=== PATIENT | female | born 1960 | race Caucasian/White ===

== ENCOUNTER 2021-05-04 11:33 | Emergency (ER) | payer MEDICARE, OTHER, SELFPAY ==
[2021-05-04 11:47] VITALS: BP 110/72; BP 141/80; PULSE 83; PULSE 90; RESP 18; TEMP 36.7; O2SAT 96; O2SAT 98; BMI 31.4
--- NOTE | 2021-05-04 11:51 | ED_ITS ---
HPI - Chest Pain General Chief Complaint: Arrhythmia/Palpitations Stated Complaint: chest pain Time Seen by Provider: 05/04/21 11:51 Source: patient Mode of arrival: ambulatory Limitations: no limitations History of Present Illness HPI narrative: Patient with no known coronary artery disease had a stress test, angiogram years ago for atypical chest pain negative negative workup in the past been having uneasiness not feeling good for last 1 month been followed by psychiatrist for chronic pain in the left hip after rib surgery on Cymbalta now. Today just prior to arrival patient noticed palpitation checked her pulse felt like AFib as patient is in medical field called EMS: EKG showed AFib with heart rate more than 150 patient received 20 mg of IV Cardizem by EMS when she arrived her heart rate was less than 100 still AFib. Patient not sure whether she checked her pulse is in last 1 month. Patient just does not feel good unable to explain feeling in the chest no shortness breath no passing-out felt dizzy earlier Related Data Previous Rx's Medication Instructions Recorded diltiazem HCl 120 mg 120 mg PO QAM #30 cap 05/04/21 capsule,extended release 24 hr (Cardizem CD) rivaroxaban 20 mg tablet (Xarelto) 20 mg PO QPM #30 tab 05/04/21 Allergies Allergy/AdvReac Type Severity Reaction Status Date / Time amoxicillin [Amoxicillin] Allergy Mild RASH Verified 05/04/21 11:46 cefaclor [From Ceclor] Allergy Mild RASH Verified 05/04/21 11:46 Sulfa (Sulfonamide Allergy Mild RASH Verified 05/04/21 11:46 Antibiotics) HIVES, rash [Sulfa (Sulfonamides)] doxycycline [DOXYCYCLINE] Allergy Unknown ULCER Verified 05/04/21 11:46 Review of Systems Review of Systems: Yes all other systems are reviewed and are negative [facility] Social History Social History Alcohol intake: never Patient Tobacco Use Status: Never used Tobacco Use of substances other than those prescribed or required for medical reasons: Yes Substance Use Type: Marijuana Substance Use Frequency: Occasionally Advance Directives: Yes Advance Directives Information Provided: Yes Advance Directives on File: No Patient : No Physical Exam Vital Signs: Vital Signs: Last Vital Signs Temp 97.4 F 05/04/21 12:37 Pulse 84 05/04/21 14:26 Resp 18 08/20/21 13:16 BP 112/81 05/04/21 14:26 Pulse Ox 96 05/04/21 13:16 Body Mass Index 31.4 Appearance: Alert. Oriented X3. No acute distress. Eyes: PERRLA, No Nystagmus ENT: Pharynx normal. Oral Mucosa moist Neck: Normal inspection. Neck supple. CVS: IRRegular irregular heart rate, no murmur/gallop, Pulses normal. Respiratory: No respiratory distress. Equal air entry bilateral, no wheezing/rales/rhonchi Abdomen: Soft and nontender. Bowel sounds are present, no mass palpable, no CVA tenderness Skin: Skin warm and dry. Normal skin color. Normal skin turgor. Extremities: No lower extremity edema. No calf tenderness Neuro: Oriented X 3. No motor deficit. No sensory deficit.No cerebellar signs , cranial nerves II-XII intact MDM - Chest Pain MDM Narrative Medical decision making narrative: Patient with new onset atrial fibrillation duration not very clear heart rate controlled after 20 mg of IV Cardizem given by EMS. Patient had used beta-ayana in the past but heart rate dropped to 40s case discussed with Dr. Ndiaye key punch operator advised to give Cardizem CD 120 mg daily and Xarelto 20 mg daily which was given to the patient. Patient advised to follow-up with key punch operator next week for possible cardioversion and further evaluation during he is staying in the ER patient's heart rate stayed less than 100 with transient increased to 110 when ambulated Lab Data Attestation: I reviewed the patient's lab results. Result diagrams: 05/04/21 12:16 05/04/21 12:16 Labs: Lab Results 05/04/21 05/04/21 05/04/21 Range/Units 12:16 12:16 12:16 WBC 5.6 (4.8-10.8) X10*3/uL RBC 4.95 (4.20-5.50) X10*6/uL Hgb 14.6 (12.0-16.0) g/dl Hct 43.6 (37-47) % MCV 88.1 (80-98) fL MCH 29.5 (27.0-33.0) pg MCHC 33.5 (31.0-35.0) g/dl RDW 12.3 (11.0-16.0) % Plt Count 276 (160-400) X10*3/uL MPV 9.9 (9.4-12.3) fL Immature Gran % (Auto) 0.2 (0.0-0.4) % Neut % (Auto) 67.5 (45-73) % Lymph % (Auto) 23.2 (20-40) % [place] % (Auto) 6.1 (2-11) % Eos % (Auto) 2.5 (0-4) % Baso % (Auto) 0.5 (0-2) % Lymph # (Auto) 1.3 (1.2-4.9) X10*3/uL [place] # (Auto) 0.3 (0.1-1.2) X10*3/uL Eos # (Auto) 0.1 (0.0-0.4) X10*3/uL Baso # (Auto) 0.0 (0.0-0.2) X10*3/uL Abs Immat Gran (auto) 0.01 (0.00-0.03) X10*3/uL Absolute Neuts (auto) 3.8 (2.0-8.3) X10*3/uL Absolute Nucleated RBC 0.000 (0.0-0.012) X10*3/uL Nucleated RBC % (auto) 0.0 (0.0-0.2) /100WBC PT 11.3 (9.9-13.0) SEC INR 1.0 (0.9-1.1) APTT 35.3 (24.1-38.0) SEC Sodium 141 (135-145) mmol/L Potassium 4.5 (3.3-5.1) mmol/L Chloride 112 H (96-108) mmol/L Carbon Dioxide 23 (22-29) mmol/L Anion Gap 11 L (12-20) BUN 21 H (9-16) mg/dL Creatinine 0.91 (0.5-1.4) mg/dL Estim Creat Clear Calc 71.9 Estimated GFR > 60 Random Glucose 95 (60-115) mg/dL Calcium 9.1 (8.4-10.2) mg/dL Magnesium 2.1 (1.6-2.6) mg/dL Total Bilirubin (0.0-1.0) mg/dL Direct Bilirubin (0.0-0.5) mg/dL AST (5-31) U/L ALT (0-31) U/L Alkaline Phosphatase (39-117) U/L Troponin I High Sens (<3.5-17.0) ng/L Total Protein (6.5-8.0) g/dL Albumin (3.5-5.0) g/dL COVID-19 (GALDINO) (Negative) COVID-19 Clin Com 05/04/21 05/04/21 05/04/21 Range/Units 12:16 12:16 12:16 WBC (4.8-10.8) X10*3/uL RBC (4.20-5.50) X10*6/uL Hgb (12.0-16.0) g/dl Hct (37-47) % MCV (80-98) fL MCH (27.0-33.0) pg MCHC (31.0-35.0) g/dl RDW (11.0-16.0) % Plt Count (160-400) X10*3/uL MPV (9.4-12.3) fL Immature Gran % (Auto) (0.0-0.4) % Neut % (Auto) (45-73) % Lymph % (Auto) (20-40) % [place] % (Auto) (2-11) % Eos % (Auto) (0-4) % Baso % (Auto) (0-2) % Lymph # (Auto) (1.2-4.9) X10*3/uL [place] # (Auto) (0.1-1.2) X10*3/uL Eos # (Auto) (0.0-0.4) X10*3/uL Baso # (Auto) (0.0-0.2) X10*3/uL Abs Immat Gran (auto) (0.00-0.03) X10*3/uL Absolute Neuts (auto) (2.0-8.3) X10*3/uL Absolute Nucleated RBC (0.0-0.012) X10*3/uL Nucleated RBC % (auto) (0.0-0.2) /100WBC PT (9.9-13.0) SEC INR (0.9-1.1) APTT (24.1-38.0) SEC Sodium (135-145) mmol/L Potassium (3.3-5.1) mmol/L Chloride (96-108) mmol/L Carbon Dioxide (22-29) mmol/L Anion Gap (12-20) BUN (9-16) mg/dL Creatinine (0.5-1.4) mg/dL Estim Creat Clear Calc Estimated GFR Random Glucose (60-115) mg/dL Calcium (8.4-10.2) mg/dL Magnesium (1.6-2.6) mg/dL Total Bilirubin 0.5 (0.0-1.0) mg/dL Direct Bilirubin 0.2 (0.0-0.5) mg/dL AST 15 (5-31) U/L ALT 15 (0-31) U/L Alkaline Phosphatase 67 (39-117) U/L Troponin I High Sens < 3.5 (<3.5-17.0) ng/L Total Protein 6.4 L (6.5-8.0) g/dL Albumin 4.1 (3.5-5.0) g/dL COVID-19 (GALDINO) Negative (Negative) COVID-19 Clin Com See Note Discharge Plan Discharge Clinical Impression: Atrial fibrillation Qualifiers: Atrial fibrillation type: paroxysmal Qualified Code(s): I48.0 - Paroxysmal atrial fibrillation Patient Disposition: Home, Self-Care Instructions: A-fib (Atrial Fibrillation) (ED) Additional Instructions: Stop amlodipine Start taking Cardizem 120 mg daily Xarelto 20 mg daily Avoid caffeine/any exertion See key punch operator next week Report to the ER if persistent palpitation/passing out /chest pain Prescriptions: New diltiazem HCl [Cardizem CD] 120 mg capsule,extended release 24hr 120 mg PO QAM Qty: 30 RF: 0 Xarelto 20 mg tablet 20 mg PO QPM Qty: 30 RF: 0 Referrals: Reid Ndiaye MD [Physician] - 3 days
--- NOTE | 2021-05-04 12:01 | ECG_ITS ---
Test Reason : WEAKNESS Blood Pressure : / mmHG Vent. Rate : 078 BPM Atrial Rate : 220 BPM P-R Int : 000 ms QRS Dur : 078 ms QT Int : 386 ms P-R-T Axes : 000 -09 040 degrees QTc Int : 440 ms Atrial fibrillation Abnormal ECG When compared with ECG of 04-FEB-2016 13:09, Atrial fibrillation has replaced Sinus rhythm Referred By: Joe Huitron Electronically Signed By:EMILY HODGE
[2021-05-04 12:23] LABS: MANUAL DIFF FLAG NO
[2021-05-04 12:27] LABS: Basophils Percent Auto 0.5 % (0-2); Eosinophils Absolute Auto 0.1 X10*3/uL (0.0-0.4); Eosinophils Percent Auto 2.5 % (0-4); Hematocrit 43.6 % (37-47); Hemoglobin 14.6 g/dl (12.0-16.0); Imm Gran Abs Auto 0.01 X10*3/uL (0.00-0.03); Imm Gran Pct Auto 0.2 % (0.0-0.4); Lymphocytes Absolute Auto 1.3 X10*3/uL (1.2-4.9); Lymphocytes Percent Auto 23.2 % (20-40); Mean Corpuscular HGB Conc 33.5 g/dl (31.0-35.0); Mean Corpuscular Hemoglobin 29.5 pg (27.0-33.0); Mean Corpuscular Volume 88.1 fL (80-98); Mean Platelet Volume 9.9 fL (9.4-12.3); Monocytes Absolute Auto 0.3 X10*3/uL (0.1-1.2); Monocytes Percent Auto 6.1 % (2-11); Neutrophils Absolute Auto 3.8 X10*3/uL (2.0-8.3); Neutrophils Percent Auto 67.5 % (45-73); Platelet Count 276 X10*3/uL (160-400); Red Blood Count 4.95 X10*6/uL (4.20-5.50); Red Cell Distribution Width 12.3 % (11.0-16.0); White Blood Count 5.6 X10*3/uL (4.8-10.8)
[2021-05-04 12:33] LABS: Prothrombin Time 11.3 SEC (9.9-13.0)
[2021-05-04 12:36] LABS: Partial Thromboplastin Time 35.3 SEC (24.1-38.0)
[2021-05-04 12:37] VITALS: BP 122/76; PULSE 84; RESP 15; TEMP 36.3; O2SAT 97
[2021-05-04 12:38] LABS: COVID-19 Test Negative (Negative)
[2021-05-04 12:55] LABS: Anion Gap 11 (12-20); Blood Urea Nitrogen 21 mg/dL (9-16); Calcium 9.1 mg/dL (8.4-10.2); Carbon Dioxide 23 mmol/L (22-29); Chloride 112 mmol/L (96-108); Creatinine Clr Calc Pharmacy 71.9; Estimated Glomerular Filt Rate > 60; Glucose Random 95 mg/dL (60-115); Magnesium 2.1 mg/dL (1.6-2.6); Potassium 4.5 mmol/L (3.3-5.1); Sodium 141 mmol/L (135-145)
[2021-05-04 12:57] LABS: Alanine Aminotransferase 15 U/L (0-31); Albumin Level 4.1 g/dL (3.5-5.0); Alkaline Phosphatase 67 U/L (39-117); Aspartate Amino Transferase 15 U/L (5-31); Bilirubin Direct 0.2 mg/dL (0.0-0.5); Bilirubin Total 0.5 mg/dL (0.0-1.0); Total Protein 6.4 g/dL (6.5-8.0)
[2021-05-04 12:59] LABS: Troponin-I High Sensitivity < 3.5 ng/L (<3.5-17.0)
[2021-05-04 13:16] VITALS: BP 132/64; PULSE 97; RESP 18; O2SAT 96
[2021-05-04 13:17] VITALS: PULSE 90
[2021-05-04 14:26] VITALS: BP 112/81; PULSE 84
[2021-05-04] MEDS: dilTIAZem HCL CD 120 MG CAP.ER.DEG PO (14:26)
[2021-05-04] MEDS: Aspirin 81 MG TAB.CHEW PO (14:28)
--- NOTE | 2021-05-04 14:30 | PC.NURSE ---
Pt had gotten up to commode with HR incrasing into 150s. MD ordered po medications. Meds just given but HR back down on its own with rest. BP remains stable. Pt in NAD but states that she still feels off and uncomfortbale .
[2021-05-04] MEDS: Rivaroxaban 20 MG TABLET PO (14:45)
== END 2021-05-04 15:55 | disposition home or self-care (01) ==
PROVIDERS: Emergency Provider Internal Medicine
DX: I48.0 Paroxysmal atrial fibrillation (principal); R07.9 Chest pain, unspecified; Z20.822 Contact with and (suspected) exposure to COVID-19; I10 Essential (primary) hypertension; E78.5 Hyperlipidemia, unspecified; Z85.51 Personal history of malignant neoplasm of bladder
CPT/HCPCS: 36415; 80048; 80076; 83735; 84484; 85025; 85610; 85730; 87635; 93005; 99284; 99285

== ENCOUNTER → 2021-05-09 08:24 | Outpatient (BNVA) | payer MEDICARE, SELFPAY | PROVIDERS: PCP Internal Medicine Medical Oncology; Referring Provider Internal Medicine Medical Oncology; Visit Provider Internal Medicine Cardiovascular Disease | DX: R07.89 Other chest pain (principal); I48.0 Paroxysmal atrial fibrillation | CPT/HCPCS: 93005; 99202 ==

== ENCOUNTER → 2021-05-23 10:43 | Outpatient (REF) | payer MEDICARE, SELFPAY ==
--- NOTE | 2021-05-23 10:58 | HM_ITS ---
Patient underwent Holter monitor for total of 6 days and 23 hours. Baseline rhythm was normal sinus rhythm with average heart rate of 62 beats per minute No significant pauses noted No episodes of sustained or prolonged atrial fibrillation noted Total burden of PACs at 207 beats, consistent with very rare PACs with 0.03%. One short 6 beat run of SVEs which is irregular. Patient reported 1 episode of feeling faint and correlated with sinus bradycardia at 48 beats per minute. Other patient reported events correlated with sinus rhythm. MTDD
--- NOTE | 2021-05-23 11:19 | CA_ITS ---
Acquisition Time: 2021-05-23 11:20:57 Total Exercise Time: 00:06:11 Test Indications: cp, sob Medications: see chart Protocol: STU Max HR: 148 BPM 91% of Pred: 161 BPM Max BP: 196/070 mmHG Max Work Load: 7.2 METS Exercise stress test with exercise 6 min 11 sec of Stu protocol, with moderate to severe shortness of breath, no chest discomfort, without arrythmia, with BP 160/88 and rise to 196/70 with exercise, with artifact at peak exercise, without EKG changes meeting criteria for ischemia at 36 sec of recovery and remainder of recovery. In recovery BP lowered to 130/78 and sob gradually resolved. Echo images obtained by tech at rest and immediately post peak exercise. Definity contrast used. Test reviewed with Dr Ndiaye. Referred By: Reid Ndiaye Overread By: AARON DOMINGO
[2021-05-23 12:16] LABS: Cholesterol 292 mg/dL; HDL Cholesterol 53 mg/dL; LDL Cholesterol Calculated 204 mg/dl; Triglycerides 178 mg/dL
== END ==
LOC: HO.CARD 10:43
PROVIDERS: Visit Provider Internal Medicine Cardiovascular Disease
DX: R07.89 Other chest pain (principal); I48.0 Paroxysmal atrial fibrillation; I25.10 Atherosclerotic heart disease of native coronary artery without angina pectoris; E78.5 Hyperlipidemia, unspecified
CPT/HCPCS: 36415; 80061; 86141; 93242; 93350; Q9957

== ENCOUNTER 2021-05-30 10:24 | Outpatient (REF) | payer MEDICARE, SELFPAY ==
[2021-05-30 14:07] LABS: Hematocrit 38.6 % (37-47); Hemoglobin 12.8 g/dl (12.0-16.0); Mean Corpuscular HGB Conc 33.2 g/dl (31.0-35.0); Mean Corpuscular Hemoglobin 29.5 pg (27.0-33.0); Mean Corpuscular Volume 88.9 fL (80-98); Mean Platelet Volume 10.8 fL (9.4-12.3); Platelet Count 249 X10*3/uL (160-400); Red Blood Count 4.34 X10*6/uL (4.20-5.50); Red Cell Distribution Width 12.7 % (11.0-16.0); White Blood Count 5.1 X10*3/uL (4.8-10.8)
[2021-05-30 14:09] LABS: INTERNATIONAL NORM RATIO 1.1 (0.9-1.1); Prothrombin Time 12.2 SEC (9.9-13.0)
[2021-05-30 14:30] LABS: Anion Gap 12 (12-20); Blood Urea Nitrogen 14 mg/dL (9-16); Calcium 9.7 mg/dL (8.4-10.2); Carbon Dioxide 26 mmol/L (22-29); Chloride 110 mmol/L (96-108); Estimated Glomerular Filt Rate > 60; Glucose Random 88 mg/dL (60-115); Potassium 4.6 mmol/L (3.3-5.1); Sodium 143 mmol/L (135-145)
== END 2021-05-30 10:25 | disposition home or self-care (01) ==
LOC: HO.LAB 10:24
PROVIDERS: PCP Internal Medicine Medical Oncology; Referring Provider Internal Medicine Medical Oncology; Visit Provider Internal Medicine Cardiovascular Disease
DX: R06.02 Shortness of breath (principal); I10 Essential (primary) hypertension; I48.0 Paroxysmal atrial fibrillation; Z79.01 Long term (current) use of anticoagulants
CPT/HCPCS: 36415; 80048; 85027; 85610; 99212

== ENCOUNTER → 2021-06-06 13:28 | Outpatient (BNVA) | payer MEDICARE, SELFPAY | PROVIDERS: PCP Internal Medicine Medical Oncology; Visit Provider Nurse Practitioner Family | DX: Z51.89 Encounter for other specified aftercare (principal); R06.02 Shortness of breath; Z98.890 Other specified postprocedural states | CPT/HCPCS: 99212 ==

== ENCOUNTER → 2021-06-14 12:58 | Outpatient (BNVA) | payer MEDICARE, SELFPAY | PROVIDERS: PCP Internal Medicine Medical Oncology; Visit Provider Internal Medicine Cardiovascular Disease | DX: Z01.810 Encounter for preprocedural cardiovascular examination (principal); I25.10 Atherosclerotic heart disease of native coronary artery without angina pectoris; I48.0 Paroxysmal atrial fibrillation | CPT/HCPCS: 99212 ==

== ENCOUNTER → 2022-09-20 11:53 | Outpatient (BNVA) | payer MEDICARE, SELFPAY | PROVIDERS: PCP Internal Medicine Medical Oncology; Visit Provider Psychiatry & Neurology Psychiatry | DX: C67.9 Malignant neoplasm of bladder, unspecified (principal); F33.9 Major depressive disorder, recurrent, unspecified; F41.1 Generalized anxiety disorder; I25.10 Atherosclerotic heart disease of native coronary artery without angina pectoris; I10 Essential (primary) hypertension; I48.0 Paroxysmal atrial fibrillation; Z98.890 Other specified postprocedural states | CPT/HCPCS: 90833; 99212 ==

== ENCOUNTER → 2022-11-01 14:09 | Outpatient (BNVA) | payer MEDICARE, SELFPAY | PROVIDERS: PCP Internal Medicine Medical Oncology; Visit Provider Psychiatry & Neurology Psychiatry | DX: Z13.89 Encounter for screening for other disorder (principal) ==

== ENCOUNTER → 2022-12-25 12:27 | Outpatient (BNVA) | payer MEDICARE, SELFPAY | PROVIDERS: PCP Internal Medicine Medical Oncology; Visit Provider Psychiatry & Neurology Psychiatry | DX: F41.1 Generalized anxiety disorder (principal); F33.9 Major depressive disorder, recurrent, unspecified | CPT/HCPCS: 90833; 99212 ==

== ENCOUNTER 2023-01-16 09:46 | Outpatient (REF) | payer MEDICARE, SELFPAY ==
--- NOTE | ~2023-01-16 | XR_ITS ---
EXAMINATION: XR CHEST CLINICAL INFORMATION: Pneumonia COMPARISON: Previous chest x-ray most recent from 2016 TECHNIQUE: 2 views of the chest were obtained. FINDINGS: The cardiac and mediastinal contours are stable. The lungs are clear. No pleural effusion or pneumothorax. Mild thoracic scoliosis and degenerative changes. Postsurgical changes to the lower cervical spine. XR/XR chest 2V IMPRESSION: No evidence of pneumonia.
== END 2023-01-16 09:47 | disposition home or self-care (01) ==
LOC: HO.XRAY 09:46
PROVIDERS: PCP Internal Medicine Medical Oncology; Visit Provider Internal Medicine Medical Oncology
DX: J18.9 Pneumonia, unspecified organism (principal)
CPT/HCPCS: 71046

== ENCOUNTER → 2023-02-25 12:08 | Outpatient (BNVA) | payer MEDICARE, SELFPAY | PROVIDERS: PCP Internal Medicine Medical Oncology; Visit Provider Psychiatry & Neurology Psychiatry | DX: F41.1 Generalized anxiety disorder (principal); F33.9 Major depressive disorder, recurrent, unspecified; I25.10 Atherosclerotic heart disease of native coronary artery without angina pectoris | CPT/HCPCS: 90833; 99212 ==

== ENCOUNTER 2023-03-25 15:56 | Outpatient (REF) | payer MEDICARE, SELFPAY ==
[2023-03-25 16:11] LABS: MANUAL DIFF FLAG NO
[2023-03-25 17:41] LABS: Basophils Percent Auto 0.4 % (0-2); Eosinophils Absolute Auto 0.1 X10*3/uL (0.0-0.4); Hemoglobin 13.7 g/dl (12.0-16.0); Imm Gran Abs Auto 0.01 X10*3/uL (0.00-0.03); Imm Gran Pct Auto 0.1 % (0.0-0.4); Lymphocytes Absolute Auto 1.3 X10*3/uL (1.2-4.9); Lymphocytes Percent Auto 18.8 % (20-40); Mean Corpuscular HGB Conc 32.6 g/dl (31.0-35.0); Mean Corpuscular Hemoglobin 29.6 pg (27.0-33.0); Mean Corpuscular Volume 90.7 fL (80.0-98.0); Mean Platelet Volume 10.9 fL (9.4-12.3); Monocytes Absolute Auto 0.5 X10*3/uL (0.1-1.2); Monocytes Percent Auto 6.6 % (2-11); Neutrophils Absolute Auto 5.1 x10*3/uL (2.0-8.3); Neutrophils Percent Auto 72.1 % (45-73); Platelet Count 250 X10*3/uL (160-400); Red Blood Count 4.63 X10*6/uL (4.20-5.50); Red Cell Distribution Width 12.9 % (11.0-16.0); White Blood Count 7.1 X10*3/uL (4.8-10.8)
[2023-03-25 18:20] LABS: Alanine Aminotransferase 34 U/L (0-31); Albumin Level 4.3 g/dL (3.5-5.0); Alkaline Phosphatase 60 U/L (39-117); Anion Gap 13 (12-20); Aspartate Amino Transferase 23 U/L (5-31); Bilirubin Total 1.4 mg/dL (0.0-1.0); Blood Urea Nitrogen 15 mg/dL (9-16); Calcium 9.6 mg/dL (8.4-10.2); Carbon Dioxide 24 mmol/L (22-29); Chloride 109 mmol/L (96-108); Estimated Glomerular Filt Rate > 60; Glucose Random 96 mg/dL (60-115); Lipase 24 U/L (8-78); Potassium 3.6 mmol/L (3.3-5.1); Sodium 142 mmol/L (135-145); Total Protein 6.8 g/dL (6.5-8.0)
[2023-03-25 18:38] LABS: Amylase 76 U/L (28-100)
== END 2023-03-25 15:57 | disposition home or self-care (01) ==
LOC: HO.LAB 15:56
PROVIDERS: PCP Internal Medicine Medical Oncology; Visit Provider Internal Medicine Medical Oncology
DX: R10.10 Upper abdominal pain, unspecified (principal); K30 Functional dyspepsia; K29.70 Gastritis, unspecified, without bleeding
CPT/HCPCS: 36415; 80053; 82150; 83690; 85025

== ENCOUNTER 2023-04-09 08:13 | Emergency (ER) | payer MEDICARE, MEDICAID, SELFPAY ==
--- NOTE | ~2023-04-09 | XR_ITS ---
EXAMINATION: XR ABDOMEN KUB CLINICAL INDICATION: Severe abdominal pain barium swallow 6 days ago. COMPARISON: None available. TECHNIQUE: AP view of the abdomen. FINDINGS: There is a nonobstructive bowel gas pattern. Residual contrast is seen within the colon distally to the rectum without associated abnormality. No abnormal calcifications. The osseous structures show mild right hip degenerative joint changes. Left hip hardware is intact. Surgical clips overlie the right upper quadrant. XR/XR abdomen 1V IMPRESSION: 1. Nonobstructive bowel gas pattern. 2. Residual contrast in the colon distally to the rectum without associated abnormality.
[2023-04-09 08:18] VITALS: BP 181/96; PULSE 64; RESP 20; TEMP 36.9; O2SAT 98; BMI 30.6
--- NOTE | 2023-04-09 08:21 | ED_ITS ---
HPI - General Adult General Chief complaint: Abdominal Pain Stated complaint: abd pain Time Seen by Provider: 04/09/23 08:17 Source: patient, family (), RN notes reviewed and old records reviewed Mode of arrival: ambulatory Limitations: no limitations History of Present Illness HPI narrative: Patient is a 62-year-old female with history of CAD, bladder cancer in remission, choecystectomy, HTN, HLD, proximal atrial fibrillation, anxiety/depression presenting to the emergency department with 2 weeks of epi gasric/supraumbilical abdominal pain. Has seen Dr. Melissa several times for same. Had upper GI/barium swallow , saw Dr. Melissa Friday and he recommended she go to the ED due to abdominal tenderness. Patient went to [facility] ED on Friday where they attempted to perform an abdominal CT however were unable to as patient still had significant amount of barium in her system. They prescribed morphine and nausea medications for patient to return home with. Patient reports she has had constipation. She saw Dr. Melissa again on Friday, drank half a bottle of MiraLax as well as Dulcolax and drink coffee which typically causes her to have a bowel movement and only had 2 small, hard bowel movements that day. Denies blood in stool or dark, tarry stool. Saw Dr. Melissa again yesterday who scheduled an outpatient ultrasound add [facility] for tomorrow as well as a CT which has not yet been scheduled. Reports last night she developed a began vomiting bright red blood, still complaining of nausea. Did have 1 small, hard bowel movement again yesterday, none today. Reports decreased appetite a, has lost 2 lb since Friday. MD complaint: Abdominal pain Onset (ago): week(s) Location: abdomen Radiation: non-radiation Severity: severe Quality: aching Pain Consistency: constant Relieving factors: none Exacerbating factors: eating and other (palpation) Associated symptoms: nausea/vomiting Treatments prior to arrival: NSAID Related Data Home Medications Medication Instructions Recorded Confirmed meloxicam 15 mg tablet 15 mg PO DAILY 05/09/21 12/25/22 olmesartan 40 mg tablet 40 mg PO DAILY 05/09/21 12/25/22 Previous Rx's Medication Instructions Recorded amlodipine 2.5 mg tablet (Norvasc) 2.5 mg PO DAILY 90 days #90 tabs 11/19/21 rosuvastatin 20 mg tablet (Crestor) 20 mg PO DAILY 90 days #90 tabs 11/19/21 escitalopram oxalate 5 mg tablet 5 mg PO DAILY #90 tabs 12/25/22 (Lexapro) lamotrigine 150 mg tablet 150 mg PO Q12H #180 tabs 12/25/22 lorazepam 0.5 mg tablet 0.5 mg PO TID PRN anxiety #90 tabs 02/10/23 gabapentin 100 mg capsule 100 - 200 mg PO BEDTIME #60 caps 02/25/23 dicyclomine 10 mg capsule 10 mg PO TID #20 caps 04/09/23 magnesium citrate 150 ml PO BID PRN constipation 04/09/23 #296 mL metoclopramide HCl 5 mg tablet 5 mg PO TIDWMEAL #12 tabs 04/09/23 Allergies Allergy/AdvReac Type Severity Reaction Status Date / Time amoxicillin [Amoxicillin] Allergy Mild RASH Verified 06/06/21 13:38 cefaclor [From Ceclor] Allergy Mild RASH Verified 06/06/21 13:38 Sulfa (Sulfonamide Allergy Mild RASH Verified 06/06/21 13:38 Antibiotics) HIVES, rash [Sulfa (Sulfonamides)] doxycycline [DOXYCYCLINE] Allergy Unknown ULCER Verified 06/06/21 13:38 Review of Systems Review of Systems: As per HPI. Yes all other systems are reviewed and are negative Constitutional: Constitutional: Reports as per HPI Eyes: Eyes: Denies floaters PMFSH Past Medical History Medical History (Updated 04/09/23 @ 10:17 by Daly Jimenez NP) Bladder cancer CAD (coronary artery disease) Family history of premature coronary artery disease Generalized anxiety disorder HTN (hypertension) Hyperlipidemia Major depression, recurrent, chronic Paroxysmal atrial fibrillation Surgical History History of hip surgery S/P cardiac cath Family History Family History Father CAD (coronary artery disease) Mother HTN (hypertension) Cancer Brother HTN (hypertension) Sister HTN (hypertension) Paternal Grandmother Stroke Paternal Grandfather CAD (coronary artery disease) Paternal Uncle CAD (coronary artery disease) Social History Social History Alcohol intake: never Patient Tobacco Use Status: Never used Tobacco Substance Use Type: Marijuana Advance Directives: No Physical Exam ED Vital Signs: Vital Signs - 24 hr 04/09/23 08:18 Temperature 98.4 F Pulse Rate 64 Respiratory Rate 20 Blood Pressure 181/96 H Pulse Oximetry 98 Oxygen Delivery Method Room Air BMI result Body Mass Index 30.6 Vital signs have been reviewed and appear to be correct. Blood pressure elevated. Heart rate normal. Respiratory rate normal. Temperature normal. Oxygen saturation normal. Const General: cooperative, healthy appearing and no acute distress Orientation/consciousness: oriented to person, oriented to place, oriented to time and patient oriented x3 Limitations: no limitations HENMT Head: Yes normocephalic and Yes atraumatic Ears: external ears normal General nose exam: Normal external nose present Face and sinus: Yes face symmetric Mouth: oropharynx normal and moist mucous membranes Throat: Yes uvula midline Eyes Pupils: Equal, round and reactive pupils present Neck Neck: Yes normal visual inspection and Yes supple Resp Effort & Inspection: normal respiratory effort and able to speak in complete sentences Auscultation: clear to auscultation bilaterally Cardio Rate: regular rate Rhythm: regular rhythm Heart sounds: S1 normal heart sound present and S2 normal heart sound present GI Inspection: Yes normal to inspection and No distended Palpation (GI): Soft to palpation, Tenderness to palpation present (GI) in the epigastrum and periumbilically; with no rebound tenderness and no guarding Auscultation: normoactive bowel sounds General: Yes no CVA tenderness Back/Spine/Pelvis Back: no CVA tenderness Skin General skin exam: elasticity normal and turgor normal Neuro General: oriented to person, oriented to place, oriented to time, patient oriented x3, moves all extremities, no focal motor deficits and CN's II-XI intact bilaterally Cranial nerves: Yes Equal, round and reactive pupils present Cognition (Neuro): normal cognition Extrem General: Yes full ROM, Yes no pedal edema and Yes no calf tenderness Psych Mental Status: mental status grossly normal Affect: normal affect Thought process: Normal thought process present Medications Administered Discontinued Medications Generic Name Dose Route Start Last Admin Trade Name Freq PRN Reason Stop Dose Admin Morphine Sulfate 1 mg 04/09/23 08:37 04/09/23 08:47 Morphine Sulfate 2 Mg/Ml Cartridge IVPUSH 04/09/23 08:38 1 mg ONCE ONE Administration Protocol Ondansetron HCl 4 mg 04/09/23 08:37 07/26/23 08:47 Ondansetron Hcl 4 Mg/2 Ml Vial IVPUSH 04/09/23 08:38 4 mg ONCE ONE Administration Medical Decision Making Medical Decision Making [facility] Narrative: Patient is a 62-year-old female with history of CAD, bladder cancer in remission, choecystectomy, HTN, HLD, proximal atrial fibrillation, anxiety/depression presenting to the emergency department with 2 weeks of epigasric/periumbilical abdominal pain. On exam patient is awake, A+Ox3, tearful, BP elevated likely secondary to pain and patient states she did not take her BP medication this morning due to nausea, VS WNL, afebrile, normal neurological exam without focal deficits, abdomen soft, tender to palpation epigastric/periumbilical, no guarding or rebound tenderness, no CVA tenderness. Given reported symptoms and physical exam findings, initial differential includes bowel obstruction, new malignancy/mass, constipation. Less likely ACS, UTI/pyelo, renal calculi. Unlikely AAA rupture, aortic dissection. Labs notable for no leukocytosis, normal H&H, elevation of LFTs from 03/25 labs, negative troponin. EKG sinus bradycardia, no evidence of ischemia. X-ray abdomen notable for nonobstructive bowel gas pattern with residual contrast. Per radiologist, CT imaging would be impaired and provide limited diagnostic information based on residual contrast. My interpretation is in agreement with the radiologist's interpretation. Discussed case with Dr. Sepulveda who agrees patient is stable for discharge home with outpatient follow up. Will prescribe metoclopramide and dicyclomine for pain control. Instructed patient to follow up with Dr. Melissa today to discuss U/S scheduled for tomorrow, will likely need to be rescheduled due to contrast. Discussed with patient that she should also have repeat labs within a week to ensure H&H is stable and to assess for further elevation of LFTs. All results discussed and all questions answered. Return precautions discussed at bedside. Patient and verbalized understanding of and agreement with plan. Differential Diagnosis Differential Diagnoses: The differential diagnosis associated with the presentation includes As per [facility]. Admission/Observation Consideration of admission/observation: Escalation of care including admission/observation considered Considered on arrival given abdominal tenderness and concern for possible bowel obstruction Consult Healthcare Provider Dr. Sepulveda Lab Data [facility] Lab Attestation statement: I reviewed the patient's lab results. As per [facility]. 04/09/23 08:42 04/09/23 08:42 Labs: Lab Results 04/09/23 04/09/23 04/09/23 Range/Units 08:42 08:42 08:42 WBC 5.6 (4.8-10.8) X10*3/uL RBC 4.77 (4.20-5.50) X10*6/uL Hgb 14.0 (12.0-16.0) g/dl Hct 42.2 (37.0-47.0) % MCV 88.5 (80.0-98.0) fL MCH 29.4 (27.0-33.0) pg MCHC 33.2 (31.0-35.0) g/dl RDW 12.5 (11.0-16.0) % Plt Count 180 D (160-400) X10*3/uL MPV 9.9 (9.4-12.3) fL Immature Gran % (Auto) 0.0 (0.0-0.4) % Neut % (Auto) 65.8 (45-73) % Lymph % (Auto) 23.0 (20-40) % Clare % (Auto) 7.8 (2-11) % Eos % (Auto) 3.0 (0-4) % Baso % (Auto) 0.4 (0-2) % Lymph # (Auto) 1.3 (1.2-4.9) X10*3/uL Clare # (Auto) 0.4 (0.1-1.2) X10*3/uL Eos # (Auto) 0.2 (0.0-0.4) X10*3/uL Baso # (Auto) 0.0 (0.0-0.2) X10*3/uL Abs Immat Gran (auto) 0.00 (0.00-0.03) X10*3/uL Absolute Neuts (auto) 3.7 (2.0-8.3) x10*3/uL Absolute Nucleated RBC 0.000 (0.0-0.012) X10*3/uL Nucleated RBC % (auto) 0.0 (0.0-0.2) /100WBC PT 11.3 (11.1-13.3) SEC INR 0.9 (0.9-1.1) Sodium 141 (135-145) mmol/L Potassium 4.8 D (3.3-5.1) mmol/L Chloride 108 (96-108) mmol/L Carbon Dioxide 27 (22-29) mmol/L Anion Gap 11 L (12-20) BUN 13 (9-16) mg/dL Creatinine 0.99 (0.5-1.4) mg/dL Estim Creat Clear Calc 61.3 Estimated GFR 57 Random Glucose 99 (60-115) mg/dL Calcium 9.9 (8.4-10.2) mg/dL Total Bilirubin 1.4 H (0.0-1.0) mg/dL AST 38 H (5-31) U/L ALT 50 H (0-31) U/L Alkaline Phosphatase 64 (39-117) U/L Troponin I High Sens (<3.5-17.0) ng/L Total Protein 7.2 (6.5-8.0) g/dL Albumin 4.4 (3.5-5.0) g/dL Lipase 23 (8-78) U/L Urine Color Urine Appearance Urine pH (5.0-9.0) Ur Specific Bassett (1.005-1.025) Urine Protein (Neg-Trace) mg/dL Urine Glucose (UA) (Negative) mg/dL Urine Ketones (Negative) mg/dL Urine Blood (Negative) Urine Nitrite (Negative) Ur Leukocyte Esterase (Negative) 04/09/23 04/09/23 Range/Units 08:42 09:41 WBC (4.8-10.8) X10*3/uL RBC (4.20-5.50) X10*6/uL Hgb (12.0-16.0) g/dl Hct (37.0-47.0) % MCV (80.0-98.0) fL MCH (27.0-33.0) pg MCHC (31.0-35.0) g/dl RDW (11.0-16.0) % Plt Count (160-400) X10*3/uL MPV (9.4-12.3) fL Immature Gran % (Auto) (0.0-0.4) % Neut % (Auto) (45-73) % Lymph % (Auto) (20-40) % Clare % (Auto) (2-11) % Eos % (Auto) (0-4) % Baso % (Auto) (0-2) % Lymph # (Auto) (1.2-4.9) X10*3/uL Clare # (Auto) (0.1-1.2) X10*3/uL Eos # (Auto) (0.0-0.4) X10*3/uL Baso # (Auto) (0.0-0.2) X10*3/uL Abs Immat Gran (auto) (0.00-0.03) X10*3/uL Absolute Neuts (auto) (2.0-8.3) x10*3/uL Absolute Nucleated RBC (0.0-0.012) X10*3/uL Nucleated RBC % (auto) (0.0-0.2) /100WBC PT (11.1-13.3) SEC INR (0.9-1.1) Sodium (135-145) mmol/L Potassium (3.3-5.1) mmol/L Chloride (96-108) mmol/L Carbon Dioxide (22-29) mmol/L Anion Gap (12-20) BUN (9-16) mg/dL Creatinine (0.5-1.4) mg/dL Estim Creat Clear Calc Estimated GFR Random Glucose (60-115) mg/dL Calcium (8.4-10.2) mg/dL Total Bilirubin (0.0-1.0) mg/dL AST (5-31) U/L ALT (0-31) U/L Alkaline Phosphatase (39-117) U/L Troponin I High Sens < 2.7 (<3.5-17.0) ng/L Total Protein (6.5-8.0) g/dL Albumin (3.5-5.0) g/dL Lipase (8-78) U/L Urine Color Yellow Urine Appearance Clear Urine pH 6.5 (5.0-9.0) Ur Specific Bassett 1.010 (1.005-1.025) Urine Protein Negative (Neg-Trace) mg/dL Urine Glucose (UA) Negative (Negative) mg/dL Urine Ketones Negative (Negative) mg/dL Urine Blood Negative (Negative) Urine Nitrite Negative (Negative) Ur Leukocyte Esterase Negative (Negative) Independent Interpretation I performed an independent interpretation of an: EKG and Plain X-Ray Interpretation: EKG: sinus bradycardia, rate 57bpm, normal LA interval, no evidence of STEMI Abdominal x-ray: Nonobstrutive gas pattern, residual contrast Radiology Impression Discussion of test interpretation with radiology: I have reviewed the radiologist's reading. Radiologist Impression: FINDINGS: There is a nonobstructive bowel gas pattern. Residual contrast is seen within the colon distally to the rectum without associated abnormality. No abnormal calcifications. The osseous structures show mild right hip degenerative joint changes. Left hip hardware is intact. Surgical clips overlie the right upper quadrant. XR/XR abdomen 1V IMPRESSION: 1.? Nonobstructive bowel gas pattern. 2.? Residual contrast in the colon distally to the rectum without associated abnormality. ? Independent Historian Clinical information obtained from an independent historian. History obtained from or confirmed by: Spouse External Record Review External record reviewed: Inpatient record, Office record and Outpatient record Attempted to obtain ED records from [facility], not able to obtain prior to discharge Tests considered The following testing was considered but not selected: Considered abdominal CT but unable to obtain due to residual contrast Prescription Management I considered prescription management with: Pain Medication and Other Discharge Plan Discharge Clinical Impression: Abdominal pain Patient Disposition: Home, Self-Care Instructions: Acute Abdominal Pain (DC) Additional Instructions: You have been evaluated in the emergency department today for abdominal pain. Your evaluation did not show evidence of medical conditions requiring emergent intervention at this time. Please call your primary care physician CAROLINE to discuss today's visit and schedule follow up including repeat CBC, LFTs. Return to the emergency department if you experience worsening or uncontrolled pain, fevers 100.4? F or greater, recurrent vomiting, inability to tolerate food or fluids by mouth, bloody stools or vomit, black or tarry stools, or any other concerning symptoms. You are being prescribed Bentyl (dicyclomine) for abdominal cramping as well as Reglan (metoclopramide) to take before meals to aid in gastric motility. You can also try magnesium for your constipation. Prescriptions: New dicyclomine 10 mg capsule 10 mg PO TID Qty: 20 0RF metoclopramide HCl 5 mg tablet 5 mg PO TIDWMEAL Qty: 12 0RF magnesium citrate Solution 150 ml PO BID PRN (Reason: constipation) Qty: 296 0RF No Action amlodipine [Norvasc] 2.5 mg tablet 2.5 mg PO DAILY 90 Days Qty: 90 0RF Rx Instructions: Please call and schedule follow-up and do lab work rosuvastatin [Crestor] 20 mg tablet 20 mg PO DAILY 90 Days Qty: 90 0RF Rx Instructions: Please call and schedule follow-up and do lab work lorazepam 0.5 mg tablet 0.5 mg PO TID PRN (Reason: anxiety) Qty: 90 2RF olmesartan 40 mg tablet 40 mg PO DAILY meloxicam 15 mg tablet 15 mg PO DAILY lamotrigine 150 mg tablet 150 mg PO Q12H Qty: 180 1RF escitalopram oxalate [Lexapro] 5 mg tablet 5 mg PO DAILY Qty: 90 1RF gabapentin 100 mg capsule 100 - 200 mg PO BEDTIME Qty: 60 2RF
--- NOTE | 2023-04-09 08:22 | ECG_ITS ---
Test Reason : CHEST PRESSURE Blood Pressure : / mmHG Vent. Rate : 057 BPM Atrial Rate : 057 BPM P-R Int : 176 ms QRS Dur : 084 ms QT Int : 430 ms P-R-T Axes : 076 -03 032 degrees QTc Int : 418 ms Sinus bradycardia Otherwise normal ECG When compared with ECG of 04-MAY-2021 12:04, Sinus rhythm has replaced Atrial fibrillation Referred By: Daly Jimenez Electronically Signed By:DEEP BARTHOLOMEW MD
[2023-04-09 08:46] LABS: MANUAL DIFF FLAG NO
[2023-04-09] MEDS: ondansetron HCL 4 MG/2 ML VIAL IVPUSH (08:47)
[2023-04-09] MEDS: Morphine Sulfate 2 MG/ML CARTRIDGE 1 MG IVPUSH (08:47)
[2023-04-09 08:49] LABS: Basophils Percent Auto 0.4 % (0-2); Eosinophils Absolute Auto 0.2 X10*3/uL (0.0-0.4); Hematocrit 42.2 % (37.0-47.0); Lymphocytes Absolute Auto 1.3 X10*3/uL (1.2-4.9); Mean Corpuscular HGB Conc 33.2 g/dl (31.0-35.0); Mean Corpuscular Hemoglobin 29.4 pg (27.0-33.0); Mean Corpuscular Volume 88.5 fL (80.0-98.0); Mean Platelet Volume 9.9 fL (9.4-12.3); Monocytes Absolute Auto 0.4 X10*3/uL (0.1-1.2); Monocytes Percent Auto 7.8 % (2-11); Neutrophils Absolute Auto 3.7 x10*3/uL (2.0-8.3); Neutrophils Percent Auto 65.8 % (45-73); Platelet Count 180 X10*3/uL (160-400); Red Blood Count 4.77 X10*6/uL (4.20-5.50); Red Cell Distribution Width 12.5 % (11.0-16.0); White Blood Count 5.6 X10*3/uL (4.8-10.8)
--- NOTE | 2023-04-09 08:52 | PC.NURSE ---
IV, MEDICATED ORDERED, SKIN WPD, NAUSEA AND DRY HEAVES, ABD PAIN X 2 WEEKS
[2023-04-09 08:54] LABS: INTERNATIONAL NORM RATIO 0.9 (0.9-1.1); Prothrombin Time 11.3 SEC (11.1-13.3)
[2023-04-09 09:05] LABS: Alanine Aminotransferase 50 U/L (0-31); Albumin Level 4.4 g/dL (3.5-5.0); Alkaline Phosphatase 64 U/L (39-117); Anion Gap 11 (12-20); Aspartate Amino Transferase 38 U/L (5-31); Bilirubin Total 1.4 mg/dL (0.0-1.0); Blood Urea Nitrogen 13 mg/dL (9-16); Calcium 9.9 mg/dL (8.4-10.2); Carbon Dioxide 27 mmol/L (22-29); Chloride 108 mmol/L (96-108); Creatinine Clr Calc Pharmacy 61.3; Estimated Glomerular Filt Rate 57; Glucose Random 99 mg/dL (60-115); Lipase 23 U/L (8-78); Potassium 4.8 mmol/L (3.3-5.1); Sodium 141 mmol/L (135-145); Total Protein 7.2 g/dL (6.5-8.0)
[2023-04-09 09:13] LABS: Troponin-I High Sensitivity < 2.7 ng/L (<3.5-17.0)
[2023-04-09 09:47] LABS: Appearance Urine Clear; Color Urine Yellow; Glucose Urine UA Negative (Negative); Leukocyte Esterase Urine Negative (Negative); Nitrite Urine Negative (Negative); PH 6.5 (5.0-9.0); Urine Blood Negative (Negative); Urine Ketones Negative (Negative); Urine Protein Negative (Neg-Trace)
[2023-04-09] MEDS: Metoclopramide HCl 10 MG/2 ML VIAL IVPUSH (10:10)
[2023-04-09] MEDS: Dicyclomine HCl 10 MG CAPSULE PO (10:12)
== END 2023-04-09 10:45 | disposition home or self-care (01) ==
PROVIDERS: Registered Nurse Emergency; Emergency Provider Emergency Medicine; PCP Internal Medicine Medical Oncology
DX: R10.9 Unspecified abdominal pain (principal); I10 Essential (primary) hypertension; E78.5 Hyperlipidemia, unspecified; I48.0 Paroxysmal atrial fibrillation; Z79.899 Other long term (current) drug therapy
CPT/HCPCS: 36415; 74018; 80053; 81003; 83690; 84484; 85025; 85610; 93005; 96374; 96375; 99283; 99284; J2270; J2405; J2765

== ENCOUNTER → 2023-04-09 08:22 | Outpatient (BNV) | payer MEDICARE, SELFPAY | PROVIDERS: Emergency Provider Emergency Medicine; PCP Internal Medicine Medical Oncology; Visit Provider Internal Medicine Cardiovascular Disease | DX: R07.9 Chest pain, unspecified (principal) | CPT/HCPCS: 93010 ==

== ENCOUNTER 2023-04-10 10:01 | Outpatient (REF) | payer MEDICARE, SELFPAY ==
--- NOTE | ~2023-04-10 | US_ITS ---
EXAMINATION: US ABDOMEN COMPLETE CLINICAL INFORMATION: Epigastric pain. COMPARISON: X-ray abdomen 04/09/2023. CT abdomen and pelvis 11/21/2016. Ultrasound abdomen 12/17/2013. TECHNIQUE: Real-time imaging of the abdominal viscera. Limited visualization due to bowel gas and body habitus. FINDINGS: PANCREAS: Limited visualization of pancreatic tail and head. Imaged portion of pancreatic body is unremarkable. ABDOMINAL AORTA: Nonaneurysmal. INFERIOR VENA CAVA: Visualized portions are normal. LIVER: Diffuse increase in echogenicity of the liver is characteristic of primary hepatocellular disease, possibly due to hepatic steatosis and further limits visualization. GALLBLADDER: Surgically absent. COMMON BILE DUCT: Normal in caliber measuring 0.9 cm in diameter. RIGHT KIDNEY: No hydronephrosis. No renal calculi. Limited visualization. The kidney measures 10.7 cm in maximum dimension. LEFT KIDNEY: No hydronephrosis. No renal calculi. Limited visualization. The kidney measures 10.0 cm in maximum dimension. SPLEEN: Normal. The spleen measures 10.0 cm in maximum dimension. FREE FLUID: None. US/US abdomen complete IMPRESSION: Gallbladder is surgically absent. Diffuse increase in echogenicity of the liver is characteristic of primary hepatocellular disease, possibly due to hepatic steatosis and further limits visualization.
== END 2023-04-10 10:02 | disposition home or self-care (01) ==
LOC: HO.US 10:01
PROVIDERS: PCP Internal Medicine Medical Oncology; Visit Provider Internal Medicine Medical Oncology
DX: R10.13 Epigastric pain (principal)
CPT/HCPCS: 76700

== ENCOUNTER 2023-04-30 09:19 | Day surgery (SDC) | payer MEDICARE, SELFPAY ==
--- NOTE | 2023-04-29 10:16 | P.CONAN_ITS ---
Documented by User: Onelia Jose NP 04/29/23 10:31 HPI - Anesthesia Eval Consult details Narrative: 62yo F for Upper Endoscopy Hx PAF, no longer on OAC CAD s/p MALU 05/2021 Follows [facility]. Last seen 05/2022. Pt denies CP/SOB on T/C 04/29/23 PMFSH Active Problems Active Problems: All Active Problems (Updated 04/10/23 @ 00:00 by Background Daemon) Generalized anxiety disorder (Acute) Major depression, recurrent, chronic (Acute) CAD (coronary artery disease) (Acute) Visit for wound check (Acute) SOB (shortness of breath) on exertion (Acute) Hyperlipidemia (Acute) HTN (hypertension) (Acute) Paroxysmal atrial fibrillation (Acute) Chest pressure (Acute) Past Medical History Medical History (Updated 04/10/23 @ 00:00 by Background Daemon) Bladder cancer CAD (coronary artery disease) Family history of premature coronary artery disease Generalized anxiety disorder HTN (hypertension) Hyperlipidemia Major depression, recurrent, chronic Paroxysmal atrial fibrillation Family History Family History Father CAD (coronary artery disease) Mother HTN (hypertension) Cancer Brother HTN (hypertension) Sister HTN (hypertension) Paternal Grandmother Stroke Paternal Grandfather CAD (coronary artery disease) Paternal Uncle CAD (coronary artery disease) Surgical History Surgical History History of hip surgery S/P cardiac cath Social History Social History Alcohol intake: never Patient Tobacco Use Status: Never used Tobacco Use of substances other than those prescribed or required for medical reasons: Yes Substance Use Type: Marijuana Substance Use Frequency: Occasionally Are you DNR?: No Advance Directives: No Advance Directives Information Provided: Yes Patient : No (hysterectomy) Meds Allergies Allergy/AdvReac Type Severity Reaction Status Date / Time amoxicillin [Amoxicillin] Allergy Mild RASH Verified 06/06/21 13:38 cefaclor [From Ceclor] Allergy Mild RASH Verified 06/06/21 13:38 Sulfa (Sulfonamide Allergy Mild RASH Verified 06/06/21 13:38 Antibiotics) HIVES, rash [Sulfa (Sulfonamides)] doxycycline [DOXYCYCLINE] Allergy Unknown ULCER Verified 06/06/21 13:38 Home Medications Medication Instructions Recorded Confirmed Last Taken Type meloxicam 15 mg tablet 15 mg PO DAILY 05/09/21 12/25/22 Unknown History olmesartan 40 mg tablet 40 mg PO DAILY 05/09/21 12/25/22 Unknown History Exam Exam Date and Time: April 29, 2023 1016 Pertinent Lab Results Pertinent Lab Results: Laboratory Tests 04/09/23 04/09/23 08:42 08:42 WBC 5.6 Hgb 14.0 Hct 42.2 Plt Count 180 D Sodium 141 Potassium 4.8 D Chloride 108 Carbon Dioxide 27 BUN 13 Creatinine 0.99 Narrative Narrative: EKG 03/2023 Vent. Rate : 057 BPM ? ? Atrial Rate : 057 BPM ?? P-R Int : 176 ms? QRS Dur : 084 ms ? ? QT Int : 430 ms ? ? ? P-R-T Axes : 076 -03 032 degrees ?? QTc Int : 418 ms ? Sinus bradycardia Otherwise normal ECG When compared with ECG of 04-MAY-2021 12:04, Sinus rhythm has replaced Atrial fibrillation Assessment and Plan Assessment Anesthesia Assessment: Chart Reviewed Documented by User: Renato Menjivar MD 04/30/23 11:12 [facility] Past Medical History Medical History (Updated 04/10/23 @ 00:00 by Analy Callaway) Bladder cancer CAD (coronary artery disease) Family history of premature coronary artery disease Generalized anxiety disorder HTN (hypertension) Hyperlipidemia Major depression, recurrent, chronic Paroxysmal atrial fibrillation Family History Family History Father CAD (coronary artery disease) Mother HTN (hypertension) Cancer Brother HTN (hypertension) Sister HTN (hypertension) Paternal Grandmother Stroke Paternal Grandfather CAD (coronary artery disease) Paternal Uncle CAD (coronary artery disease) Family history of problems with anesthesia: No Surgical History Surgical History History of hip surgery S/P cardiac cath History of Problems with Anesthesia: Yes (PONV) Social History Social History Alcohol intake: never Patient Tobacco Use Status: Never used Tobacco Use of substances other than those prescribed or required for medical reasons: Yes Substance Use Type: Marijuana Substance Use Frequency: Occasionally Are you DNR?: No Advance Directives: No Advance Directives Information Provided: Yes Patient : No (hysterectomy) Meds Allergies Allergy/AdvReac Type Severity Reaction Status Date / Time amoxicillin [Amoxicillin] Allergy Mild RASH Verified 06/06/21 13:38 cefaclor [From Ceclor] Allergy Mild RASH Verified 06/06/21 13:38 Sulfa (Sulfonamide Allergy Mild RASH Verified 06/06/21 13:38 Antibiotics) HIVES, rash [Sulfa (Sulfonamides)] doxycycline [DOXYCYCLINE] Allergy Unknown ULCER Verified 06/06/21 13:38 Home Medications Medication Instructions Recorded Confirmed Last Taken Type meloxicam 15 mg tablet 15 mg PO DAILY 05/09/21 12/25/22 Unknown History olmesartan 40 mg tablet 40 mg PO DAILY 05/09/21 12/25/22 Unknown History Exam Airway Mallampati Class: II TM Dist: <=3cm Neck ROM: Full (Full extension can cause bilat shoulder soreness, but no 'acute' radicular sx from her description.) Loose/Missing/Broken Teeth: No Heart: ok Lungs: ok Assessment and Plan Assessment Anesthesia Assessment: Anesthesia Plan Discussed Final Anesthetic Review Family History of Problems with Anesthesia: No History of Problems with Anesthesia: Yes (PONV) NPO: Yes ASA Class: III Final Preanesthetic Review: No Changes in Pt Med Stat, Meds/Allgs Chart Reviewed, Consent Obtained/Reviewed and Anes Risks/Benef Reviewed Patient Risk: Intermediate Procedure Risk: Intermediate Anesthetic Plan Anesthetic Plan: MAC: and Other Disposition: Standard PACU
[2023-04-30 10:12] VITALS: BP 140/74; PULSE 56; RESP 16; TEMP 36.7; O2SAT 97; BMI 29.1
[2023-04-30] MEDS: Lactated Ringers 1,000 ML 100 ML IVCONT (10:20)
--- NOTE | 2023-04-30 12:25 | PC.NURSE ---
Last dose of ASA 81 mg was yesterday
[2023-04-30 12:55] VITALS: BP 133/69; PULSE 50; RESP 18; TEMP 36.3; O2SAT 96
--- NOTE | 2023-04-30 12:57 | P.BOP_ITS ---
Brief Operative Note Date of Service: 04/30/23 Pre-op diagnosis: Abd pain Post-op diagnosis: other (Small hiatal hernia, mild gastritis) Procedure: EGD with biopsies Surgeon: Zackery Mehta Anesthesia: MAC Was an Fisher Sponge Hooking used for this Procedure?: No Estimated blood loss (mL): 2.0 Pathology: other (A. Descending duodenum B. Gastric antrum C. EG Junction at 36cm) Condition: stable Disposition: PACU
[2023-04-30 13:10] VITALS: BP 146/79; PULSE 46; RESP 18; O2SAT 96
--- NOTE | 2023-04-30 13:16 | OP_ITS ---
DATE OF SERVICE: 04/30/2023 SURGEON: Zackery Mehta MD INDICATIONS: The patient presents for evaluation of abdominal pain. Full consent has been obtained from her for this, including risks of bleeding and perforation. PREOPERATIVE DIAGNOSIS: Abdominal pain. POSTOPERATIVE DIAGNOSIS: PROCEDURE PERFORMED: Esophagogastroduodenoscopy with biopsies. ESTIMATED BLOOD LOSS: COMPLICATIONS: ANESTHESIA: Monitored anesthesia care. ASSISTANTS: SPECIMENS: POSTOPERATIVE DIAGNOSES: Abdominal pain, mild gastritis, small hiatal hernia, minimal changes of gastroesophageal reflux. DESCRIPTION OF PROCEDURE: The patient was placed in the left lateral decubitus position. The Olympus video gastroscope was passed in the posterior oropharynx and upper esophagus under direct vision. The scope was passed slowly to the distal esophagus. The gastroesophageal junction appeared at 36 cm. There was some slight irregularity consistent with reflux but no esophagitis nor Gomez's mucosa. There was a relatively minimal hiatal hernia. The scope was advanced to the pylorus, and the duodenum was cannulated to the descending portion. The duodenum including the bulb appeared normal without mass or ulceration. Biopsies were obtained from the 2nd and 3rd portions of the duodenum. The scope was withdrawn back to the stomach. The gastric antrum had some changes of erythema, but no erosions or ulceration. There was good peristalsis. Biopsies were obtained from the antrum. The scope was retroflexed visualizing the proximal stomach carefully, which appeared normal, without any sign of mass or ulceration. The scope was straightened and withdrawn back into the esophagus. Biopsies were obtained at the EG junction at 36 cm. Proximal to this the esophageal mucosa appeared normal. The scope was withdrawn from the patient. She tolerated the procedure well and was returned to the recovery area in stable condition. IMPRESSION: 1. Minimal hiatal hernia and gastroesophageal reflux. 2. Mild changes of gastritis. 3. Rule out celiac disease. PLAN: The results of the biopsies will be checked. She has been using Dexilant for some time now without much improvement. Imaging studies with ultrasound and upper GI series have been nonrevealing as well. She is already status post a cholecystectomy. She has a prescription for hyoscyamine and has tried that once, but without any improvement. I shall have her increase the Dexilant to twice a day for a couple of weeks to see if that makes a difference for her. I shall also give her a trial of Carafate and Zofran. I did advise her to continue the hyoscyamine as well. I will plan to see her in followup. She may need further imaging with a CT scan if the abdominal pain persists. She has had previous colonoscopies so I do not think a colonoscopy would be helpful, but we may need to consider that as well. She was advised to resume her aspirin tomorrow and to avoid all NSAIDs long-term if possible. This has been discussed with her . MD ASPEN Zendejas/HOLDEN / [id number] MTDD
[2023-04-30 13:22] VITALS: BP 131/77; PULSE 48; RESP 16; TEMP 36.1; O2SAT 98
== END 2023-04-30 13:53 | disposition home or self-care (01) ==
PROVIDERS: PCP Internal Medicine Medical Oncology; Visit Provider Internal Medicine
PROC: 0DJ08ZZ Inspection of Upper Intestinal Tract, Via Natural or Artificial Opening Endoscopic (ICD-10-PCS; CPT 43235; principal; 2023-04-30 10:30)
DX: K29.50 Unspecified chronic gastritis without bleeding (principal); K44.9 Diaphragmatic hernia without obstruction or gangrene; K21.9 Gastro-esophageal reflux disease without esophagitis; K58.8 Other irritable bowel syndrome; I10 Essential (primary) hypertension; I48.91 Unspecified atrial fibrillation; I25.10 Atherosclerotic heart disease of native coronary artery without angina pectoris; Z95.5 Presence of coronary angioplasty implant and graft; Z85.51 Personal history of malignant neoplasm of bladder; Z79.899 Other long term (current) drug therapy; Z79.82 Long term (current) use of aspirin; Z90.49 Acquired absence of other specified parts of digestive tract
CPT/HCPCS: 43239; 88305; 88342; J3010

== ENCOUNTER 2023-05-13 11:49 | Outpatient (REF) | payer MEDICARE, SELFPAY ==
--- NOTE | ~2023-05-13 | CT_ITS ---
EXAMINATION: CT ABDOMEN AND PELVIS WITH CONTRAST CLINICAL INFORMATION: Epigastric pain COMPARISON: None available. TECHNIQUE: Multidetector volumetric images were obtained from the superior aspect of the liver through the pubic symphysis following administration 85 mL of Omnipaque 350 intravenous contrast. Sagittal and coronal reformatted images were obtained on the technologist's workstation. Oral contrast: No This CT examination was performed using dose optimization techniques as appropriate, variously including the following: *Automated exposure control *Adjustment of mA and/or kV according to patient size (this includes techniques or standardized protocols for targeted exams where dose is matched to indication/reason for exam; i.e. 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 Moderately severe fecal retention. Left total hip replacement Mild lingular atelectasis. LUNG BASES: Nonenlarged heart. No pericardial effusion. LIVER, GALLBLADDER, AND BILIARY TREE: Liver is normal in size, shape and attenuation. There is mild to moderate intrahepatic biliary ductal dilatation. Common bile duct measures 9 mm with abrupt termination distally, coronal 7: 35. PANCREAS: Pancreatic duct is visualized measuring 3 mm. SPLEEN: Unremarkable. ADRENAL GLANDS: Unremarkable. KIDNEYS AND URETERS: The kidneys are normal in size, shape, and attenuation. No hydronephrosis, hydroureter, or calculi seen. No perinephric stranding. BLADDER: Partially obscured by left hip artifact. GASTROINTESTINAL TRACT: Stomach is decompressed. Bowel pattern is nonobstructive. Unremarkable terminal ileum and appendix. Moderately severe fecal retention. ABDOMINAL WALL: No significant hernia is appreciated. LYMPH NODES: Normal. VASCULAR: Unremarkable. PELVIC VISCERA: Imaging of the pelvis degraded by left total hip replacement. Left hemipelvic phlebolith. OSSEOUS STRUCTURES: No suspicious osseous lesions. CT/CT abdomen pelvis w IV con IMPRESSION: Intra, extrahepatic biliary ductal and pancreatic dilatation with suspicion of distal common bile partially obstructing process/mass. MRCP/ERCP recommended. Moderately severe fecal retention. Fleischner guidelines were followed.
[2023-05-13] MEDS: Barium Sulfate Oral (Vanilla) 450 ML ORAL.SUSP 900 ML PO (14:40)
[2023-05-13] MEDS: iohexoL 350 MG/ML 100 ML INFUS..BTL IV (14:41)
[2023-05-14 08:26] LABS: Creatinine POC 0.7 mg/dL (0.5-1.4); GFR POC 60
== END 2023-05-13 11:50 | disposition home or self-care (01) ==
LOC: HO.CT 11:49
PROVIDERS: PCP Internal Medicine Medical Oncology; Visit Provider Internal Medicine Medical Oncology
DX: R10.13 Epigastric pain (principal)
CPT/HCPCS: 74177; 82565; Q9967

== ENCOUNTER 2023-05-14 15:54 | Outpatient (REF) | payer MEDICARE, SELFPAY ==
[2023-05-14 16:14] LABS: MANUAL DIFF FLAG NO
[2023-05-14 16:31] LABS: Basophils Percent Auto 0.3 % (0-2); Eosinophils Absolute Auto 0.1 X10*3/uL (0.0-0.4); Eosinophils Percent Auto 1.3 % (0-4); Hematocrit 42.4 % (37.0-47.0); Imm Gran Abs Auto 0.01 X10*3/uL (0.00-0.03); Imm Gran Pct Auto 0.2 % (0.0-0.4); Lymphocytes Absolute Auto 1.2 X10*3/uL (1.2-4.9); Lymphocytes Percent Auto 19.6 % (20-40); Mean Corpuscular Hemoglobin 29.5 pg (27.0-33.0); Mean Corpuscular Volume 89.3 fL (80.0-98.0); Mean Platelet Volume 10.1 fL (9.4-12.3); Monocytes Absolute Auto 0.4 X10*3/uL (0.1-1.2); Monocytes Percent Auto 6.2 % (2-11); Neutrophils Absolute Auto 4.3 x10*3/uL (2.0-8.3); Neutrophils Percent Auto 72.4 % (45-73); Platelet Count 209 X10*3/uL (160-400); Red Blood Count 4.75 X10*6/uL (4.20-5.50); Red Cell Distribution Width 12.9 % (11.0-16.0)
[2023-05-14 17:17] LABS: Alanine Aminotransferase 79 U/L (0-31); Albumin Level 4.7 g/dL (3.5-5.0); Alkaline Phosphatase 62 U/L (39-117); Amylase 75 U/L (28-100); Aspartate Amino Transferase 50 U/L (5-31); Bilirubin Direct 0.5 mg/dL (0.0-0.5); Bilirubin Total 1.6 mg/dL (0.0-1.0); Blood Urea Nitrogen 12 mg/dL (9-16); Estimated Glomerular Filt Rate 60; Lipase 23 U/L (8-78); Total Protein 7.4 g/dL (6.5-8.0)
[2023-05-16 08:59] LABS: Carbohydrate Antigen 19-9 19 U/mL (<34)
== END 2023-05-14 15:55 | disposition home or self-care (01) ==
LOC: HO.LAB 15:54
PROVIDERS: PCP Internal Medicine Medical Oncology; Visit Provider Internal Medicine
DX: R10.84 Generalized abdominal pain (principal); R93.2 Abnormal findings on diagnostic imaging of liver and biliary tract
CPT/HCPCS: 36415; 80076; 82150; 82565; 83690; 84520; 85025; 86301

== ENCOUNTER → 2023-05-22 12:11 | Day surgery (SDC) | payer MEDICARE, SELFPAY ==
[2023-05-22] VITALS (17 sets, daily range): BP systolic 118–159; BP diastolic 61–100; PULSE 45–81; RESP 12–18; TEMP 36.2; O2SAT 95–100; BMI 28.6
--- NOTE | ~2023-05-22 | FL_ITS ---
EXAMINATION: XR FLUOROSCOPY WITH IMAGES CLINICAL INFORMATION: ERCP COMPARISON: None available. TECHNIQUE: Fluoroscopy Supervised By: Dr. Zackery Mehta. Fluoroscopy Time: 325.1 seconds. Cumulative Dose: 85.87 mGy. Images: 48. FINDINGS: Enteric tube noted. Wire cannulation of the common bile duct with contrast injection. Dilated common duct and intrahepatic ducts centrally. There are initially some filling defects seen which are not seen on final images.. FL/FL guidance in OR IMPRESSION: Fluoroscopic guidance for ERCP. Please refer to procedural report for further information..
[2023-05-22 13:08] LABS: INTERNATIONAL NORM RATIO 0.9 (0.9-1.1); Prothrombin Time 11.4 SEC (11.1-13.3)
--- NOTE | 2023-05-22 13:18 | HO.ANESPROP2 ---
HPI - Anesthesia Eval Consult details Narrative: for ERCP PMFSH Active Problems Active Problems: All Active Problems (Updated 04/10/23 @ 00:00 by Background Daemon) Generalized anxiety disorder (Acute) Major depression, recurrent, chronic (Acute) CAD (coronary artery disease) (Acute) Visit for wound check (Acute) SOB (shortness of breath) on exertion (Acute) Hyperlipidemia (Acute) HTN (hypertension) (Acute) Paroxysmal atrial fibrillation (Acute) Chest pressure (Acute) Past Medical History Medical History (Updated 04/10/23 @ 00:00 by Background Daemon) Generalized anxiety disorder Major depression, recurrent, chronic CAD (coronary artery disease) Hyperlipidemia Bladder cancer Family history of premature coronary artery disease HTN (hypertension) Paroxysmal atrial fibrillation Family History Family History Father CAD (coronary artery disease) Mother HTN (hypertension) Cancer Brother HTN (hypertension) Sister HTN (hypertension) Paternal Grandmother Stroke Paternal Grandfather CAD (coronary artery disease) Paternal Uncle CAD (coronary artery disease) Family history of problems with anesthesia: No Surgical History Surgical History S/P cardiac cath History of hip surgery History of Problems with Anesthesia: Yes (PONV) Social History Social History Alcohol intake: never Patient Tobacco Use Status: Never used Tobacco Use of substances other than those prescribed or required for medical reasons: Yes Substance Use Type: Marijuana Advance Directives: No Advance Directives Information Provided: Yes Meds Allergies Allergy/AdvReac Type Severity Reaction Status Date / Time amoxicillin [Amoxicillin] Allergy Mild RASH Verified 06/06/21 13:38 cefaclor [From Ceclor] Allergy Mild RASH Verified 06/06/21 13:38 Sulfa (Sulfonamide Allergy Mild RASH Verified 06/06/21 13:38 Antibiotics) HIVES, rash [Sulfa (Sulfonamides)] doxycycline [DOXYCYCLINE] Allergy Unknown ULCER Verified 06/06/21 13:38 Active Medications: Current Medications Levofloxacin (Levaquin) 500 mg in 100 mls @ 100 mls/hr IV PREOP ONE Stop: 05/22/23 13:17 Home Medications Medication Instructions Recorded Confirmed Last Taken Type meloxicam 15 mg tablet 15 mg PO DAILY 05/09/21 12/25/22 Unknown History olmesartan 40 mg tablet 40 mg PO DAILY 05/09/21 05/22/23 05/22/23 10:00 History Exam Exam Date and Time: May 22, 2023 1318 Height,Weight and Vital Signs: Height 5 ft 5 in Weight 78.018 kg Pertinent Lab Results Pertinent Lab Results: Laboratory Tests 05/22/23 12:50 PT 11.4 INR 0.9 Airway Mallampati Class: II TM Dist: <=3cm Neck ROM: Full Loose/Missing/Broken Teeth: No Heart: ok Lungs: ok Assessment and Plan Assessment Anesthesia Assessment: Anesthesia Plan Discussed and Chart Reviewed Final Anesthetic Review Family History of Problems with Anesthesia: No History of Problems with Anesthesia: Yes (PONV) NPO: Yes ASA Class: II Final Preanesthetic Review: No Changes in Pt Med Stat, Meds/Allgs Chart Reviewed, Consent Obtained/Reviewed and Anes Risks/Benef Reviewed Patient Risk: Low Procedure Risk: Intermediate Anesthetic Plan Anesthetic Plan: GA and Agree w/ Assess. and Plan Disposition: Standard PACU
[2023-05-22 13:21] LABS: Alanine Aminotransferase 31 U/L (0-31); Albumin Level 4.2 g/dL (3.5-5.0); Alkaline Phosphatase 63 U/L (39-117); Aspartate Amino Transferase 26 U/L (5-31); Bilirubin Direct 0.4 mg/dL (0.0-0.5); Bilirubin Total 1.1 mg/dL (0.0-1.0); Total Protein 6.8 g/dL (6.5-8.0)
--- NOTE | 2023-05-22 15:33 | PM.OP ---
Brief Operative Note Date of Service: 05/22/23 Pre-op diagnosis: RUQ abdominal pain, abnormal xrays of biliary tract Post-op diagnosis: other (Normal ERCP except for a diffusely dilated intrahepatic and extrahepatic biliary tract) Procedure: ERCP with sphincterotomy and Spyglass evaluation of bile duct Surgeon: Zackery Mehta Anesthesia: GETA Was an Floor Specialist used for this Procedure?: No Estimated blood loss (mL): 1.0 Pathology: none sent Disposition: PACU
[2023-05-22] MEDS: ondansetron HCL 4 MG/2 ML VIAL IVPUSH (15:35)
[2023-05-22] MEDS: fentaNYL citrate/PF 100 MCG/2 ML VIAL 25 MCG IVPUSH ×2 (15:47→15:55)
[2023-05-22] MEDS: droPERidol 5 MG/2 ML VIAL 0.625 MG IVPUSH (18:29)
--- NOTE | 2023-05-22 19:04 | PC.NURSE ---
rn to rn report given to ED rnraimundo. per rn request to hold patient for 30 min.
--- NOTE | 2023-05-22 22:09 | OP_ITS ---
DATE OF SERVICE: 05/22/2023 SURGEON: Zackery Mehta MD INDICATIONS: The patient presents for evaluation of right upper quadrant pain and abnormal imaging of the biliary tract. Full consent has been obtained from her for this, including risks of bleeding, perforation, cholangitis, and pancreatitis. PREOPERATIVE DIAGNOSIS: Right upper quadrant abdominal pain and abnormal imaging of biliary tract. POSTOPERATIVE DIAGNOSIS: Right upper quadrant abdominal pain and abnormal imaging of biliary tract. Normal cholangiograms other than a diffusely dilated intrahepatic and extrahepatic bile duct, without any sign of stones, tumor, nor stricture. PROCEDURE PERFORMED: Endoscopic retrograde cholangiopancreatography with sphincterotomy and evaluation of biliary tract with the SpyGlass. ESTIMATED BLOOD LOSS: COMPLICATIONS: ANESTHESIA: General anesthesia and glucagon 0.5 mg IV x 1 dose. ASSISTANTS: SPECIMENS: DESCRIPTION OF PROCEDURE: The patient was placed in the semiprone position. The [employer] video duodenoscope was passed in the posterior oropharynx and upper esophagus. The scope entered the stomach and was advanced to the pylorus. The duodenum was cannulated to the descending portion. The region of the major papilla was visualized. The major papilla appeared normal with good flow of bile noted coming from it. Using a [employer] triple lumen sphincterotome, a selective cannulation of the biliary tree was obtained over the straight guidewire on the 1st attempt. At that point, cholangiograms were obtained with good filling of both the intrahepatic and extrahepatic bile ducts. The entire biliary tract was diffusely dilated. Once enough dye was injected to obtain good visualization of entire biliary tract, including the very distal part, there did not appear to be any definitive filling defects nor any sign of stricture. At times, there did appear to be some irregularity of the distal bile duct. However, once there was adequate opacification of the biliary tree with contrast the distal bile duct appeared to have a smooth tapering anatomy. However, given her ongoing issues with abdominal pain, minimally elevated LFTs, and the previous abnormal imaging of the biliary tract, I did perform an approximately 8-10 mm sphincterotomy over the guidewire without any immediate complication. There was excellent flow of bile and dye noted at that point. At that point, I used a 12 mm and 15 mm balloon catheter to obtain further occlusion cholangiograms. Again, there did not appear to be any definitive filling defects. The duct was swept numerous times with both balloons and no stones, gravel, nor sludge were seen coming from the bile duct, although the balloons themselves pulled easily into the duodenum. On each occasion, there was excellent drainage of bile and dye noted into the duodenum along with a normal smooth tapering appearance to the very distal common bile duct. I then used a 2.5 cm 4-wire basket to sweep the duct as well and obtain further cholangiograms. Again, there was no evidence of any filling defects nor stones. There were no stones nor sludge pulled into the duodenum. Final cholangiograms did not reveal any sign of a distal bile duct abnormality. There was a smooth tapering of the bile duct and excellent drainage of bile and dye noted. Given her abnormal imaging of the bile duct on her CT and MRCP, I did use a SpyGlass to evaluate the bile duct up to the common hepatic duct and bifurcation of the left and right hepatic ducts. The orifices of the left and right hepatic ducts were clearly patent and without any sign of stone or mass. I felt that I had obtained good visualization of the remainder of the bile duct and I did not visualize any sign of stones nor tumor. The SpyGlass was removed from the patient. Again, there was excellent drainage of all dye from the extrahepatic bile duct with air cholangiograms noted. At that point, the procedure was terminated. Of note, the pancreas was not injected nor cannulated. The scope was withdrawn from the patient. She tolerated the procedure well and was returned to the recovery area in stable condition. IMPRESSION: Basically normal endoscopic retrograde cholangiopancreatography other than diffuse dilatation of the intrahepatic and extrahepatic bile ducts. No sign of any stones nor tumor judging fluoroscopically nor endoscopically with SpyGlass. PLAN: The patient will be observed in recovery for at least 4 hours. If stable, she could go home tonight. She was instructed to resume her 81 mg aspirin in 72 hours due to underlying coronary artery disease. She was advised to stay off all NSAIDs, including her meloxicam, for at least 2 weeks. She was advised to continue her Dexilant. She was advised to call me next week to let me know how she is doing, but to obviously call sooner as needed. At this point, given today's basically negative exam, one possibility is that perhaps she had sphincter of Oddi spasm causing her pain. Hopefully, the sphincterotomy will help that, if indeed that was the case. If she continues to have problems, then depending upon the clinical situation, we may want to have her undergo further evaluation with an endoscopic ultrasound of the distal bile duct and/or pancreas, given the original concerns on her CT scan and MRI. This has all been discussed with her and daughter. MD ASPEN Zendejas/HOLDEN / [id number] MTDD
== END | disposition home or self-care (01) ==
PROVIDERS: PCP Internal Medicine Medical Oncology; Visit Provider Internal Medicine
PROC: (CPT 43260; principal; 2023-05-22 13:30)
DX: K83.8 Other specified diseases of biliary tract (principal); R93.2 Abnormal findings on diagnostic imaging of liver and biliary tract; R10.11 Right upper quadrant pain; I10 Essential (primary) hypertension; E78.5 Hyperlipidemia, unspecified; I48.0 Paroxysmal atrial fibrillation; Z79.899 Other long term (current) drug therapy
CPT/HCPCS: 43262; 43273; 36415; 80076; 85610; C1887; J1610; J1790; J1956; J2250; J2405; J2550; J3010; Q9967

== ENCOUNTER 2023-05-22 19:31 | Observation (INO) | payer MEDICARE, SELFPAY ==
--- NOTE | ~2023-05-22 | MR_ITS ---
EXAMINATION: MR ABDOMEN WITHOUT CONTRAST CLINICAL INFORMATION: Right upper quadrant pain, status post ERCP. COMPARISON: Abdomen CT from 11/21/2016, 05/13/2023 and 05/23/2023. TECHNIQUE: MR imaging of the abdomen is performed using standard sequences on a high-field magnet without intravenous contrast. The examination includes thick slab T2-weighted MRCP sequences. FINDINGS: LUNG BASES: Normal. No pulmonary consolidation or pleural effusion. LIVER: Liver has normal size, contour and parenchymal signal. No hepatic mass or abscess. No cirrhotic morphology or steatosis. Again noted is pneumobilia in the left lobe. No perihepatic fluid collection. GALLBLADDER AND BILIARY TREE: Prior cholecystectomy. Common bile duct is chronically mildly dilated. It measures up to 0.8 cm transverse diameter, unchanged compared to 11/21/2016. There is chronic mild dilatation of central intrahepatic ducts. The common hepatic duct is not optimally evaluated due to susceptibility artifact created by the cholecystectomy clips. The visualized common duct has normal smooth contour. No MR imaging evidence of choledocholithiasis. PANCREAS: No edema, pancreatic ductal dilatation or mass. SPLEEN: Normal. ADRENAL GLANDS: Normal. KIDNEYS: Kidneys are normal in size. No suspicious renal lesion. No hydronephrosis or perinephric edema. BOWEL AND PERITONEUM: Stomach is unremarkable. No dilated loops of bowel. No bowel wall thickening or mesenteric fat stranding. No abdominal free fluid. VASCULATURE: Atherosclerotic abdominal aorta is normal in caliber. Inferior vena cava is unremarkable. LYMPH NODES: No pathologic sized lymph nodes in the abdomen. SKELETAL: Unremarkable. MR/MR MRCP IMPRESSION: No acute imaging abnormalities in the abdomen. Again noted is pneumobilia, status post recent ERCP. There is no perihepatic fluid collection. Common bile duct is chronically, mildly dilated and has normal smooth contour. There is no MR imaging evidence of choledocholithiasis.
--- NOTE | ~2023-05-22 | CT_ITS ---
EXAMINATION: CT ABDOMEN AND PELVIS WITH CONTRAST CLINICAL INFORMATION: Pain status post ERCP. COMPARISON: 05/13/2023 TECHNIQUE: Multidetector volumetric images were obtained from the superior aspect of the liver through the pubic symphysis following administration 85 mL of Omnipaque 350 intravenous contrast. Sagittal and coronal reformatted images were obtained on the technologist's workstation. Oral contrast: No This CT examination was performed using dose optimization techniques as appropriate, variously including the following: *Automated exposure control *Adjustment of mA and/or kV according to patient size (this includes techniques or standardized protocols for targeted exams where dose is matched to indication/reason for exam; i.e. extremities or head) *Use of iterative reconstruction technique DLP: 69 mGy-cm FINDINGS: LUNG BASES: Minimal dependent atelectasis. Heart is normal in size. LIVER, GALLBLADDER, AND BILIARY TREE: The liver is normal in size, shape, and attenuation. No focal hepatic lesion or biliary ductal dilatation is present. Gallbladder is surgically absent. Pneumobilia is consistent with ERCP with sphincterotomy. Mild prominence of the common bile duct (8 mm in diameter) is related to prior cholecystectomy. PANCREAS: Pancreas appears normal without ductal dilatation or calcifications. No appreciable pancreatic edema or surrounding stranding. No focal lesions. SPLEEN: Unremarkable. ADRENAL GLANDS: Unremarkable. KIDNEYS AND URETERS: The kidneys are normal in size, shape, and attenuation. No hydronephrosis, hydroureter, or calculi seen. No perinephric stranding. BLADDER: Unremarkable. GASTROINTESTINAL TRACT: The small and large bowel are unremarkable. The appendix is unremarkable. No intraperitoneal free fluid or free air. ABDOMINAL WALL: No significant hernia is appreciated. LYMPH NODES: Normal. VASCULAR: Calcific atherosclerosis is present in the abdominal aorta and iliac arteries. No aneurysmal dilatation. PELVIC VISCERA: Uterus is now well-seen, likely surgically absent. No appreciable adnexal lesions. OSSEOUS STRUCTURES: Bones are osteopenic. No acute fracture or malalignment. Status post left total hip arthroplasty without surrounding findings of a complication. Mild osteoarthritis in the right hip. CT/CT abdomen pelvis w IV con IMPRESSION: 1. No acute abnormalities are identified in the abdomen and pelvis. 2. Pneumobilia, consistent with prior ERCP with sphincterotomy. 3. Normal appearance of the pancreas. Fleischner guidelines were followed.
[2023-05-22 19:49] VITALS: BP 143/71; PULSE 60; RESP 18; TEMP 36.8; O2SAT 96; BMI 28.6
--- NOTE | 2023-05-22 20:17 | ED.NAVMDI ---
HPI - Nausea/Vomiting/Diarrhea General Chief complaint: Nausea/Vomiting/Diarrhea Stated complaint: n/v Time Seen by Provider: 05/22/23 19:57 Source: RN notes reviewed Mode of arrival: ambulatory Limitations: no limitations History of Present Illness HPI Narrative: This is a 62-year-old female, with a past medical history of CAD, bladder cancer in remission, choecystectomy, HTN, HLD, proximal atrial fibrillation, anxiety/depression, presenting to the emergency department from PACU with complaints of intractable nausea and vomiting status post ERCP which was performed by Dr. Mehta this afternoon. Patient reports that upon awakening from the surgery she had worsening nausea and vomiting. Patient denies any chest pain or shortness of breath. No abdominal pain. No other complaints or concerns at this time. MD elicited complaint: nausea and vomiting Onset (ago): hour(s) Associated nausea: Yes Associated abdominal pain: No Location of pain: none Radiation: diffuse Exacerbating factors: eating Relieving factors: none Associated symptoms: denies other symptoms Related Data Home Medications Medication Instructions Recorded Confirmed meloxicam 15 mg tablet 15 mg PO DAILY 05/09/21 12/25/22 olmesartan 40 mg tablet 40 mg PO DAILY 05/09/21 05/22/23 Previous Rx's Medication Instructions Recorded amlodipine 2.5 mg tablet (Norvasc) 2.5 mg PO DAILY 90 days #90 tabs 11/19/21 rosuvastatin 20 mg tablet (Crestor) 20 mg PO DAILY 90 days #90 tabs 11/19/21 escitalopram oxalate 5 mg tablet 5 mg PO DAILY #90 tabs 12/25/22 (Lexapro) lamotrigine 150 mg tablet 150 mg PO Q12H #180 tabs 12/25/22 lorazepam 0.5 mg tablet 0.5 mg PO TID PRN anxiety #90 tabs 02/10/23 gabapentin 100 mg capsule 100 - 200 mg (1 - 2 x 100 mg) PO 02/25/23 BEDTIME #60 caps dicyclomine 10 mg capsule 10 mg PO TID #20 caps 04/09/23 magnesium citrate 150 ml PO BID PRN constipation 04/09/23 #296 mL metoclopramide HCl 5 mg tablet 5 mg PO TIDWMEAL #12 tabs 04/09/23 Allergies Allergy/AdvReac Type Severity Reaction Status Date / Time amoxicillin [Amoxicillin] Allergy Mild RASH Verified 05/22/23 19:59 cefaclor [From Ceclor] Allergy Mild RASH Verified 05/22/23 19:59 Sulfa (Sulfonamide Allergy Mild RASH Verified 05/22/23 19:59 Antibiotics) HIVES, rash [Sulfa (Sulfonamides)] doxycycline [DOXYCYCLINE] Allergy Unknown ULCER Verified 05/22/23 19:59 Review of Systems Review of Systems: Yes all other systems are reviewed and are negative Constitutional: Constitutional: Reports as per HPI Gastrointestinal: Gastrointestinal: Reports nausea PMFSH Past Medical History Attestation statement: The following information was validated with the patient. Medical History Generalized anxiety disorder Major depression, recurrent, chronic CAD (coronary artery disease) Hyperlipidemia Bladder cancer Family history of premature coronary artery disease HTN (hypertension) Paroxysmal atrial fibrillation Surgical History S/P cardiac cath History of hip surgery Family History Family History Father CAD (coronary artery disease) Mother HTN (hypertension) Cancer Brother HTN (hypertension) Sister HTN (hypertension) Paternal Grandmother Stroke Paternal Grandfather CAD (coronary artery disease) Paternal Uncle CAD (coronary artery disease) Social History Social History Alcohol intake: former Patient Tobacco Use Status: Never used Tobacco Smoked in Last 30 Days: No Use of substances other than those prescribed or required for medical reasons: No Substance Use Type: Marijuana Advance Directives: No Advance Directives Information Provided: No Patient : No Physical Exam Vital Signs: Vital Signs: Last Vital Signs Temp 98.4 F 05/23/23 00:34 Pulse 54 05/23/23 00:34 Resp 14 05/23/23 00:34 BP 160/73 H 05/23/23 00:34 Pulse Ox 97 05/23/23 00:34 O2 Del Method Room Air 05/23/23 00:34 BMI result Body Mass Index 28.6 Const: General: cooperative, comfortable and no acute distress Limitations: no limitations HEENT: Head: Yes normal to inspection, Yes normocephalic and Yes atraumatic Ears: hearing grossly normal bilaterally General nose exam: Normal external nose present Face and sinus: Yes normal facial exam Mouth: Normal oral and palatal mucosa present, oropharynx normal and moist mucous membranes Throat: Yes posterior oropharynx normal Eyes: General: appearance normal, both eyes and all related structures Eyelids: Yes eyelids normal Conjunctivae: conjunctivae normal Sclerae: sclerae normal Pupils: Equal, round and reactive pupils present EOM: EOMs intact bilaterally Neck: Neck: Yes normal visual inspection, Yes full ROM and Yes no lymphadenopathy Lymphatic: no lymphadenopathy noted Chest: Chest palpation & inspection: normal inspection of the chest Resp: Effort & Inspection: normal respiratory effort and able to speak in complete sentences Auscultation: clear to auscultation bilaterally, no crackles, no rales, no rhonchi and no wheezes Cardio: Rate: regular rate Rhythm: regular rhythm Heart sounds: S1 normal heart sound present and S2 normal heart sound present GI: Other: Abdomen is soft, with tenderness palpation the right upper quadrant. Inspection: Yes normal to inspection Skin: General skin exam: no rashes or lesions noted Trauma: no lacerations or abrasions Wounds: no wounds Neuro: General: moves all extremities Cranial nerves: Yes Equal, round and reactive pupils present Extrem: General: Yes normal to inspection Right upper extremity: normal to inspection Left upper extremity: normal to inspection Right lower extremity: normal to inspection Left lower extremity: normal to inspection Course Reevaluation(s) Reevaluation #1: Patient re-evaluated, feeling better after receiving Compazine and Benadryl. I will p.o. trial patient. Time: 21:29 Reevaluation #2: P.o. trial was performed, nausea has resolved however patient is reporting worsening right upper quadrant pain. Abdomen is soft, with right upper quadrant pain. Given worsening pain, I discussed this with GI surgeon, Dr. Mehta, who recommends getting CBC, chemistry, lipase. Given intractable pain I discussed possible admission. Dr. Mehta agrees to this pending labs. Time: 22:00 Reevaluation #3: Labs were obtained, no leukocytosis, stable H&H, AST ALT mildly elevated at 70 and 67 respectively. Lipase 16. Given intractable pain, will admit to the medical services for admission. Dr. Osuna recommends abdominal CT with IV contrast, order placed and is pending at this time. Admission orders also placed. Time: 23:44 Additional Reevaluation(s): CT abdomen showing pneumobilia, consistent with prior ERCP with sphincterotomy, normal appearance of the pancreas. No other acute abnormalities in the abdomen or pelvis. Patient admitted to hospital service. Medications Administered Discontinued Medications Generic Name Dose Route Start Last Admin Trade Name Debi PRN Reason Stop Dose Admin Diphenhydramine HCl 25 mg 05/22/23 20:14 05/22/23 20:22 Diphenhydramine Hcl 50 Mg/Ml Vial IVPUSH 05/22/23 20:15 25 mg ONCE ONE Administration Iohexol 85 ml 05/23/23 00:43 05/23/23 00:44 Iohexol 350 Mg/Ml 100 Ml Infus..Btl IV 05/23/23 00:44 85 ml ONCE ONE Administration Prochlorperazine Edisylate 10 mg 05/22/23 20:11 05/22/23 20:22 Prochlorperazine Edisylate 10 Mg/2 Ml Vial IVPUSH 05/22/23 20:12 10 mg ONCE ONE Administration Medical Decision Making Medical Decision Making [facility] Narrative: 62-year-old female presenting to the emergency department from PACU due to intractable nausea vomiting status post ERCP which was performed by Dr. Mehta. Patient had received Zofran 4 mg IV postop. She has been unable to tolerate p.o.. On arrival, patient mildly hypertensive at 143/71, all other vital signs within normal limits. Plan: IV fluids, Compazine, Benadryl, will re-evaluate Differential Diagnosis Differential Diagnoses: The differential diagnosis associated with the presentation includes Postoperative nausea and vomiting, intractable nausea, medication side effect Admission/Observation Consideration of admission/observation: Escalation of care including admission/observation considered Patient will be admitted for intractable abdominal pain Consult Healthcare Provider Management of the patient was discussed with: [employer] Dr. Mehta Lab Data [facility] Lab Attestation statement: I reviewed the patient's lab results. See course 05/22/23 22:20 05/22/23 22:20 Labs: Lab Results 05/22/23 Range/Units 22:20 WBC 6.6 (4.8-10.8) X10*3/uL RBC 3.86 L (4.20-5.50) X10*6/uL Hgb 11.7 L (12.0-16.0) g/dl Hct 34.8 L (37.0-47.0) % MCV 90.2 (80.0-98.0) fL MCH 30.3 (27.0-33.0) pg MCHC 33.6 (31.0-35.0) g/dl RDW 12.8 (11.0-16.0) % Plt Count 156 L D (160-400) X10*3/uL MPV 10.4 (9.4-12.3) fL Immature Gran % (Auto) 0.2 (0.0-0.4) % Neut % (Auto) 84.5 H (45-73) % Lymph % (Auto) 9.1 L (20-40) % Perkins % (Auto) 5.6 (2-11) % Eos % (Auto) 0.3 (0-4) % Baso % (Auto) 0.3 (0-2) % Lymph # (Auto) 0.6 L (1.2-4.9) X10*3/uL Perkins # (Auto) 0.4 (0.1-1.2) X10*3/uL Eos # (Auto) 0.0 (0.0-0.4) X10*3/uL Baso # (Auto) 0.0 (0.0-0.2) X10*3/uL Abs Immat Gran (auto) 0.01 (0.00-0.03) X10*3/uL Absolute Neuts (auto) 5.5 (2.0-8.3) x10*3/uL Absolute Nucleated RBC 0.000 (0.0-0.012) X10*3/uL Nucleated RBC % (auto) 0.0 (0.0-0.2) /100WBC Sodium 141 (135-145) mmol/L Potassium 4.0 (3.3-5.1) mmol/L Chloride 110 H (96-108) mmol/L Carbon Dioxide 24 (22-29) mmol/L Anion Gap 11 L (12-20) BUN 11 (9-16) mg/dL Creatinine 0.84 (0.5-1.4) mg/dL Estim Creat Clear Calc 72.6 Estimated GFR > 60 Random Glucose 121 H (60-115) mg/dL Calcium 8.8 D (8.4-10.2) mg/dL Total Bilirubin 1.0 (0.0-1.0) mg/dL Direct Bilirubin 0.4 (0.0-0.5) mg/dL AST 79 H (5-31) U/L ALT 67 H (0-31) U/L Alkaline Phosphatase 59 (39-117) U/L Total Protein 5.7 L (6.5-8.0) g/dL Albumin 3.5 (3.5-5.0) g/dL Lipase 16 (8-78) U/L Radiology Impression Discussion of test interpretation with radiology: I have reviewed the radiologist's reading. Radiologist Impression: EXAMINATION: CT ABDOMEN AND PELVIS WITH CONTRAST CLINICAL INFORMATION: Pain status post ERCP. COMPARISON: 05/13/2023 TECHNIQUE: Multidetector volumetric images were obtained from the superior aspect of the liver through the pubic symphysis following administration 85 mL of Omnipaque 350 intravenous contrast. Sagittal and coronal reformatted images were obtained on the technologist's workstation. Oral contrast: No This CT examination was performed using dose optimization techniques as appropriate, variously including the following: *Automated exposure control *Adjustment of mA and/or kV according to patient size (this includes techniques or standardized protocols for targeted exams where dose is matched to indication/reason for exam; i.e. extremities or head) *Use of iterative reconstruction technique DLP: 69 mGy-cm FINDINGS: LUNG BASES: Minimal dependent atelectasis. Heart is normal in size. LIVER, GALLBLADDER, AND BILIARY TREE: The liver is normal in size, shape, and attenuation. No focal hepatic lesion or biliary ductal dilatation is present. Gallbladder is surgically absent. Pneumobilia is consistent with ERCP with sphincterotomy. Mild prominence of the common bile duct (8 mm in diameter) is related to prior cholecystectomy. PANCREAS: Pancreas appears normal without ductal dilatation or calcifications. No appreciable pancreatic edema or surrounding stranding. No focal lesions. SPLEEN: Unremarkable. ADRENAL GLANDS: Unremarkable. KIDNEYS AND URETERS: The kidneys are normal in size, shape, and attenuation. No hydronephrosis, hydroureter, or calculi seen. No perinephric stranding. BLADDER: Unremarkable. GASTROINTESTINAL TRACT: The small and large bowel are unremarkable. The appendix is unremarkable. No intraperitoneal free fluid or free air. ABDOMINAL WALL: No significant hernia is appreciated. LYMPH NODES: Normal. VASCULAR: Calcific atherosclerosis is present in the abdominal aorta and iliac arteries. No aneurysmal dilatation. PELVIC VISCERA: Uterus is now well-seen, likely surgically absent. No appreciable adnexal lesions. OSSEOUS STRUCTURES: Bones are osteopenic. No acute fracture or malalignment. Status post left total hip arthroplasty without surrounding findings of a complication. Mild osteoarthritis in the right hip. CT/CT abdomen pelvis w IV con IMPRESSION: 1. No acute abnormalities are identified in the abdomen and pelvis. 2. Pneumobilia, consistent with prior ERCP with sphincterotomy. 3. Normal appearance of the pancreas. Fleischner guidelines were followed. External Record Review External record reviewed: Inpatient record, Office record, Outpatient record, Prior outpatient labs, Prior outpatient radiology, Primary care record and Outside ED record Discharge Plan Discharge Clinical Impression: Intractable abdominal pain, Postoperative abdominal pain Patient Disposition: Admitted As Inpatient
[2023-05-22] MEDS: diphenhydrAMINE HCL 50 MG/ML VIAL 25 MG IVPUSH (20:22)
[2023-05-22] MEDS: Prochlorperazine Edisylate 10 MG/2 ML VIAL IVPUSH (20:22)
[2023-05-22 22:01] VITALS: BP 152/70; PULSE 53; RESP 12; TEMP 36.6; O2SAT 95
[2023-05-22 22:25] LABS: MANUAL DIFF FLAG NO
[2023-05-22 22:27] LABS: Basophils Percent Auto 0.3 % (0-2); Eosinophils Percent Auto 0.3 % (0-4); Hematocrit 34.8 % (37.0-47.0); Hemoglobin 11.7 g/dl (12.0-16.0); Imm Gran Abs Auto 0.01 X10*3/uL (0.00-0.03); Imm Gran Pct Auto 0.2 % (0.0-0.4); Lymphocytes Absolute Auto 0.6 X10*3/uL (1.2-4.9); Lymphocytes Percent Auto 9.1 % (20-40); Mean Corpuscular HGB Conc 33.6 g/dl (31.0-35.0); Mean Corpuscular Hemoglobin 30.3 pg (27.0-33.0); Mean Corpuscular Volume 90.2 fL (80.0-98.0); Mean Platelet Volume 10.4 fL (9.4-12.3); Monocytes Absolute Auto 0.4 X10*3/uL (0.1-1.2); Monocytes Percent Auto 5.6 % (2-11); Neutrophils Absolute Auto 5.5 x10*3/uL (2.0-8.3); Neutrophils Percent Auto 84.5 % (45-73); Platelet Count 156 X10*3/uL (160-400); Red Blood Count 3.86 X10*6/uL (4.20-5.50); Red Cell Distribution Width 12.8 % (11.0-16.0); White Blood Count 6.6 X10*3/uL (4.8-10.8)
[2023-05-22 22:57] LABS: Alanine Aminotransferase 67 U/L (0-31); Albumin Level 3.5 g/dL (3.5-5.0); Alkaline Phosphatase 59 U/L (39-117); Anion Gap 11 (12-20); Aspartate Amino Transferase 79 U/L (5-31); Bilirubin Direct 0.4 mg/dL (0.0-0.5); Blood Urea Nitrogen 11 mg/dL (9-16); Calcium 8.8 mg/dL (8.4-10.2); Carbon Dioxide 24 mmol/L (22-29); Chloride 110 mmol/L (96-108); Creatinine Clr Calc Pharmacy 72.6; Estimated Glomerular Filt Rate > 60; Glucose Random 121 mg/dL (60-115); Lipase 16 U/L (8-78); Sodium 141 mmol/L (135-145); Total Protein 5.7 g/dL (6.5-8.0)
--- NOTE | 2023-05-22 22:58 | PC.NURSE ---
Pt brought down from PACU for ERCP, pt AOx4, speaking full sentences, pt reporting 8/10 constant RUQ abdominal pain that radiates to the back. Pt was able to tolerate some gingerale and crackers,but with some stomach irritation. Active bowel sounds heard in all 4 quadrants, pt reports tenderness to RUQ on palpation. Pt states she cannot lie on her back and is more comfortable on her side. Meds given per NOV.
[2023-05-23 00:34] VITALS: BP 160/73; PULSE 54; RESP 14; TEMP 36.9; O2SAT 97
[2023-05-23] MEDS: iohexoL 350 MG/ML 100 ML INFUS..BTL 85 ML IV (00:44)
--- NOTE | 2023-05-23 02:21 | PM.IMHP ---
History of Present Illness Date of Service: 05/23/23 Chief Complaint: abd pain This is a 62-year-old female with past medical history of CAD, HTN, HC LD, paroxysmal AFib not on anticoagulation comes into the hospital complaints of abdominal pain. Patient was seen by GI for ERCP as outpatient appointment due to right upper quadrant abdominal pain, abnormal x-ray of biliary tract concerning for possible stone. Patient underwent ERCP outpatient on 05/22, but could not go home if she developed worsening abdominal pain postprocedure as well as nausea and vomiting. She was then sent to the ED from postop for further evaluation. Patient reports that her abdominal pain is right upper quadrant, radiating to the back. Has nausea vomiting, no urinary symptoms and no lower extremity edema. No diarrhea or constipation. On arrival to the ED patient hemodynamically stable Labs are significant for WBC count of 6.6, hemoglobin of 11.7, hematocrit 34.8, labs otherwise unremarkable, lipase negative her LFTs show an AST of 79, ALT of [address] w contrast showed no acute abnormalities in the abdomen or pelvis, pneumobilia consistent with prior ERCP with sphincterotomy . Normal pancreas This was discussed with GI, plan for MRCP in the morning and possible repeat ERCP. Patient will be admitted for further management Review of Systems Review of Systems: Yes all other systems are reviewed and are negative [facility] Medical History Generalized anxiety disorder Major depression, recurrent, chronic CAD (coronary artery disease) Hyperlipidemia Bladder cancer Family history of premature coronary artery disease HTN (hypertension) Paroxysmal atrial fibrillation Family History Father CAD (coronary artery disease) Mother HTN (hypertension) Cancer Brother HTN (hypertension) Sister HTN (hypertension) Paternal Grandmother Stroke Paternal Grandfather CAD (coronary artery disease) Paternal Uncle CAD (coronary artery disease) Surgical History S/P cardiac cath History of hip surgery Social History Alcohol intake: former Patient Tobacco Use Status: Never used Tobacco Smoked in Last 30 Days: No Use of substances other than those prescribed or required for medical reasons: No Substance Use Type: Marijuana Advance Directives: No Advance Directives Information Provided: No Nutrition Risks: No Nutritional Risk Patient : No Meds Allergies Allergy/AdvReac Type Severity Reaction Status Date / Time amoxicillin [Amoxicillin] Allergy Mild RASH Verified 05/22/23 19:59 cefaclor [From Ceclor] Allergy Mild RASH Verified 05/22/23 19:59 Sulfa (Sulfonamide Allergy Mild RASH Verified 05/22/23 19:59 Antibiotics) HIVES, rash [Sulfa (Sulfonamides)] doxycycline [DOXYCYCLINE] Allergy Unknown ULCER Verified 05/22/23 19:59 Home Medications Medication Instructions Recorded Confirmed Last Taken Type meloxicam 15 mg tablet 15 mg PO DAILY 05/09/21 12/25/22 Unknown History olmesartan 40 mg tablet 40 mg PO DAILY 05/09/21 05/22/23 05/22/23 10:00 History Physical Exam Vital Signs and Narrative: Vital Signs: Last Vital Signs Temp 98.4 F 05/23/23 00:34 Pulse 54 05/23/23 00:34 Resp 14 05/23/23 00:34 BP 160/73 H 05/23/23 00:34 Pulse Ox 97 05/23/23 00:34 O2 Del Method Room Air 05/23/23 00:34 BMI result Body Mass Index 28.6 Const: General: cooperative and no acute distress Orientation/consciousness: patient oriented x3 Eyes: General: appearance normal, both eyes and all related structures Pupils: Equal, round and reactive pupils present Resp: Effort & Inspection: normal respiratory effort Auscultation: clear to auscultation bilaterally Cardio: Rate: regular rate Rhythm: regular rhythm GI: Other: Slight abdominal tenderness in the right upper quadrant, no rebound or guarding Palpation (GI): Soft to palpation Auscultation: normal bowel sounds Skin: General skin exam: no rashes or lesions noted Neuro: General: patient oriented x3 Cranial nerves: Yes Equal, round and reactive pupils present Cognition (Neuro): normal cognition Extrem: General: Yes normal to inspection and Yes no pedal edema Results Labs 05/23/23 05:41 05/23/23 05:41 Labs: Laboratory Results - last 24 hr 05/22/23 22:20 MCV 90.2 MCH 30.3 MCHC 33.6 RDW 12.8 Plt Count 156 L D MPV 10.4 Immature Gran % (Auto) 0.2 Neut % (Auto) 84.5 H Lymph % (Auto) 9.1 L [place] % (Auto) 5.6 Eos % (Auto) 0.3 Baso % (Auto) 0.3 Lymph # (Auto) 0.6 L [place] # (Auto) 0.4 Eos # (Auto) 0.0 Baso # (Auto) 0.0 Abs Immat Gran (auto) 0.01 Absolute Neuts (auto) 5.5 Absolute Nucleated RBC 0.000 Nucleated RBC % (auto) 0.0 Anion Gap 11 L Estim Creat Clear Calc 72.6 Estimated GFR > 60 Random Glucose 121 H Calcium 8.8 D Total Bilirubin 1.0 Direct Bilirubin 0.4 AST 79 H ALT 67 H Alkaline Phosphatase 59 Total Protein 5.7 L Albumin 3.5 Lipase 16 Imaging Radiologist's Impressions: Impressions Abdomen/Pelvis CT 05/23/23 00:20 IMPRESSION: 1. No acute abnormalities are identified in the abdomen and pelvis. 2. Pneumobilia, consistent with prior ERCP with sphincterotomy. 3. Normal appearance of the pancreas. Fleischner guidelines were followed. Assessment and Plan (1) Postoperative abdominal pain: Status: Acute (2) Intractable abdominal pain: Status: Acute Plan 62-year-old with past medical history of CAD, HTN, HLD, paroxysmal AFib not on anticoagulation comes into the hospital with complaints of intractable abdominal pain # intractable abdominal pain - lipase normal, no evidence of pancreatic inflammation on CT scan - status post ERCP on 05/22 - GI plan for repeat MRCP and possible repeat ERCP - pain management - supportive measures - keep NPO # HTN - continue antihypertensives # CAD - denies chest pain - reports a stent placed in her, does not seem the patient is on beta-blockers - follow-up with cook vegetable palpation # anxiety - continue anti anxiolytics DVT prophylaxis: SCDs Time Spent With Patient Time: Total time managing care of this patient today ____ minutes. Quality Stroke Does the patient have a stroke diagnosis?: No VTE Prior VTE?: No VTE Risk Level:: Medical - low VTE Device Contraindication: Treatment Not Indicated VTE Drug Contraindication: Treatment Not Indicated
[2023-05-23 02:33] VITALS: BP 126/106; PULSE 59; RESP 16; TEMP 36.9; O2SAT 93
--- NOTE | 2023-05-23 03:20 | PC.NURSE ---
Pt sleeping sully, awaken with verbal command, pt reports decreased abd pain. Pt remains NPO. wctm
[2023-05-23 04:20] VITALS: BP 129/52; PULSE 46; RESP 14; O2SAT 96
--- NOTE | 2023-05-23 04:53 | PC.NURSE ---
PTs heart rate is noted to be in mid 40s while sleeping, pt states this is normal for her. That she will even go down to 30s. Dr. Osuna made aware.
[2023-05-23 06:05] LABS: MANUAL DIFF FLAG NO
[2023-05-23 06:18] LABS: Basophils Percent Auto 0.1 % (0-2); Eosinophils Absolute Auto 0.1 X10*3/uL (0.0-0.4); Eosinophils Percent Auto 1.1 % (0-4); Hematocrit 35.9 % (37.0-47.0); Hemoglobin 11.9 g/dl (12.0-16.0); Imm Gran Abs Auto 0.02 X10*3/uL (0.00-0.03); Imm Gran Pct Auto 0.3 % (0.0-0.4); Lymphocytes Absolute Auto 1.1 X10*3/uL (1.2-4.9); Lymphocytes Percent Auto 15.7 % (20-40); Mean Corpuscular HGB Conc 33.1 g/dl (31.0-35.0); Mean Corpuscular Hemoglobin 30.1 pg (27.0-33.0); Mean Corpuscular Volume 90.7 fL (80.0-98.0); Mean Platelet Volume 10.5 fL (9.4-12.3); Monocytes Absolute Auto 0.5 X10*3/uL (0.1-1.2); Monocytes Percent Auto 7.4 % (2-11); Neutrophils Absolute Auto 5.3 x10*3/uL (2.0-8.3); Neutrophils Percent Auto 75.4 % (45-73); Platelet Count 160 X10*3/uL (160-400); Red Blood Count 3.96 X10*6/uL (4.20-5.50); Red Cell Distribution Width 12.9 % (11.0-16.0)
[2023-05-23 06:24] LABS: Alanine Aminotransferase 58 U/L (0-31); Albumin Level 3.5 g/dL (3.5-5.0); Alkaline Phosphatase 58 U/L (39-117); Anion Gap 10 (12-20); Aspartate Amino Transferase 51 U/L (5-31); Bilirubin Direct 0.4 mg/dL (0.0-0.5); Blood Urea Nitrogen 7 mg/dL (9-16); Carbon Dioxide 25 mmol/L (22-29); Chloride 110 mmol/L (96-108); Creatinine Clr Calc Pharmacy 70.9; Estimated Glomerular Filt Rate > 60; Glucose Fasting 76 mg/dL (60-99); Glucose Random 77 mg/dL (60-115); Potassium 3.9 mmol/L (3.3-5.1); Sodium 141 mmol/L (135-145); Total Protein 5.5 g/dL (6.5-8.0)
--- NOTE | 2023-05-23 07:44 | PHA.MEDREC ---
Pharmacy Consult ? Medication Reconciliation Pharmacy has completed the medication reconciliation. Spoke to patient at bedside, she was able to list all medications, strengths, and timing. Noted that she hasn't taken anything since Friday except for her blood pressure medications yesterday morning.
[2023-05-23 07:48] VITALS: BP 133/48; PULSE 48; RESP 14; TEMP 36.7; O2SAT 98
[2023-05-23] MEDS: 0.9 % Sodium Chloride Flush 3 ML SYRINGE IVFLUSH (07:54)
--- NOTE | 2023-05-23 08:47 | PC.NURSE ---
HOSP AT BEDSIDE PT AWARE OF PLAN OF CARE. PT'S HR 47, PT IS ASYMPTOMATIC. PT TO HAVE MRI THIS AM.
[2023-05-23 09:17] LABS: Thyroid Stimulating Hormone 2.49 uIU/mL (0.32-4.0)
--- NOTE | 2023-05-23 11:18 | PC.NURSE ---
transport here to take pt to MRI, pt requested PRN for pain. pt reports not wanting to take the full dose of morphine that was ordered. pt stated she only wants 1mg morphine, not 4mg as ordered. states she does not react well to that much morphine.pt said she will wait to be medicated until after returning from MRI. pt refused PO tylenol. pt taken to MRI.
--- NOTE | 2023-05-23 11:19 | PC.NURSE ---
assumed care of pt at 1100, pt to MRI.
--- NOTE | 2023-05-23 11:24 | PC.NURSE ---
Attempted to call report to S3, nurse unable to take report will call back
[2023-05-23 12:27] VITALS: BP 125/62; PULSE 57; RESP 16; TEMP 36.2; O2SAT 95
--- NOTE | 2023-05-23 12:43 | PM.EVENT ---
Event Note Date of Service: 05/23/23 Event Note: Patient already seen and examined by hospitalist team this morning. Seen and examined again Patient's with nausea seems to be improved, abdominal pain is somewhat also improving physical exam: unchanged except ruq tenderness somewhat improvin Assessment plan coordinated in H&P note. MRCP , GI evaluation Time Spent With Patient Time: Total time managing care of this patient today ____ minutes.
--- NOTE | 2023-05-23 14:09 | PM.DS ---
DS: Providers Provider Date of Service: 05/23/23 Date of admission: 05/23/23 02:19 Date of discharge: 05/23/23 Primary care physician: Zackery Gallardo MD Consults: 05/23/23 08:40 Consult to Gastroenterology Routine Consulting Provider: Zackery Mehta Reason for consultation: Post ercp - intractable pain Attending physician on discharge: Mariana Aguilera Discharging clinician: Mariana Aguilera DS: Diagnosis Discharge Diagnosis (1) Postoperative abdominal pain: Status: Acute (2) Intractable abdominal pain: Status: Acute DS: Summary Hospital Course Hospital Course: 62-year-old female with past medical history of CAD, HTN, HC LD, paroxysmal AFib not on anticoagulation comes into the hospital complaints of abdominal pain. Patient was seen by GI for ERCP as outpatient appointment due to right upper quadrant abdominal pain, abnormal x-ray of biliary tract concerning for possible stone. Patient underwent ERCP outpatient on 05/22, but could not go home if she developed worsening abdominal pain postprocedure as well as nausea and vomiting. She was then sent to the ED from postop for further evaluation. Patient reports that her abdominal pain is right upper quadrant, radiating to the back. Has nausea vomiting, no urinary symptoms and no lower extremity edema. No diarrhea or constipation. On arrival to the ED patient hemodynamically stable Labs are significant for WBC count of 6.6, hemoglobin of 11.7, hematocrit 34.8, labs otherwise unremarkable, lipase negative her LFTs show an AST of 79, ALT of [address] w contrast showed no acute abnormalities in the abdomen or pelvis, pneumobilia consistent with prior ERCP with sphincterotomy . Normal pancreas This was discussed with GI, plan for MRCP in the morning and possible repeat ERCP. Patient will be admitted for further management. Hospital course: Patient was admitted because of intractable nausea, abdominal pain after ERCP: Subsequently MRCP was done, and seen by GI, also patient was started on PPIs, antiemetics: Patient symptoms seems to be improved significantly, MRCP- reviewed by gi -No acute imaging abnormalities in the abdomen. Started on po diet seems tolerating, patient will go home , follow up with Gi outpatient. mild elevated Lft's -improving -repeat Lft's (liver function test in 1 week) , avoid hepatotoxic medications. further management outpatient with PCP and GI. plan: moniter Lft's (liver function test in 1 week) , avoid hepatotoxic medications. further management outpatient with PCP and GI. Above management discussed with the patient detail and she understand and in agreement with the above plan, time spent 50 minutes. A Time Spent with Patient Time attestation: Total time managing care of this patient today ____ minutes. Discharge coordination time: Greater than 30 minutes Quality: Safe Use of Opioids Does Pt have an Active Cancer Diagnosis on the Problem List?: No Quality: Stroke Does the patient have a stroke diagnosis?: No Physical Exam Vital Signs: Vital Signs: Last Vital Signs Temp 97.1 F 05/23/23 12:27 Pulse 57 05/23/23 12:27 Resp 16 05/23/23 12:27 BP 125/62 05/23/23 12:27 Pulse Ox 95 05/23/23 12:27 O2 Del Method Room Air 05/23/23 12:27 BMI result Body Mass Index 28.6 Appearance: Alert.? Oriented X3.? cvs: rrr, [id number] , no murmur res: clear to auscultation ,no rhonchii or wheezing abd: no rebound or guarding ,nt, bs present. ext pulses present , no cyanosis . neuro: axo3 , nonfocal. DS: Data Data Completed and Pending Labs on day of discharge: Laboratory Results - last 24 hr 05/22/23 05/23/23 22:20 05:41 WBC 6.6 7.0 RBC 3.86 L 3.96 L Hgb 11.7 L 11.9 L Hct 34.8 L 35.9 L MCV 90.2 90.7 MCH 30.3 30.1 MCHC 33.6 33.1 RDW 12.8 12.9 Plt Count 156 L D 160 MPV 10.4 10.5 Immature Gran % (Auto) 0.2 0.3 Neut % (Auto) 84.5 H 75.4 H Lymph % (Auto) 9.1 L 15.7 L [place] % (Auto) 5.6 7.4 Eos % (Auto) 0.3 1.1 Baso % (Auto) 0.3 0.1 Lymph # (Auto) 0.6 L 1.1 L [place] # (Auto) 0.4 0.5 Eos # (Auto) 0.0 0.1 Baso # (Auto) 0.0 0.0 Abs Immat Gran (auto) 0.01 0.02 Absolute Neuts (auto) 5.5 5.3 Absolute Nucleated RBC 0.000 0.000 Nucleated RBC % (auto) 0.0 0.0 Sodium 141 141 Potassium 4.0 3.9 Chloride 110 H 110 H Carbon Dioxide 24 25 Anion Gap 11 L 10 L BUN 11 7 L Creatinine 0.84 0.86 Estim Creat Clear Calc 72.6 70.9 Estimated GFR > 60 > 60 Random Glucose 121 H 77 Fasting Glucose 76 Calcium 8.8 D 9.0 Total Bilirubin 1.0 1.0 Direct Bilirubin 0.4 0.4 AST 79 H 51 H ALT 67 H 58 H Alkaline Phosphatase 59 58 Total Protein 5.7 L 5.5 L Albumin 3.5 3.5 Lipase 16 TSH 2.49 Imaging Chest x-ray: Radiologist's impression: ITS Impressions Abdomen/Pelvis CT 05/23/23 00:20 IMPRESSION: 1. No acute abnormalities are identified in the abdomen and pelvis. 2. Pneumobilia, consistent with prior ERCP with sphincterotomy. 3. Normal appearance of the pancreas. Fleischner guidelines were followed. Cholangiopancreatography MRI 05/23/23 11:45 IMPRESSION: No acute imaging abnormalities in the abdomen. Again noted is pneumobilia, status post recent ERCP. There is no perihepatic fluid collection. Common bile duct is chronically, mildly dilated and has normal smooth contour. There is no MR imaging evidence of choledocholithiasis. Discharge Plan Discharge Anticipated Discharge Date/Time: 05/23/23 13:41 Patient Disposition: Home, Self-Care Discharge Diagnosis: post ERCP pain Referrals: Zackery Gallardo MD [Primary Care Provider] - 1 Week Zackery Mehta [Physician] - 1 Week (follow up outpatient) Discharge Medications: Continued amlodipine [Norvasc] 2.5 mg tablet 2.5 mg PO DAILY 90 Days Qty: 90 0RF Rx Instructions: Please call and schedule follow-up and do lab work lorazepam 0.5 mg tablet 0.5 mg PO TID PRN (Reason: anxiety) Qty: 90 2RF ondansetron HCl 4 mg tablet 4 mg PO Q6H PRN (Reason: nausea) rosuvastatin 40 mg tablet 40 mg PO BEDTIME aspirin 81 mg Tablet,Delayed Release (Dr/Ec) 81 mg PO BEDTIME lamotrigine 150 mg tablet 150 mg PO BID olmesartan 40 mg tablet 40 mg PO DAILY escitalopram oxalate [Lexapro] 5 mg tablet 5 mg PO DAILY Qty: 90 1RF Discharge Orders: Discharge Order (Routine); Ordered 05/23/23 Ordered By: Mariana Aguilera Diet: Advance to usual diet Activity on Discharge: As tolerated Stand Alone Forms: Patient Portal Discharge page Care Plan Goals: Patient was admitted because of intractable nausea, abdominal pain after ERCP: Subsequently MRCP was done, and seen by GI, also patient was started on PPIs, antiemetics: Patient symptoms seems to be improved significantly, MRCP- reviewed by gi -No acute imaging abnormalities in the abdomen. Started on po diet seems tolerating: patient will go home , follow up with Gi outpatient. mild elevated Lft's -improving -repeat Lft's (liver function test in 1 week) , avoid hepatotoxic medications. further management outpatient with PCP and GI. Health Concerns: As above. Plan of Treatment: As above. Assessment: As above. Patient Instructions: Abdominal Pain (ED)
--- NOTE | 2023-05-23 14:48 | MHC.CM.PN ---
DX AB pain S/P surgical procedure removal of sludge in CBD. She is independent. She lives with her family. DP home self care. Family will provide transportation.
== END 2023-05-23 15:26 | disposition home or self-care (01) ==
LOC: HO.ED 05-23 00:49 → HO.EDOVER 05-23 02:35 → HO.S3 05-23 11:20
PROVIDERS: Internal Medicine; Physician Assistant Medical; Admitting Provider Internal Medicine; Emergency Provider Student in an Organized Health Care Education/Training Program; PCP Internal Medicine Medical Oncology; Visit Provider Internal Medicine
DX: G89.18 Other acute postprocedural pain (principal); R10.9 Unspecified abdominal pain; R11.2 Nausea with vomiting, unspecified; I48.0 Paroxysmal atrial fibrillation; I25.10 Atherosclerotic heart disease of native coronary artery without angina pectoris; I10 Essential (primary) hypertension; E78.5 Hyperlipidemia, unspecified; C67.9 Malignant neoplasm of bladder, unspecified
CPT/HCPCS: 36415; 74177; 74181; 80048; 80076; 83690; 84443; 85025; 96374; 96375; 99221; 99285; J1200; Q9967

== ENCOUNTER → 2023-05-23 02:19 | Outpatient (BNV) | payer MEDICARE, SELFPAY | PROVIDERS: Admitting Provider Internal Medicine; Emergency Provider Student in an Organized Health Care Education/Training Program; PCP Internal Medicine Medical Oncology; Visit Provider Internal Medicine | DX: R10.9 Unspecified abdominal pain (principal); G89.18 Other acute postprocedural pain | CPT/HCPCS: 99236; 99499 ==

== ENCOUNTER 2023-05-29 10:58 | Outpatient (AMB) | payer MEDICARE, SELFPAY ==
--- NOTE | 2023-05-29 10:59 | MHC.OFFVIS ---
Intake Vital Signs 05/29/23 11:13 Height 5 ft 4 in Weight 174 lb 8 oz BMI 29.9 BP 116/71 Blood Pressure Location Lt brachial Position Sitting Pulse 70 Intake Visit Reasons: 2nd opinion, RUQ abd pain after GB removal Intake Note: Patient is seen in office for second opinion right upper quadrant pain post cholecystectomy. 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 Required: No Accompanied by: Self / Same As Patient Allergies amoxicillin [Amoxicillin] Allergy (Mild, Verified 05/29/23 11:07) RASH cefaclor [From Ceclor] Allergy (Mild, Verified 05/29/23 11:07) RASH Sulfa (Sulfonamide Antibiotics) [Sulfa (Sulfonamides)] Allergy (Mild, Verified 05/29/23 11:07) RASH HIVES, rash doxycycline [DOXYCYCLINE] Allergy (Unknown, Verified 05/29/23 11:07) ULCER Medication List - Last Reconciled 05/29/23 by Garrett Castañeda MD amlodipine (Norvasc) 2.5 mg PO DAILY 90 days aspirin 81 mg PO BEDTIME escitalopram oxalate (Lexapro) 5 mg PO DAILY lamotrigine 150 mg PO BID lorazepam 0.5 mg PO TID PRN olmesartan 40 mg PO DAILY ondansetron HCl 4 mg PO Q6H PRN rosuvastatin 40 mg PO BEDTIME HPI HPI Comments History of Present Illness Details 62-year-old female patient presenting with complaints of right upper quadrant abdominal pain. She reports a prior history of similar pain which which occurred intermittently over the many years but now has become more persistent for the past 9 weeks. Pain is associated with nausea and vomiting. She reports a prior laparoscopic cholecystectomy in 1984 at [facility] while she was in her 3rd trimester . Since the onset of the abdominal pain she underwent workup with CT abdomen and pelvis and ultrasound. This revealed a dilated common bile duct of approximately [address] seemed indicate an obstruction at the distal common bile duct. No pancreatic mass was identified. An upper endoscopy was suggestive of gastritis and subsequent ERCP revealed possible sludge but no definite stone. Following the ERCP she complained of approximately 4 days of increased severe epigastric and right upper quadrant abdominal pain which subsequently improved spontaneously. Subsequent MRCP and CT abdomen and pelvis revealed pneumobilia but no evidence of bile duct obstruction or pancreatitis. The pain seems to increase after eating fatty foods such as ice cream. As a result she has maintained a low-fat diet. She does report her bowels have been irregular but denies any bleeding or diarrhea. [facility] Medical History Generalized anxiety disorder Major depression, recurrent, chronic CAD (coronary artery disease) Hyperlipidemia Bladder cancer Family history of premature coronary artery disease HTN (hypertension) Paroxysmal atrial fibrillation Surgical History History of colonoscopy History of 2 sections History of partial hysterectomy History of right inguinal hernia repair (2003) History of cholecystectomy S/P cardiac cath History of hip surgery Family History Father CAD (coronary artery disease) Mother HTN (hypertension) Cancer Brother HTN (hypertension) Sister HTN (hypertension) Paternal Grandmother Stroke Paternal Grandfather CAD (coronary artery disease) Paternal Uncle CAD (coronary artery disease) Maternal Grandmother Colon cancer Maternal Aunt Colon cancer Social History Household Members: Spouse and Children Housing: Custodial Do you presently have visiting nurse or other home services: No Alcohol intake: former Patient Tobacco Use Status: Never used Tobacco Substance Use Type: Marijuana service: Yes Review of Systems Const All systems reviewed & are unremarkable except as noted in HPI and below Denies chills, Denies fever(s), Denies headache(s), Denies poor appetite and Denies weakness ENT Denies headache(s) Card Denies chest pain, Reports irregular heart rhythm, Denies palpitations and Denies dyspnea Resp Denies cough, Denies excessive phlegm production and Denies dyspnea GI Reports abdominal pain, Denies bloating, Denies change in bowel habits, Reports constipation, Denies heartburn, Denies diarrhea, Reports nausea and Denies vomiting Denies urinary frequency Musc Denies back pain, Denies muscle weakness and Denies numbness Skin/Breast Denies changing lesions and Denies unusual bruising Neuro Denies headache(s), Denies numbness, Denies paresthesias and Denies weakness Psych Reports anxiety and Denies depression Endo Denies palpitations Robin/Lymph Denies lymphadenopathy Physical Exam Const General: cooperative and no acute distress Nutritional Appearance: well nourished Orientation/consciousness: patient oriented x3 Limitations: no limitations HEENT Head: Yes normocephalic and Yes atraumatic Ears: hearing grossly normal bilaterally Resp Effort & Inspection: normal respiratory effort, no audible wheezes, no cough and no respiratory distress Cardio Jugular venous distension: no JVD GI Inspection: Yes normal to inspection, No distended and Yes incision (Right subcostal, s/p open cholecystectomy) Palpation (GI): Soft to palpation, Tenderness to palpation present (GI) (To deep palpation mainly in the right upper quadrant without rebound) in the RUQ; Roman's sign negative, no hernias, no masses and No Rebound tenderness present Percussion: Yes normal to percussion Rectal Exam - Female: deferred Skin Other: Warm, dry, no rash Neuro General: patient oriented x3 Extrem General: Yes no clubbing, cyanosis or edema Assessment & Plan Assessment & Plan (1) Intractable abdominal pain: Code(s): R10.9 - Unspecified abdominal pain Plan 62-year-old female patient presenting with complaints of right upper quadrant abdominal pain of 9 weeks duration with negative ERCP for gallstones. She underwent sphincterotomy and subsequently developed of 4 days of increased abdominal pain. This may have been a transient pancreatitis which decreased her pain following ERCP/sphincterotomy. Images reviewed in detail with the patient. The patient is area of tenderness does seem to correspond to her cecum which is high, within the right upper quadrant. Her symptoms may be related to colonic distension although there is no evidence of bowel obstruction. She does report constipation for which I recommended daily MiraLax and stool softener. I cannot find any other explanation for abdominal pain and would not recommend any additional testing at this time. She does report a new breast lump for which she will be undergoing a mammogram and ultrasound soon. She is welcome to return if any issues are identified on the studies. She expressed understanding and agrees with the plan. Coding Level of Care Code New Pt Level 4 (03299) Diagnoses Intractable abdominal pain R10.9
[2023-05-29 11:13] VITALS: BP 116/71; PULSE 70; BMI 29.9
== END 2023-05-29 12:24 | disposition home or self-care (01) ==
PROVIDERS: PCP Internal Medicine Medical Oncology; Referring Provider Internal Medicine Medical Oncology; Visit Provider Surgery
DX: R10.9 Unspecified abdominal pain (principal)
CPT/HCPCS: 99203

== ENCOUNTER 2023-05-29 12:05 | Outpatient (REF) | payer MEDICARE, MEDICAID, SELFPAY ==
--- NOTE | ~2023-05-29 | MM_ITS ---
EXAMINATION: MM DIAGNOSTIC DIGITAL BREAST TOMOSYNTHESIS, RIGHT AND RIGHT BREAST ULTRASOUND CLINICAL INFORMATION: The patient has an area of palpable concern in the 12:00 region of the right breast 8 cm from the nipple. COMPARISON: Mammography: This study is compared with prior exams dating back to 2019. TECHNIQUE: Digital breast tomosynthesis is performed in both the craniocaudal and mediolateral oblique views along with computer-aided detection (CAD). Synthesized 2D images are generated from the tomosynthesis. FINDINGS: The breasts are almost entirely fatty (ACR BI-RADS breast composition Category a). There are no significant masses, abnormal calcifications, or other abnormalities. ULTRASOUND: Sonography of the area of patient's palpable concern, 12:00 8 cm from nipple was performed. In this location, there is a subtle hypoechoic region within the skin measuring 3 mm in greatest dimension. This structure is not related to the breast parenchyma itself but rather represents a small skin findings such as a small area of inflammation or sebaceous cyst formation. Nonetheless, there are no suspicious features. MM/MM tomosynthesis diagnostic RT IMPRESSION: Patient's area of palpable concern in the 12:00 region of the right breast represents a finding entirely within the skin measuring 3 mm which is benign. Clinical follow-up is advised. No mammographic evidence of malignancy. ASSESSMENT: BI-RADS BI-RADS 2 - Benign Findings RECOMMENDATION: Clinical follow-up is advised. Routine annual screening mammography is advised. This is due in January 2024. 1 year F/U Results were provided to the patient at time of visit by the technologist. This patient's information was entered into a reminder system with a target due date for their next mammogram.
== END 2023-05-29 12:06 | disposition home or self-care (01) ==
LOC: HO.MAMMO 12:05
PROVIDERS: PCP Internal Medicine Medical Oncology; Visit Provider Internal Medicine Medical Oncology
DX: N63.15 Unspecified lump in the right breast, overlapping quadrants (principal)
CPT/HCPCS: 76642; 77061; 77065

== ENCOUNTER 2023-06-17 10:04 | Outpatient (REF) | payer MEDICARE, MEDICAID, SELFPAY ==
[2023-06-17 10:26] LABS: MANUAL DIFF FLAG NO
[2023-06-17 12:46] LABS: Basophils Percent Auto 0.7 % (0-2); Eosinophils Absolute Auto 0.1 X10*3/uL (0.0-0.4); Eosinophils Percent Auto 3.1 % (0-4); Hemoglobin 12.8 g/dl (12.0-16.0); Imm Gran Abs Auto 0.02 X10*3/uL (0.00-0.03); Imm Gran Pct Auto 0.4 % (0.0-0.4); Lymphocytes Percent Auto 22.4 % (20-40); Mean Corpuscular HGB Conc 32.8 g/dl (31.0-35.0); Mean Corpuscular Volume 91.5 fL (80.0-98.0); Mean Platelet Volume 10.6 fL (9.4-12.3); Monocytes Absolute Auto 0.3 X10*3/uL (0.1-1.2); Monocytes Percent Auto 7.2 % (2-11); Neutrophils Percent Auto 66.2 % (45-73); Platelet Count 207 X10*3/uL (160-400); Red Blood Count 4.26 X10*6/uL (4.20-5.50); Red Cell Distribution Width 13.3 % (11.0-16.0); White Blood Count 4.5 X10*3/uL (4.8-10.8)
[2023-06-17 13:25] LABS: Alanine Aminotransferase 53 U/L (0-31); Albumin Level 4.3 g/dL (3.5-5.0); Alkaline Phosphatase 59 U/L (39-117); Amylase 77 U/L (28-100); Anion Gap 12 (12-20); Aspartate Amino Transferase 37 U/L (5-31); Blood Urea Nitrogen 16 mg/dL (9-16); Calcium 9.7 mg/dL (8.4-10.2); Carbon Dioxide 26 mmol/L (22-29); Chloride 109 mmol/L (96-108); Cholesterol 176 mg/dL (<200); Estimated Glomerular Filt Rate > 60; Glucose Fasting 77 mg/dL (60-99); HDL Cholesterol 61 mg/dL (>40); LDL Cholesterol Calculated 98 mg/dL (<100); Lipase 21 U/L (8-78); Potassium 4.2 mmol/L (3.3-5.1); Sodium 143 mmol/L (135-145); Total Protein 6.8 g/dL (6.5-8.0); Triglycerides 89 mg/dL (<150)
[2023-06-17 13:40] LABS: Erythrocyte Sedimentation Rate 22 MM/HR (0-20)
== END 2023-06-17 10:05 | disposition home or self-care (01) ==
LOC: HO.LAB 10:04
PROVIDERS: PCP Internal Medicine Medical Oncology; Visit Provider Internal Medicine Medical Oncology
DX: I10 Essential (primary) hypertension (principal); E66.9 Obesity, unspecified; K29.70 Gastritis, unspecified, without bleeding; E78.2 Mixed hyperlipidemia
CPT/HCPCS: 36415; 80053; 80061; 82150; 83690; 85025; 85652

== ENCOUNTER 2023-09-03 14:03 | Outpatient (AMB) | payer MEDICARE, MEDICAID, SELFPAY ==
--- NOTE | 2023-09-03 14:26 | A.OFFPSYCH_ITS ---
Intake Intake Visit Reasons: DEPRESSION Allergies amoxicillin [Amoxicillin] Allergy (Mild, Verified 05/29/23 11:07) RASH cefaclor [From Ceclor] Allergy (Mild, Verified 05/29/23 11:07) RASH Sulfa (Sulfonamide Antibiotics) [Sulfa (Sulfonamides)] Allergy (Mild, Verified 05/29/23 11:07) RASH HIVES, rash doxycycline [DOXYCYCLINE] Allergy (Unknown, Verified 05/29/23 11:07) ULCER HPI- Psychiatric Chief Complaint: DEPRESSION HPI Narrative: Pt has bees beenn dealing with old trauma based on when she was in the and has brought up issues related her oldest daughter and there relationship and concerns regarding her ex who has moved in with her d and is her daughters biological father who has become a part of her daughter's life. This has become somewhat triggering to the patient who has been dealing with rel trauma in relation to her daughters father. She has been dealing with inc anxiety and interper issues with her daughyter . This trauma related issue may have set the pt up for later anxiety and depressive sx .Greyson 8 phq 9 6 Past Psychiatric History: hx recurrent agitated depression and anxiety occ panic /has had medication induced mixed state with cymbalta Mental Status Exam Mental Status Exam Patient Appearance: Well Grooomed Patient Orientation: Person, Place, Time and Situation Level of Consciousness: Awake Patient Behavior: Appropriate Mood Description: Calm, Appropriate, Constricted, Anxious, Nervous and Apprehensive Affect Description: Appropriate and Apprehensive Ability to Follow Directions: Good Speech Pattern: Clear Memory Description: Intact Hallucinations: None Delusions: Not Present Thought Process: Intact Thought Content: positive for Preoccupation, negative for Suicidal Ideation or negative for Homicidal Ideation Depressive Symptoms: Increased Anxiety Assessment and Plan Assessment & Plan (1) Generalized anxiety disorder: Status: Acute Code(s): F41.1 - Generalized anxiety disorder (2) Major depression, recurrent, chronic: Status: Acute Code(s): F33.9 - Major depressive disorder, recurrent, unspecified (3) Post traumatic stress disorder (PTSD): Status: Acute Code(s): F43.10 - Post-traumatic stress disorder, unspecified Plan bladder cancer heart disease seems to be stable cont lexapro lamictal see how things evolve in [place] higher doses of anti dep have been triggering occ low dose use of marijuana pt seems to be dealing with early adult trauma that has had impact on her life Counseling and coordination of Care Details: I spent [] minutes reviewing the record, seeing the patient and documenting in the medical record. Counseling provided to the patient/caregiver as outlined below. Addressed patient/caregiver concerns regarding current medication regime including effective adherence. Addressed patient/caregiver concerns regarding diagnosis and prognosis including accuracy of diagnosis, prognosis over time, impact of diagnosis. Addressed patient/caregiver concerns regarding impact of recent stressors. [facility] Medical History Generalized anxiety disorder Major depression, recurrent, chronic CAD (coronary artery disease) Hyperlipidemia Bladder cancer Family history of premature coronary artery disease HTN (hypertension) Paroxysmal atrial fibrillation Surgical History History of colonoscopy History of 2 sections History of partial hysterectomy History of right inguinal hernia repair (2003) History of cholecystectomy S/P cardiac cath History of hip surgery Family History Father CAD (coronary artery disease) Mother HTN (hypertension) Cancer Brother HTN (hypertension) Sister HTN (hypertension) Paternal Grandmother Stroke Paternal Grandfather CAD (coronary artery disease) Paternal Uncle CAD (coronary artery disease) Maternal Grandmother Colon cancer Maternal Aunt Colon cancer Social History Household Members: Spouse and Children Housing: Custodial Do you presently have visiting nurse or other home services: No Alcohol intake: former Patient Tobacco Use Status: Never used Tobacco Substance Use Type: Marijuana service: Yes Social History: pt on ssd has 4 daughters 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
== END 2023-09-03 14:30 | disposition home or self-care (01) ==
LOC: HO.HOP 14:03
PROVIDERS: PCP Internal Medicine Medical Oncology; Visit Provider Psychiatry & Neurology Psychiatry
DX: F41.1 Generalized anxiety disorder (principal); F33.9 Major depressive disorder, recurrent, unspecified; F43.10 Post-traumatic stress disorder, unspecified
CPT/HCPCS: 90833; 99213

== ENCOUNTER → 2023-09-03 14:03 | Outpatient (BNVA) | payer MEDICARE, MEDICAID, SELFPAY | PROVIDERS: PCP Internal Medicine Medical Oncology; Visit Provider Psychiatry & Neurology Psychiatry | DX: F33.9 Major depressive disorder, recurrent, unspecified (principal); F41.1 Generalized anxiety disorder; F43.10 Post-traumatic stress disorder, unspecified | CPT/HCPCS: 90833; 99212 ==

== ENCOUNTER 2023-12-01 12:09 | Outpatient (AMB) | payer MEDICARE, MEDICAID, SELFPAY ==
--- NOTE | 2023-12-01 12:23 | A.OFFPSYCH_ITS ---
Intake Intake Visit Reasons: depression Allergies amoxicillin [Amoxicillin] Allergy (Mild, Verified 05/29/23 11:07) RASH cefaclor [From Ceclor] Allergy (Mild, Verified 05/29/23 11:07) RASH Sulfa (Sulfonamide Antibiotics) [Sulfa (Sulfonamides)] Allergy (Mild, Verified 05/29/23 11:07) RASH HIVES, rash doxycycline [DOXYCYCLINE] Allergy (Unknown, Verified 05/29/23 11:07) ULCER HPI- Psychiatric Chief Complaint: depression HPI Narrative: Pt generally doing ok with some periods of severe abd pain now seeing gi DR rai padgett at [place] [facility] did endoscopy erosive gastritis now on dexilant 5 citalopram lucian about 1 mg daily occ use of edibles 5 mg lamictal 150 bid has massage 1 x month at [place] generally sees vijay greer [facility] [place] doing emdr Past Psychiatric History: hx recurrent agitated depression and anxiety occ panic /has had medication induced mixed state with cymbalta Mental Status Exam Mental Status Exam Patient Appearance: Well Grooomed Patient Orientation: Person, Place, Time and Situation Level of Consciousness: Awake Patient Behavior: Appropriate Mood Description: Calm, Appropriate, Constricted and Nervous Affect Description: Appropriate and Apprehensive Ability to Follow Directions: Good Speech Pattern: Clear Memory Description: Intact Hallucinations: None Delusions: Not Present Thought Process: Intact Thought Content: positive for Preoccupation, negative for Suicidal Ideation or negative for Homicidal Ideation Depressive Symptoms: Increased Anxiety Judgement: Good Judgement and Insight: dealing with flashbacks of early trauma issue Assessment and Plan Assessment & Plan (1) Post traumatic stress disorder (PTSD): Status: Acute Code(s): F43.10 - Post-traumatic stress disorder, unspecified Assessment and Plan: pt generally stable mentally processing some degree of ptsd from past very active in tx (2) Generalized anxiety disorder: Status: Acute Code(s): F41.1 - Generalized anxiety disorder Plan pt dealing with ptsd issues from past going to [place] therapist has intermittant abd pain ? etilogy doing better generally with h better Medications: Refilled lamotrigine 150 mg PO BID 180 tabs 0RF 90 days escitalopram oxalate (Lexapro) 5 mg PO DAILY 90 tabs 0RF Counseling and coordination of Care Pt. Self Management counseling: Breathing Details: I spent [] minutes reviewing the record, seeing the patient and documenting in the medical record. Counseling provided to the patient/caregiver as outlined below. Addressed patient/caregiver concerns regarding current medication regime including eff ective adherence. Addressed patient/caregiver concerns regarding diagnosis and prognosis including accuracy of diagnosis, prognosis over time, impact of diagnosis. Addressed patient/caregiver concerns regarding impact of recent stressors. [facility] Medical History Generalized anxiety disorder Major depression, recurrent, chronic CAD (coronary artery disease) Hyperlipidemia Bladder cancer Family history of premature coronary artery disease HTN (hypertension) Paroxysmal atrial fibrillation Surgical History History of colonoscopy History of 2 sections History of partial hysterectomy History of right inguinal hernia repair (2003) History of cholecystectomy S/P cardiac cath History of hip surgery Family History Father CAD (coronary artery disease) Mother HTN (hypertension) Cancer Brother HTN (hypertension) Sister HTN (hypertension) Paternal Grandmother Stroke Paternal Grandfather CAD (coronary artery disease) Paternal Uncle CAD (coronary artery disease) Maternal Grandmother Colon cancer Maternal Aunt Colon cancer Social History Household Members: Spouse and Children Housing: [facility] Do you presently have visiting nurse or other home services: No Alcohol intake: former Patient Tobacco Use Status: Never used Tobacco Substance Use Type: Marijuana service: Yes Social History: pt on ssd has 4 daughters 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
== END 2023-12-01 13:19 | disposition home or self-care (01) ==
LOC: HO.HOP 12:09
PROVIDERS: PCP Internal Medicine Medical Oncology; Visit Provider Psychiatry & Neurology Psychiatry
DX: F43.10 Post-traumatic stress disorder, unspecified (principal); F41.1 Generalized anxiety disorder
CPT/HCPCS: 90833; 99213

== ENCOUNTER → 2023-12-01 12:09 | Outpatient (BNVA) | payer MEDICARE, MEDICAID, SELFPAY | PROVIDERS: PCP Internal Medicine Medical Oncology; Visit Provider Psychiatry & Neurology Psychiatry | DX: F43.10 Post-traumatic stress disorder, unspecified (principal); F41.1 Generalized anxiety disorder | CPT/HCPCS: 99212 ==

== ENCOUNTER 2023-12-19 09:56 | Outpatient (REF) | payer MEDICARE, MEDICAID, SELFPAY ==
--- NOTE | ~2023-12-19 | FL_ITS ---
EXAMINATION: Modified Barium Swallow CLINICAL INFORMATION: Dysphagia COMPARISON: None TECHNIQUE: Modified barium swallow was performed under lateral fluoroscopy with patient in standing position. Barium mixed with solids and liquids of varying consistencies was administered by the speech pathologist. The exam was recorded in the fluoroscopy suite. FINDINGS: No evidence of laryngeal penetration or aspiration during this examination. Patient is status post ACDF of C4-C5. Bony fusion through the disc space with disc graft. No complication evident. There is a large anterior bridging osteophyte of C3-C4 that causes moderate extrinsic compression of the posterior wall the hypopharynx. This may be contributing to the patient's globus sensation. FLUOROSCOPY TIME: 1 minute 5 seconds Number of Spot Images: 1 DOSE AREA PRODUCT: 583.5 uGy-m2 (microgray-meter squared) FL/FL barium swallow modified IMPRESSION: 1. No evidence of laryngeal penetration or aspiration. 2. Status post ACDF of C4-C5. 3. Anterior bridging osteophytes of C3-C4 causing moderate extrinsic compression of the posterior wall of esophagus. This may be contributing to the patient's globus sensation. Refer to the speech therapy report for further clarification This procedure was performed by Danny Jauregui PA-C, and supervised by Dr. Ann
--- NOTE | 2024-01-02 11:45 | MHC.SL.IMP ---
Date of Plan of Treatment: 12/19/23 Onset of Symptoms/Illness: 12/19/23 Date Treatment Started: 12/19/23 Admitting Diagnosis: Dyphagia Primary Speech & Language Diagnosis: R13.10 Dysphagia Reason for Today's Visit: [id number] Modified Barium Swallow Study Pre-evaluation Dietary Consistencies: Regular Pre-evaluation Liquid Consistency: Thin Pre-evaluation Medication Administration: Whole with Liquid Medical History: Acid Reflux Other: See below Anxiety PTSD Bladder CA Cervical Fusion (C5-C6) Oral Motor Exam Facial Symmetry: Normal for Patient Symmetrical Mouth Occlusion: Normal Oral-Facial Teeth Characteristics: Intact/Normal Oral-Facial Teeth Miscellaneous Observation: Oral-Facial Lip Pucker Description: Normal Oral-Facial Smile (Lips) Description: Normal Oral-Facial Puff Cheeks Description: Normal Tongue Size: Normal Tongue Frenum Length: Normal Tongue Excursion Description: Oral Expression Ability: Intact Is patient able to manage secretions?: Yes Is patient able to produce volitional cough?: Yes Food and Liquid Trials: Oral Impairment: Lip Closure: 1=Interlabial escape; no progression to anterior tip Oral Impairment: Tongue Control During Bolus Hold: 0=Cohesive bolus between tongue to palatal seal Oral Impairment: Bolus Preparation/Mastication: 0=Timely and efficient chewing and mashing Oral Impairment: Bolus Transport/Lingual Motion: 0=Brisk tongue motion Oral Impairment: Oral Residue: 1=Trace residue lining oral structures Oral Impairment:Initiation of Pharyngeal Swallow: 1=Bolus head in valleculae Pharyngeal Impairment: Soft Palate Elevation: 0=No bolus between soft palate (SP)/pharyngeal wall (PW) Pharyngeal Impairment: Laryngeal Elevation: 0=Complete superior movement of thyroid cartilage (see description) Pharyngeal Impairment: Anterior Hyoid Excursion: 0=Complete anterior movement Pharyngeal Impairment: Epiglottic Movement: 0=Complete inversion Pharyngeal Impairment: Laryngeal Vestibular Closure:: 1=Incomplete: narrow column air/contrast in laryngeal vestibule Pharyngeal Impairment: Pharyngeal Stripping Wave: 0=Present: complete Pharyngeal Impairment: Pharyngeal Contraction: Did not test Pharyngeal Impairment: Pharyngoesophageal Segment Openin=Partial distention/partial duration: partial obstruction of flow Pharyngeal Impairment: Tongue Base (TB) Retraction: 1=Trace column of contrast/air between TB and posterior PW Pharyngeal Impairment: Pharyngeal Residue: 1=Trace residue within or on pharyngeal structures Pharyngeal Impairment: Esophageal Clearance Upright Position: Did not test Impressions and Recommendations Clinical Observations: MBSImP Results: Lip closure for intraoral bolus containment resulted in interlabial escape, without progression to the anterior lip. Tongue control during bolus hold maintained a cohesive bolus held between tongue to palate seal. Bolus preparation and mastication resulted in timely and efficient chewing and mashing. Bolus transport/lingual motion was with brisk tongue motion. Oral residue was a trace, lining oral structures. Initiation of the pharyngeal swallow occurred when the bolus head was in the valleculae. Soft palate elevation resulted in no bolus between the soft palate and the pharyngeal wall. Laryngeal elevation demonstrated complete superior movement of the thyroid cartilage with complete approximation of the arytenoids to the epiglottic petiole. Anterior hyoid excursion demonstrated complete anterior movement. Epiglottic movement resulted in complete inversion. Laryngeal vestibular closure was incomplete, with a narrow column of air/contrast noted within the laryngeal vestibule at the height of the swallow. Pharyngeal stripping wave was present and complete. Pharyngeal contraction could not be determined due to logistical reasons not related to physiologic impairment. Pharyngoesophageal segment opening demonstrated partial distension/partial duration, with partial obstruction of bolus flow. Tongue base retraction allowed a trace column of contrast or air between the retracted tongue base and the posterior pharyngeal wall. Pharyngeal residue was a trace within or on pharyngeal structures. Esophageal clearance in the upright position could not be assessed due to logistical reasons not related to physiologic impairment. Summary: No overt penetration or aspiration across consistencies. No significant pharyngeal residue that would validate her globus sensation. Incidental finding of anterior cervical hardware across C5-C6. There is also a rather large anterior cervical osteophyte encroaching to the posterior pharyngeal wall. This may be a possible source of her reported symptoms. Not to be dismissed however are past medical history of anxiety and GERD which can also contribute to globus pharyngus. Liquid Intake Recommendation: Thin Liquid Intake Strategies: Unrestricted Dietary Recommendations: Regular Medication Administration: Whole with Puree Please contact the pharmacy regarding appropriate crushable or liquid drug formulations that are available whenever modified delivery is recommended. Compensatory Strategies Recommended: Supervision during eating and or drinking: None Needed Recommended Treatments: Compens. Strategy Educat. Recommendation for Speech Therapy: NA:Typical Evaluation Text Comment: Follow-up with referring provider. Timeline to reassess: N/A Wax Engraver Clinician/Clinical Fellow: No Supervisory Statement: N/A Speech Language Pathologist: Roebrto Miles M.A., CCC-ENVELOPE MACHINE OPERATOR
== END 2023-12-19 09:57 | disposition home or self-care (01) ==
LOC: HO.XRAY 09:56
PROVIDERS: PCP Internal Medicine Medical Oncology; Visit Provider Internal Medicine Medical Oncology
DX: R13.10 Dysphagia, unspecified (principal)
CPT/HCPCS: 74230; 92611

== ENCOUNTER → 2023-12-19 09:59 | Outpatient (BNV) | payer MEDICARE, MEDICAID, SELFPAY | PROVIDERS: PCP Internal Medicine Medical Oncology; Visit Provider Physician Assistant Surgical | DX: R13.10 Dysphagia, unspecified (principal) | CPT/HCPCS: 74230 ==

== ENCOUNTER 2023-12-31 09:55 | Outpatient (REF) | payer MEDICARE, MEDICAID, SELFPAY ==
[2023-12-31 10:12] LABS: MANUAL DIFF FLAG NO
[2023-12-31 10:45] LABS: Basophils Percent Auto 0.9 % (0-2); Eosinophils Absolute Auto 0.1 X10*3/uL (0.0-0.4); Eosinophils Percent Auto 2.9 % (0-4); Hematocrit 41.7 % (37.0-47.0); Hemoglobin 13.6 g/dl (12.0-16.0); Imm Gran Abs Auto 0.01 X10*3/uL (0.00-0.03); Imm Gran Pct Auto 0.2 % (0.0-0.4); Lymphocytes Percent Auto 23.3 % (20-40); Mean Corpuscular HGB Conc 32.6 g/dl (31.0-35.0); Mean Corpuscular Hemoglobin 29.6 pg (27.0-33.0); Mean Corpuscular Volume 90.8 fL (80.0-98.0); Mean Platelet Volume 10.2 fL (9.4-12.3); Monocytes Absolute Auto 0.3 X10*3/uL (0.1-1.2); Monocytes Percent Auto 7.6 % (2-11); Neutrophils Absolute Auto 2.9 x10*3/uL (2.0-8.3); Neutrophils Percent Auto 65.1 % (45-73); Platelet Count 226 X10*3/uL (160-400); Red Blood Count 4.59 X10*6/uL (4.20-5.50); Red Cell Distribution Width 12.7 % (11.0-16.0); White Blood Count 4.5 X10*3/uL (4.8-10.8)
[2023-12-31 11:27] LABS: Alanine Aminotransferase 89 U/L (0-31); Albumin Level 4.4 g/dL (3.5-5.0); Alkaline Phosphatase 69 U/L (39-117); Anion Gap 10 (12-20); Aspartate Amino Transferase 62 U/L (5-31); Bilirubin Total 1.1 mg/dL (0.0-1.0); Blood Urea Nitrogen 16 mg/dL (9-16); Calcium 9.7 mg/dL (8.4-10.2); Carbon Dioxide 28 mmol/L (22-29); Chloride 107 mmol/L (96-108); Cholesterol 199 mg/dL (<200); Estimated Glomerular Filt Rate > 60; Glucose Fasting 92 mg/dL (60-99); HDL Cholesterol 71 mg/dL (>40); LDL Cholesterol Calculated 113 mg/dL (<100); Potassium 4.3 mmol/L (3.3-5.1); Sodium 141 mmol/L (135-145); Total Protein 7.3 g/dL (6.5-8.0); Triglycerides 77 mg/dL (<150)
== END 2023-12-31 09:56 | disposition home or self-care (01) ==
LOC: HO.LAB 09:55
PROVIDERS: PCP Internal Medicine Medical Oncology; Visit Provider Internal Medicine Medical Oncology
DX: I10 Essential (primary) hypertension (principal); E66.9 Obesity, unspecified; E78.2 Mixed hyperlipidemia
CPT/HCPCS: 36415; 80053; 80061; 85025

== ENCOUNTER 2024-03-01 12:08 | Outpatient (AMB) | payer MEDICARE, MEDICAID, SELFPAY ==
--- NOTE | 2024-03-01 12:12 | A.OFFPSYCH_ITS ---
Intake Intake Visit Reasons: depression Allergies amoxicillin [Amoxicillin] Allergy (Mild, Verified 05/29/23 11:07) RASH cefaclor [From Ceclor] Allergy (Mild, Verified 05/29/23 11:07) RASH Sulfa (Sulfonamide Antibiotics) [Sulfa (Sulfonamides)] Allergy (Mild, Verified 05/29/23 11:07) RASH HIVES, rash doxycycline [DOXYCYCLINE] Allergy (Unknown, Verified 05/29/23 11:07) ULCER Medication List - Last Reconciled 03/01/24 by Ward Davis MD amlodipine (Norvasc) 2.5 mg PO DAILY 90 days aspirin 81 mg PO BEDTIME dicyclomine 20 mg PO QID escitalopram oxalate 5 mg PO DAILY fluticasone propionate 50 mcg/actuation sprays intranasal lamotrigine 150 mg PO DAILY linaclotide (Linzess) 145 mcg PO DAILY lorazepam 0.5 mg PO TID PRN olmesartan 40 mg PO DAILY ondansetron HCl 4 mg PO Q6H PRN rosuvastatin 40 mg PO BEDTIME HPI- Psychiatric Chief Complaint: depression HPI Narrative: Pt saw dr foley had ercp with lesion in the common bile duct precancerous has spasm at sphincter of seem[facility] dr smith retimatthew may go to [facility] dr caro frequently consumed by multiple medical problems contributing to anxiety and dysphoria. Does feel more supported by her . Has been dealing with past [facility] regular structure relatively stable low-dose escitalopram Lamictal lorazepam. Has not tolerated multiple other treatments Past Psychiatric History: hx recurrent agitated depression and anxiety occ panic /has had medication induced mixed state with cymbalta Mental Status Exam Mental Status Exam Patient Appearance: Well Grooomed Patient Orientation: Person, Place, Time and Situation Level of Consciousness: Awake Patient Behavior: Appropriate Mood Description: Calm, Appropriate, Constricted and Nervous Affect Description: Appropriate and Apprehensive Ability to Follow Directions: Good Speech Pattern: Clear Memory Description: Intact Hallucinations: None Delusions: Not Present Thought Process: Intact Thought Content: positive for Preoccupation, negative for Suicidal Ideation or negative for Homicidal Ideation Depressive Symptoms: Increased Anxiety Judgement: Good Judgement and Insight: dealing with flashbacks of early trauma issue Assessment and Plan Assessment & Plan (1) Post traumatic stress disorder (PTSD): Status: Acute Code(s): F43.10 - Post-traumatic stress disorder, unspecified (2) Major depression in full remission: Status: Acute Code(s): F32.5 - Major depressive disorder, single episode, in full remission (3) Generalized anxiety disorder: Status: Acute Code(s): F41.1 - Generalized anxiety disorder Plan pt recently dx with common bile duct lesion precancerous lesion feels supported by her anxiety symptoms at times can be overwhelming history of bladder cancer can feel overwhelmed at times with medical difficulties cardiac, cancer and now significant abdominal discomfort associated with bile duct continue escitalopram higher doses were not effective has had adverse reactions from multiple medications in the past continue Lamictal no evidence of adverse effects from lorazepam no evidence of diversion or overuse Medications: New dicyclomine 20 mg PO QID linaclotide (Linzess) 145 mcg PO DAILY fluticasone propionate 50 mcg/actuation sprays intranasal Refilled escitalopram oxalate 5 mg PO DAILY 90 tabs 0RF Counseling and coordination of Care Details: I spent [] minutes reviewing the record, seeing the patient and documenting in the medical record. Counseling provided to the patient/caregiver as outlined below. Addressed patient/caregiver concerns regarding current medication regime including effective adherence. Addressed patient/caregiver concerns regarding diagnosis and prognosis including accuracy of diagnosis, prognosis over time, impact of diagnosis. Addressed patient/caregiver concerns regarding impact of recent stressors. [facility] Medical History Generalized anxiety disorder Major depression, recurrent, chronic CAD (coronary artery disease) Hyperlipidemia Bladder cancer Family history of premature coronary artery disease HTN (hypertension) Paroxysmal atrial fibrillation Surgical History History of colonoscopy History of 2 sections History of partial hysterectomy History of right inguinal hernia repair (2003) History of cholecystectomy S/P cardiac cath History of hip surgery Family History Father CAD (coronary artery disease) Mother HTN (hypertension) Cancer Brother HTN (hypertension) Sister HTN (hypertension) Paternal Grandmother Stroke Paternal Grandfather CAD (coronary artery disease) Paternal Uncle CAD (coronary artery disease) Maternal Grandmother Colon cancer Maternal Aunt Colon cancer Social History Household Members: Spouse and Children Housing: Residential Do you presently have visiting nurse or other home services: No Alcohol intake: former Patient Tobacco Use Status: Never used Tobacco Substance Use Type: Marijuana service: Yes Social History: pt on ssd has 4 daughters 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
== END 2024-03-01 13:23 | disposition home or self-care (01) ==
LOC: HO.HOP 12:08
PROVIDERS: PCP Internal Medicine Medical Oncology; Visit Provider Psychiatry & Neurology Psychiatry
DX: F43.10 Post-traumatic stress disorder, unspecified (principal); F32.5 Major depressive disorder, single episode, in full remission; F41.1 Generalized anxiety disorder
CPT/HCPCS: 99214

== ENCOUNTER → 2024-03-01 12:08 | Outpatient (BNVA) | payer MEDICARE, MEDICAID, SELFPAY | PROVIDERS: PCP Internal Medicine Medical Oncology; Visit Provider Psychiatry & Neurology Psychiatry | DX: F32.5 Major depressive disorder, single episode, in full remission (principal); F43.10 Post-traumatic stress disorder, unspecified; F41.1 Generalized anxiety disorder | CPT/HCPCS: 99212 ==

== ENCOUNTER 2024-03-31 13:38 | Outpatient (REF) | payer MEDICARE, MEDICAID, SELFPAY ==
[2024-03-31 14:22] LABS: Appearance Urine Clear; Color Urine Yellow; Glucose Urine UA Negative (Negative); Leukocyte Esterase Urine Trace (Negative); Nitrite Urine Negative (Negative); PH 6.5 (5.0-9.0); Specific Gravity - Urine <= 1.005 (1.005-1.025); UMIC TRIGGER UA YES; Urine Blood Negative (Negative); Urine Ketones Negative (Negative); Urine Protein Negative (Neg-Trace)
[2024-03-31 14:36] LABS: Bacteria Urine None Seen (None Seen); Hyaline Casts Urine 0-2 /LPF (0-2); RBC Urine 0-2 /HPF (0-2); Squamous Epithelial Cell Urine 0-2 /HPF (0-2); WBC Urine 0-5 /HPF (0-5)
== END 2024-03-31 13:39 | disposition home or self-care (01) ==
LOC: HO.LNP 13:38
PROVIDERS: Visit Provider Internal Medicine Medical Oncology
DX: R31.29 Other microscopic hematuria (principal)
CPT/HCPCS: 81001; 81003; 87086

== ENCOUNTER 2024-06-07 14:03 | Outpatient (AMB) | payer MEDICARE, MEDICAID, SELFPAY ==
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
== END 2024-06-07 14:45 | disposition home or self-care (01) ==
LOC: HO.HOP 14:03
PROVIDERS: PCP Internal Medicine Medical Oncology; Visit Provider Psychiatry & Neurology Psychiatry
DX: F33.9 Major depressive disorder, recurrent, unspecified (principal); F41.1 Generalized anxiety disorder; F43.10 Post-traumatic stress disorder, unspecified
CPT/HCPCS: 90833; 99213

== ENCOUNTER → 2024-06-07 14:03 | Outpatient (BNVA) | payer MEDICARE, MEDICAID, SELFPAY | PROVIDERS: PCP Internal Medicine Medical Oncology; Visit Provider Psychiatry & Neurology Psychiatry | DX: F33.9 Major depressive disorder, recurrent, unspecified (principal); F41.1 Generalized anxiety disorder; F43.10 Post-traumatic stress disorder, unspecified | CPT/HCPCS: 99212 ==

== ENCOUNTER 2024-06-17 12:50 | Outpatient (AMB) | payer MEDICARE, MEDICAID, SELFPAY ==
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
== END 2024-06-17 15:14 | disposition home or self-care (01) ==
LOC: HO.HOP 12:50
PROVIDERS: PCP Internal Medicine Medical Oncology; Visit Provider Psychiatry & Neurology Psychiatry
DX: F33.9 Major depressive disorder, recurrent, unspecified (principal); F41.1 Generalized anxiety disorder; F43.10 Post-traumatic stress disorder, unspecified
CPT/HCPCS: 99214

== ENCOUNTER → 2024-06-17 12:50 | Outpatient (BNVA) | payer MEDICARE, MEDICAID, SELFPAY ==
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
== END ==
PROVIDERS: PCP Internal Medicine Medical Oncology; Visit Provider Psychiatry & Neurology Psychiatry
DX: F32.A Depression, unspecified (principal); F41.9 Anxiety disorder, unspecified; Z71.89 Other specified counseling
CPT/HCPCS: 99212; 99499

== ENCOUNTER 2024-09-09 13:05 | Outpatient (REF) | payer MEDICARE, MEDICAID, SELFPAY ==
[2024-09-09 13:48] LABS: Appearance Urine Clear; Color Urine Orange; PH 5.5 (5.0-9.0); Specific Gravity - Urine >= 1.030 (1.005-1.025); UMIC TRIGGER UA YES
[2024-09-09 14:01] LABS: Bacteria Urine Trace (None Seen); Hyaline Casts Urine 0-2 /LPF (0-2); RBC Urine >20 /HPF (0-2); Squamous Epithelial Cell Urine 0-2 /HPF (0-2)
== END 2024-09-09 13:06 | disposition home or self-care (01) ==
LOC: HO.LAB 13:05
PROVIDERS: PCP Internal Medicine Medical Oncology; Visit Provider Internal Medicine Medical Oncology
DX: C67.9 Malignant neoplasm of bladder, unspecified (principal); N30.00 Acute cystitis without hematuria
CPT/HCPCS: 81001; 87086

== ENCOUNTER 2024-10-12 15:19 | Outpatient (AMB) | payer MEDICARE, MEDICAID, SELFPAY ==
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
--- OUTSIDE RECORDS SUMMARY | 2024-10-12 16:16 | XMS_ITS ---
Author Organization Zackery Gallardo III, MD Address [address] [place] [address] Care Team Providers Care Curriculum Writer Name Role Phone Zackery Gallardo Primary Care Provider REASON FOR VISIT Message Social History Sex Assigned At : Social History Observation Description Sex Assigned At Female Encounters Encounter Location Date Provider Diagnosis Zackery Gallardo III, MD [address] [place] [address] [place] [address] 10/08/2024 Zackery Gallardo Plan Of Treatment Next Appt Details Provider Name:Zackery Gallardo, 11/03/2024 03:00:00 PM, [address] [place], [address], Provider Name:Zackery Gallardo, 04/01/2025 10:00:00 AM, [address] [place], [address], Progress Notes * Anastasia EUGENE ADOB:[birth year] (64 yo F)Acc No.[id number]:10/08/2024 Patient:Anastasia CHUN :1960???Age:64 Y???Sex:Female Address:[address] [place] [address] [place] [address] * true * Date:? Generated for Umair bullock/Cade/eTransmitting on:?10/12/2024 04:16 PM EST
--- OUTSIDE RECORDS SUMMARY | 2024-10-12 16:16 | XMS_ITS | Patient Health Record ---
Author Organization [facility] Address [address] [facility] [address] [place] [address] Care Team Providers Care Rehab Care Assistant Name Role Phone Zackery Gallardo Primary Care Provider Unavailabl e Allergies Allergen (clinical drug ingredient) Drug/Non Drug Allergy documented on EMR Reaction Allergy Type Onset Date Status cefaclor Ceclor (uncoded) Unknown Allergy Act levy amoxicillin Amoxicillin Unknown Drug Allergy Act levy pregabalin Pregabalin Unknown Drug Allergy Activ e Sulfur Unknown Drug Allergy Active doxycycline Doxycycline Unknown Drug Allergy Act levy Reason For Referral No Information Medications Medication SIG (Take, Route, Frequency, Duration) Notes Start Date End Date Status QUEtiapine Fumarate 25 MG 1 tablet at be dtime Orally Once a day Active Keflex 500 MG 1 capsule Orally jaci ry 6 hrs Active Pravastatin Sodium 40 MG 1 tablet Orally Once a day Active Escitalopram Oxalate 10 MG 1 tablet Oral ly Once a day Active Acyclovir 400 MG 1 tablet Orally Twic e a day Active amLODIPine Besylate 5 MG 1 tablet Orally Once a day Active Olmesartan Medoxomil 40 MG 1 tablet Oral ly Once a day Active traMADol HCl 50 MG 1 tablet as needed O rally four times a day Active LaMICtal 150 MG 1 tablet Orally Once a day Active Ativan 0.5 MG 1 tablet at bedtime as needed Orally Once a day Active VESIcare 10 MG 1 tablet Orally as needed Active Plan Of Treatment Pending Test Test Name Order Date Nail avulsion partial/complete 1 Insurance Providers Payer Name Payer Address Payer Phone Subscriber Number Group Number Insured Name Patient Relationship to Insured Coverage Start Date Coverage End Date [employer] [address] [address] [place] [address] [id number] Anastasia Rizvi Self - patient is the insured [facility] [employer] plans [address] [place] [address] [id number] Anastasia Rizvi Self - patient is the insured Medical (General) History Medical History History ICD Code Bladder cancer in remission Depression Hyperlipidemia Hypertension Surgical History Surgery Date(Month/Year) Left total hip arthroplasty 07/24/2020 ANURAG/BSO multiple cystoscopies with bladder wall biopsies
--- OUTSIDE RECORDS SUMMARY | 2024-10-12 16:17 | XMS_ITS | Encounter Summary ---
Author Organization [facility] Address [address] [place] [address] Care Team Providers Care Insurance Territory Manager Name Role Phone Zackery Gallardo MD Primary Care Provider Prakash Menchaca MD Unavailable [phone] Barbara Mcgarry NP Unavailable [phone] Encounter Details Date Type Department Care Team Description 05/06/2021 [facility] Medical Records [address] [place] [address] Social History Tobacco Use Types Packs/Day Years Used Date Smoking Tobacco: Never Smokeless Tobacco: Never Alcohol Use Standard Drinks/Week Comments Yes 0 (1 standard drink = 0.6 oz pur e alcohol) occasional Sex Assigned at Date Recorded Not on file Job Start Date Occupation Industry Not on file Not on file Not on file documented as of this encounter Plan of Treatment Not on file documented as of this encounter Procedures Procedure Name Priority Date/Time Associated Diagnosis Comments OUTSIDE ECHO Routine 05/07/2021 OUTSIDE PLAIN FILM Routine 05/06/2021 documented in this encounter Results * OUTSIDE ECHO (05/07/2021) Provider Abstract CARDIOLOGY * OUTSIDE PLAIN FILM (05/06/2021) Provider Abstract RADIOLOGY documented in this encounter Visit Diagnoses Not on filedocumented in this encounter Care Teams Insurance Territory Manager Relationship Specialty Start Date End Date Zackery Gallardo MD PCP - General 04/28/09 Prakash Fuentes MD [address] [place] [address] [address] [place] [address] Dietitian Teaching Cardiovascular Disease 08/14/21 Barbara Mcgarry NP [address] [place] [address] [address] [place] [address] Nurse Practitioner Cardiology 04/19/24 documented as of this encounter
--- OUTSIDE RECORDS SUMMARY | 2024-10-12 16:17 | XMS_ITS | Encounter Summary ---
Author Organization [facility] Address [address] [place] [address] Care Team Providers Care Corporate Associate Attorney Name Role Phone Zackery Gallardo MD Primary Care Provider Prakash Menchaca MD Unavailable [phone] Barbara Mcgarry NP Unavailable [phone] Encounter Details Date Type Department Care Team Description 03/02/2024 Assistant Teaching Professor Report Medical Records [address] [place] [address] Abstract, Provider Social History Tobacco Use Types Packs/Day Years [...] on file documented as of this encounter Visit Diagnoses Not on filedocumented in this encounter Care Teams Corporate Associate Attorney Relationship Specialty Start Date End Date Zackery Gallardo MD PCP - General 04/28/09 Prakash Fuentes MD [address] [place] [address] [address] [place] [address] Substance Addiction Coordinator Cardiovascular Disease 08/14/21 Barbara Mcgarry NP [address] [place] [address] [address]IVE [address] [place] [address] Nurse Practitioner Cardiology 04/19/24 documented as of this encounter
--- OUTSIDE RECORDS SUMMARY | 2024-10-12 16:17 | XMS_ITS ---
Author Organization Zackery Gallardo III, MD Address [address] [address] Care Team Providers Care Metallurgical Specialist Name Role Phone Zackery Gallardo Primary Care Provider REASON FOR VISIT Needs call back from Social History Sex Assigned At : Social History Observation Description Sex Assigned At Female Encounters Encounter Location Date Provider Diagnosis Zackery Gallardo III, MD [address] [place] [address] [place] [address] 10/11/2024 Zackery Gallardo Plan Of Treatment Next Appt Details Provider Name:Zackery Gallardo, 11/03/2024 03:00:00 PM, [address] [place] [address] [place], [address], Provider Name:Zackery Gallardo, 04/01/2025 10:00:00 AM, [address] [place] [address] [place], [address], Progress Notes * Anastasia EUGENE ADOB:[birth year] (64 yo F)Acc No.[id number]:10/11/2024 Patient:?Anastasia EUGENE :1960???Age:64 Y???Sex:Female Address:[facility] [place] [address] * * Date:?
--- OUTSIDE RECORDS SUMMARY | 2024-10-12 16:17 | XMS_ITS | Encounter Summary ---
Author Organization [facility] Address [address] [place] [address] Care Team Providers Care Skating Carhop Name Role Phone Zackery Gallardo MD Primary Care Provider Prakash Menchaca MD Unavailable [phone] Barbara Mcgarry NP Unavailable [phone] Encounter Details Date Type Department Care Team Description 01/05/2024 Orders Only Cardio [facility] [address] [place] [address] Drive [address] [place] [id number] Default, Provider Social History Tobacco Use Types Packs/Day [...] Name Priority Date/Time Associated Diagnosis Comments OUTSIDE LAB Routine 04/05/2023 documented in this encounter Results * OUTSIDE LAB (04/05/2023) Provider Default LAB documented in this encounter Visit Diagnoses Not on filedocumented in this encounter Care Teams Skating Carhop Relationship Specialty Start Date End Date Zackery Gallardo MD PCP - General 04/28/09 Prakash Fuentes MD [address] [place] [address] [address] [place], [place] [phone] Lumber Driver Cardiovascular Disease 08/14/21 Barbara Mcgarry, EVAN [address] [place] [address] [address]IVE [address] [place] [address] Nurse Practitioner Cardiology 04/19/24 documented as of this encounter
--- OUTSIDE RECORDS SUMMARY | 2024-10-12 16:17 | XMS_ITS | Encounter Summary ---
Author Organization [facility] Address [address] [place] [address] Care Team Providers Care Lacer And Tier Name Role Phone Zackery Gallardo MD Primary Care Provider Prakash Menchaca MD Unavailable [phone] Barbara Mcgarry NP Unavailable [phone] Encounter Details Date Type Department Care Team Description 05/23/2021 [facility] Medical Records [address] [place] [address] Reid Ndiaye MD Social History Tobacco Use Types Packs/Day Years [...] Name Priority Date/Time Associated Diagnosis Comments OUTSIDE STRESS TEST Routine 05/23/2021 documented in this encounter Results * OUTSIDE STRESS TEST (05/23/2021) Provider Default CARDIOLOGY documented in this encounter Visit Diagnoses Not on filedocumented in this encounter Care Teams Lacer And Tier Relationship Specialty Start Date End Date Zackery Gallardo MD PCP - General 04/28/09 Prakash Fuentes MD [address] [place] [address] [address] [place] [address] Environmental Studies Faculty Member Cardiovascular Disease 08/14/21 Barbara Mcgarry, EVAN [address] [place] [address] [address] [place] [address] Nurse Practitioner Cardiology 04/19/24 documented as of this encounter
--- OUTSIDE RECORDS SUMMARY | 2024-10-12 16:17 | XMS_ITS | Encounter Summary ---
Author Organization [facility] Address [address] [place] [address] Care Team Providers Care General Passenger Agent Name Role Phone Zackery Gallardo MD Primary Care Provider Prakash Menchaca MD Unavailable [phone] Barbara Mcgarry NP Unavailable [phone] Reason for Visit * Reason Comments E-prescribe Rx Request Encounter Details Date Type Department Care Team Description 04/08/2020 Refill Physiatry - [place] [address] [place] [address] Daniel Figueroa DO E-prescribe Rx Request Social History Tobacco Use Types Packs/Day Years Used Date Smoking Tobacco: Never Smokeless Tobacco: Never Alcohol Use Standard Drinks/Week Comments Yes 0 (1 standard drink = 0.6 oz pur e alcohol) occasional Sex Assigned at Date Recorded Not on file Job Start Date Occupation Industry Not on file Not on file Not on file documented as of this encounter Miscellaneous Notes * Telephone Encounter - Laurel Crooks M.A. - 04/10/2020 9:11 AM EDT Last ov 11/09/19 Last refill 11/02/19 No future ov documented in this encounter Plan of Treatment Not on file documented as of this encounter Visit Diagnoses Diagnosis Left hip pain Pain in joint, pelvic region and thigh documented in this encounter Care Teams General Passenger Agent Relationship Specialty Start Date End Date Zackery Gallardo MD PCP - General 04/28/09 Prakash Fuentes MD [address] [place] [address] [address] [place] [address] Train Brake Operator Cardiovascular Disease 08/14/21 Barbara Mcgarry NP [address] [place] [address] [address] [place] [address] Nurse Practitioner Cardiology 04/19/24 documented as of this encounter
--- OUTSIDE RECORDS SUMMARY | 2024-10-12 16:17 | XMS_ITS | Encounter Summary ---
Author Organization [facility] Address [address] [place] [address] Care Team Providers Care Heater Room Helper Name Role Phone Zackery Gallardo MD Primary Care Provider Prakash Menchaca MD Unavailable [phone] Barbara Mcgarry NP Unavailable [phone] Reason for Visit * Reason Onset Date Comments Weight Gain 03/05/2024 Encounter Details Date Type Department Care Team Description 03/05/2024 Telephone Cardio P[facility] [address] [place] [address] Prakash Fuentes MD [address] [place] [address] Weight Gain Social History Tobacco Use Types Packs/Day Years [...] encounter Miscellaneous Notes * Telephone Encounter - Kika Bowers - 03/23/2024 11:27 AM EDT Patient added to cancellation list to try and move up her appointment. * Telephone Encounter - Rosi Pozo R.N. - 03/05/2024 4:26 PM EDT I spoke with pt, recommended seeing PCP for now as she does not have a history of heart failure. Michael work on arranging her a sooner apt than the one presently scheduled in April. She verbalized understanding and expressed gratitude. * Telephone Encounter - Prakash Fuentes MD - 03/05/2024 4:22 PM EDT Patient does not have a history of heart failure. Uncertain as to what is going on. She is in need to be seen. She has never been on diuretics she can either be seen in triage with us or go to her primary care * Telephone Encounter - Rosi Pozo R.N. - 03/05/2024 1:33 PM EDT I spoke with pt this afternoon. She reports on Friday 03/02 she underwent an ERCP procedure with Dr. Velasquez. She says since the procedure her weight has gone up 7 lbs and she is having swelling in her feet and ankles. She denies shortness of breath but has not been that active. She has not had much of an appetite, eating mainly chicken broth, zeyad birgit, fish, did try salad but that did not go well with her. She says she spoke with the GI and was told weight gain and swelling not from procedure and to contact surgical supervisor. Last visit here May 2022, presently scheduled to see Barbara 04/19. * Telephone Encounter - Lsia Herrera - 03/05/2024 11:46 AM EDT Patient calling, she had gotten a ERCP done on 03/02/24. After getting that done, she started retaining fluid in both her legs, feet, and a little bit in both her hands. She says she went from 173 before surgery to 179 today. She has not been eating a lot so she knows the weight gain isn't from eating. Please advise. documented in this encounter Plan of Treatment Not on file documented as of this encounter Visit Diagnoses Not on filedocumented in this encounter Care Teams Heater Room Helper Relationship Specialty Start Date End Date Zackery Gallardo MD PCP - General 04/28/09 Prakash Fuentes MD [address] [place] [address] [address] [place] [address] Asl Interpreter Cardiovascular Disease 08/14/21 Barbara Mcgarry NP [address] [place] [address] [address] [place], [place] [id number] Nurse Practitioner Cardiology 04/19/24 documented as of this encounter
--- OUTSIDE RECORDS SUMMARY | 2024-10-12 16:17 | XMS_ITS | Encounter Summary ---
Author Organization [facility] Address [address] [place] [address] Care Team Providers Care Rinkman Name Role Phone Zackery Gallardo MD Primary Care Provider Prakash Menchaca MD Unavailable [phone] Barbara Mcgarry NP Unavailable [phone] Encounter Details Date Type Department Care Team Description 02/29/2020 [facility] Medical Records [address] [place], [place] [id number] [place] [address] Social History Tobacco Use Types Packs/Day Years [...] Date/Time Associated Diagnosis Comments OUTSIDE ECHO Routine 02/29/2020 documented in this encounter Results * OUTSIDE ECHO (02/29/2020) Provider Abstract CARDIOLOGY documented in this encounter Visit Diagnoses Not on filedocumented in this encounter Care Teams Rinkman Relationship Specialty Start Date End Date Zackery Gallardo MD PCP - General 04/28/09 Prakash Fuentes MD [address] [place] [address] DRIVE [address] [place] [address] Pourer Metal Cardiovascular Disease 08/14/21 Barbara Mcgarry EVAN [address] [place] [address] DRIVE [address] [place] [address] Nurse Practitioner Cardiology 04/19/24 documented as of this encounter
--- OUTSIDE RECORDS SUMMARY | 2024-10-12 16:17 | XMS_ITS | Encounter Summary ---
Author Organization [facility] Address [address] [place] [address] Care Team Providers Care Certified Phlebotomy Technician Name Role Phone Zackery Gallardo MD Primary Care Provider Prakash Menchaca MD Unavailable [phone] Barbara Mcgarry NP Unavailable [phone] Encounter Details Date Type Department Care Team Description 05/04/2021 [facility] Medical Records [address] [place] [address] Abstract, Provider Social History Tobacco Use Types [...] Date/Time Associated Diagnosis Comments OUTSIDE LAB Routine 05/04/2021 documented in this encounter Results * OUTSIDE LAB (05/04/2021) Provider Default LAB documented in this encounter Visit Diagnoses Not on filedocumented in this encounter Care Teams Certified Phlebotomy Technician Relationship Specialty Start Date End Date Zackery Gallardo MD PCP - General 04/28/09 Prakash Fuentes MD [address] [place] [address] [address] [place] [address] House Decorator Cardiovascular Disease 08/14/21 Barbara Mcgarry, EVAN [address] [place] [address] DRIVE [address] [place] [address] Nurse Practitioner Cardiology 04/19/24 documented as of this encounter
--- OUTSIDE RECORDS SUMMARY | 2024-10-12 16:17 | XMS_ITS | Continuity of Care Document ---
Author Organization [place] - [facility] Address [address] [place] [address] Care Team Providers Care Electrical Design Engineer Name Role Phone EMILY RAMIRES Referring Provider Assessment Encounter Date Assessment Date Assessment LastModified by Organization Details LastModified Time 10/11/2024 10/11/2024 Assessment: Fair tolerance to all light stretching/stre ngthening performed today. TTP w/ localized px proximal/medial calf. + Homans sigh, tasked Totals triage for US appointment. Plan: Continue PT @ 2x/wk for 8 weeks to decrease pain, increase ROM, optimize mechanics for functional mobility with gait and stairs, and facilitate independence with functional ADL's. [email or web address] Not available 10/11/2024 12:54:43 Plan of Treatment Reminders Order Date Submit Date Provider Last Modified By Organization Details Last Modified Time Details Appointments POST OP 15 2024 03:00P M Andrew Agee PA-C Not available Not available Not available PT FOLLOW-U P 2024 11:00A M Jin Calvillo s, DPT Not available Not available Not available PT FOLLOW-U P 2024 11:00A M Abbi Pressley, NEW CAR [employer] READY MECHANIC Not available Not available Not available PT FOLLOW-U P 2024 11:00A M Abbi Lawsone, NEW CAR MAKE READY MECHANIC Not available Not available Not available PT FOLLOW-U P 2024 11:00A M Abbi Lawsone, NEW CAR MAKE READY MECHANIC Not available Not available Not available PT FOLLOW-U P 2024 11:00A M Abbi Lawsone, NEW CAR MAKE READY MECHANIC Not available Not available Not available POST OP 15 2024 01:30P M Shane Gu PA-C Not available Not available Not available PT FOLLOW-U P 2024 11:00A M Jin Calvillo s, DPT Not available Not available Not available PT FOLLOW-U P 2024 11:00A M Abbi Pressley, NEW CAR MAKE READY MECHANIC Not available Not available Not available PT FOLLOW-U P 2024 11:00A M Abbi Pressley, NEW CAR MAKE READY MECHANIC Not available Not available Not available PT FOLLOW-U P 2024 11:00A M Jin Calvillo s, DPT Not available Not available Not available PT FOLLOW-U P 2024 11:00A M Jin munroe, DPT Not available Not available Not available RECHECK 10 2024 02:20P M Tao Choe MD Not available Not available Not available Lab None recorded . Referral None recorded . Procedures None recorded . Surgeries None recorded . Imaging None recorded . Medication Orders None recorded . Patient TargetsNo targets recorded. Patient InstructionsNo instructions recorded. Reason for Referral None Reported. Results Created Date Observation Date Name Description Value Unit Range Abnormal Flag Note LastModifiedBy Organization Detail LastModifiedTime 10/11/19 25 10/11/2024 US, kristen x, shiraz s, [facility] No observ ation record ed. [facility] [address] [place], [address], 10/11/2024 17:40:27 10/12/19 25 10/12/2024 XR, knee, 3 view http:/ [email or web address] ?Encry pted=s hAaTro YD8dLq bEUv6g %2BXZw aYqtaq 0bqfl% 2Fg9IQ a4ajBk vP9nXo QUaueC m3YtLR FvZlgJ JJ8mAn HZtai3 6p6023 AC0Kqb H2NVqa lKiQtr MwF INTERFACE [facility] [address] [address], [place], [address], 10/12/2024 15:33:17 10/12/19 25 10/12/2024 XR, knee, 3 view http:/ [email or web address] ?Encry pted=s hAaTro YD8dLq bEUv6g %2BXZw aYqtaq 0bqfl% 2Fg9IQ a4ajBk vP9nXo QUaueC m3YtLR FvZlgJ JJ8mAn HZtai3 5u2680 AC0Kqb H2NVqa lKiQtr MwF INTERFACE [facility] [address], [place], [address], 10/12/2024 15:33:19 Result Notes None recorded. Problems Name Problem SNOMED Code Status Onset Date Resolution Date Notes Provider Name and Address Organization Details Recorded Time Pain of right knee joint 2351462158092 00 Active 2023 SEAN mccain [facility] 4 10:49:35 Osteoarthri tis of right knee joint 8324370021713 00 Active 2024 SEAN mccain [facility] 5 17:51:10 Osteoarthri tis of knee 103204924 Active 2023 ARAM mccain [facility] 4 11:53:49 Pain in right hip joint 0547396951954 02 Active 2023 ARAM DAVIS [facility] 4 09:56:49 Problem Notes None recorded. Procedures Surgical History Date Name Laterality Status Provider Name and Address Organization Details Recorded Time 10/11/19 38862 Therapeutic Exercise (1:1) completed Jin Patel DPT [address], [place], [address], [facility] 10/11/2024 12:50:48 10/11/19 40630: Manual therapy completed Jin Patel DPT [address], [place], [address], [facility] 10/11/2024 12:51:11 10/07/19 43068 Therapeutic Exercise (1:1) completed Jin Harmankishaneka, DPT [address], [place], [address], [facility] 10/11/2024 08:53:32 10/07/19 25 40145: Low complexity PT Eval completed Jin Patel, DPT [address], [place], [address], [facility] 10/11/2024 08:53:35 10/07/19 25 G8417 BMI Above Upper Parameters, F/U Documented completed Jin Patel, DPT [address], [place], [address], [facility] 10/11/2024 08:54:08 10/07/19 25 G8427 Current Medication Documented completed Jin Patel, DPT [address], [place], [address], [facility] 10/11/2024 08:54:11 08/24/20 24 84690 Therapeutic Exercise (1:1) completed Jesus Pyser, PT [address], [place], [address], [facility] 08/23/2024 21:18:27 08/24/20 24 22693: Low complexity PT Eval completed Jesus Pyser, PT [address], [place], [address], [facility] 08/23/2024 21:18:30 08/24/20 24 G8417 BMI Above Upper Parameters, F/U Documented completed Jesus Pyser, PT [address], [place], [address], [facility] 08/24/2024 12:03:11 08/24/20 24 G8427 Current Medication Documented completed Jesus Pyser, PT [address], [place], [address], [facility] 08/24/2024 12:03:16 02/11/20 24 JZKNEE INJ completed ARAM DAVIS [facility] 02/09/2024 11:53:49 04/22/20 21 Cardiovascular Surgery completed SEAN MIQUEL [facility] 05/27/2024 10:41:18 04/22/20 21 Stent completed SEAN MIQUEL [facility] 05/27/2024 10:41:18 07/17/20 20 Hip Surgery completed SEAN MIQUEL [facility] 05/27/2024 10:41:18 04/15/19 89 Knee Surgery completed SEAN RODRIGUEZE [facility] 05/27/2024 10:41:18 02/13/19 89 Head or Neck Surgery completed SEAN MIQUEL [facility] 05/27/2024 10:41:18 Imaging Results None recorded. Procedure Notes None recorded. Medical Equipment None Reported. Allergies Allergen ID Allergen Name Allergen Category Reaction Reaction Severity Criticality Documentation Date Start Date Code Code System Note Provider Name and Address Organization Details Recorded Time 43340 Ceclor medicatio n Not available Not available Not available 11/17/20232021 36763 5 RxNorm Not Available [facility] 4 13:27:29 91895 doxycycli ne hyclate medicatio n Not available Not available Not available 11/17/20232021 86184 RxNorm Not Available [facility] 4 13:27:29 82009 amoxicill in trihydrat e medicatio n Not available Not available Not available 11/17/20232021 91077 8 RxNorm Not Available [facility] 4 13:27:29 38367 Substance with sulfonami de structure and antibacte rial mechanism of action (substanc e) medicatio n Not available Not available Not available 11/17/20232021 81652 8003 SNOMED Not Available [facility] 4 13:27:29 Medications Name Sig Start Date Stop Date Status Note LastModified by Organization Details LastModified Time carisoprodo l 350 mg tablet TAKE 1 TABLET BY MOUTH THREE TIMES A DAY active Not Available Not Available No t Available cyclobenzap rine 10 mg tablet TAKE 1 TABLET BY MOUTH THREE TIMES A DAY FOR 30 DAYS active Not Available Not Available No t Available lamotrigine 150 mg tablet TAKE 1 TABLET EVERY DAY active Not Available Not Available No t Available prednisone 10 mg tablet PLEASE SEE ATTACHED FOR DETAILED DIRECTION S 05/21 completed Not Available Not Available Not Available cetirizine 10 mg tablet FILL 08/08/24* *TAKE 1 TABLET BY MOUTH EVERY DAY DIRECTED active Not Available Not Available No t Available azithromyci n 250 mg tablet TAKE 2 TABLETS BY MOUTH TODAY, THEN TAKE 1 TABLET DAILY FOR 4 DAYS DIRECTED 02/10 completed Not Available Not Available Not Available tizanidine 4 mg tablet 05/21 completed Not Available Not Available Not Available meloxicam 15 mg tablet TAKE 1 TABLET BY MOUTH EVERY DAY active Not Available Not Available No t Available sucralfate 1 gram tablet TAKE 1 TABLET BY MOUTH 4 TIMES A DAY FOR 14 DAYS. TAKE ON AN EMPTY STOMACH. 05/21 completed Not Available Not Available Not Available ondansetron HCl 4 mg tablet TAKE 1 TABLET ORALLY EVERY SIX HOURS NEEDED FOR NAUSEA FOR 7 DAYS active Not Available Not Available No t Available amlodipine 2.5 mg tablet TAKE 1 TABLET BY MOUTH EVERY DAY 05/21 completed Not Available Not Available Not Available amlodipine 5 mg tablet TAKE 1 TABLET BY MOUTH EVERY DAY active Not Available Not Available No t Available ciprofloxac in 500 mg tablet TAKE 1 TABLET BY MOUTH EVERY 12 HOURS FOR 10 DAYS 02/10 completed Not Available Not Available Not Available tramadol 50 mg tablet TAKE 1 TO 2 TABLETS BY MOUTH EVERY 6 HOURS NEEDED FOR MILD PAIN. DO NOT EXCEED 8 TABLETS (400MG) PER DAY. active Not Available Not Available No t Available lorazepam 0.5 mg tablet TAKE 1 TABLET BY MOUTH 3 TIMES A DAY NEEDED FOR ANXIETY active Not Available Not Available No t Available metoclopram cheyenne 5 mg tablet TAKE 1 TABLET ORALLY 3 TIMES PER DAY WITH MEALS 05/21 completed Not Available Not Available Not Available dicyclomine 20 mg tablet TAKE 1 TABLET BY MOUTH 4 TIMES A DAY,X30 DAYS 05/27 completed Not Available Not Available Not Available meclizine 25 mg tablet TAKE 1 TABLET BY MOUTH NEEDED 3 TIMES A DAY X 10 DAYS active Not Available Not Available No t Available cephalexin 500 mg capsule TAKE 1 CAPSULE BY MOUTH FOUR TIMES A DAY FOR 7 DAYS active Not Available Not Available No t Available pantoprazol e 40 mg tablet,cm yed release TAKE 1 TABLET BY MOUTH 30 MINUTES TO 1 HOUR BEFORE MORNING MEAL ONCE DAILY FOR 30 DAYS active Not Available Not Available No t Available magnesium citrate oral solution DRINK 150 ML ORALLY 2 TIMES A DAY NEEDED FOR CONSTIPAT ION 02/10 completed Not Available Not Available Not Available estradiol 0.01% (0.1 mg/gram) vaginal cream INSERT 1 GRAM VAGINALLY ONCE DAILY FOR 2 WEEKS THEN TWICE WEEKLY active Not Available Not Available No t Available fluticasone propionate 50 mcg/actuati on nasal spray,suspe nsion SPRAY 2 SPRAYS INTO EACH NOSTRIL EVERY DAY active Not Available Not Available No t Available dicyclomine 10 mg capsule TAKE 1 CAPSULE BY MOUTH 3 TIMES A DAY 2023 active Not Available Not Available Not Avai lable diazepam 5 mg tablet TAKE 1 TABLET BY MOUTH TWO HOURS BEFORE PROCEDURE , MAY REPEAT ONE HOUR BEFORE PROCEDURE active Not Available Not Available No t Available oxycodone 5 mg tablet TAKE 1 TO 2 TABLETS BY MOUTH EVERY 4 HOURS NEEDED FOR SEVERE PAIN active Not Available Not Available No t Available olmesartan 40 mg tablet TAKE 1 TABLET BY MOUTH EVERY DAY active Not Available Not Available No t Available rosuvastati n 40 mg tablet TAKE 1 TABLET BY MOUTH EVERY DAY FOR 30 DAYS active Not Available Not Available No t Available escitalopra m 5 mg tablet TAKE 1 TABLET BY MOUTH EVERY DAY active Not Available Not Available No t Available dexlansopra zole 60 mg capsule,bip hase delayed release TAKE 1 CAPSULE BY MOUTH EVERY DAY FOR 90 DAYS 05/21 completed Not Available Not Available Not Available Linzess 145 mcg capsule TAKE 1 CAPSULE BY MOUTH EVERY DAY active Not Available Not Available No t Available Linzess 290 mcg capsule TAKE 1 CAPSULE BY MOUTH EVERY DAY active Not Available Not Available No t Available Vitals None Recorded Social History Question Answer Notes LastModified by Organizat ion Details LastModified Time Tobacco Smoking Status Never Smoker SEAN mccain [place] - [facility] 05/27/2024 10:41:12 How Many Times Per Week Do You Consume Alcohol? 1-2 Times Per Week Information not available 05/27/2024 Do You Or Have You Ever Used E-cigarettes Or Vape? Never Used Electronic Cigarettes Information not available 05/27/2024 When Did You Quit Smoking? 16+yearssincel marion Information not available 05/27/2024 What Is Your Relationship Status? Information not available 05/27/2024 Do You Use Any Illicit Or Recreational Drugs? Yes Information not available 05/27/2024 How Many Years Have You Smoked Tobacco? 0 Information not available 05/27/2024 Do You Or Have You Ever Used Any Other Forms Of Tobacco Or Nicotine? No Information not available 05/27/2024 Sex: Unknown Functional Status None recorded. Mental Status None recorded. Family History Nothing Reported. Medical History Condition Response Allergies/Hayfever Y Coronary Artery Disease Y Anxiety/Depression Y Kidney/Bladder Problems Y Heart Disease Y Cancer Y Hypertension Y Gynecological HistoryNo gynecological history recorded. Obstetrics History GPAL:G 0 P 0 0 0 0 Past Encounters Encounter ID Performer Location Encounter Start Date Encounter Closed Date Diagnosis/Indication Diagnosis SNOMED-CT Code Diagnosis ICD10 Code Diagnosis Note [id number] JEANNE Hoffmann [address] [place] [address] 09/20/2024 09:55:09 10/06/2024 04:05:52 [id number] MD [facility] [address] [place] [address] 10/07/2024 13:26:30 10/07/2024 17:55:05 History of right total knee replacement [id number] 239158 Z96.651 Z47.1 [id number] SER[facility] [address] [place] [address] 10/11/2024 10:59:38 10/11/2024 12:12:14 History of right total knee replacement [id number] 293441 Z96.651 Z47.1 Health Concerns Section Related Observation LastModified by Organization Detai ls LastModified Time None Recorded Concern Status LastModified by Organization Details LastModified Time None Recorded Payers Encounter Date Sequence Insurance Name Policy Number Policy Stallings Covered Member ID Stallings Member ID Guarantor Name 10/11/2024 1 [place] [employer] Anastasia Rizvi [id number] Anastasia Rizvi 10/11/2024 2 [place] [id number] Anastasia Rizvi [id number] Anastasia Rizvi Notes Date Note Type Note Provider Name and Address Organization Details Recorded Time 10/11/2024 text/html Pt reports 03/24 px coming in today. Notes px along proximal aspect of calf near posterior joint line Jin Patel, DPT [address], [place], [address], [place] - [facility] 10/11/2024 12:54:54 OBGyn Episode No OBEpisode recorded.
--- OUTSIDE RECORDS SUMMARY | 2024-10-12 16:17 | XMS_ITS ---
Author Organization [facility] Address [address] [place] [address] Care Team Providers Care Concentrator Operator Name Role Phone Zackery Gallardo MD Primary Care Provider Unavailab Zackery Rowan Unavailable [phone] REASON FOR VISIT wants appt Encounters Encounter Location Date Provider Diagnosis [facility] [address] [place] [address] 05/27/2023 Zackery Mehta PLAN OF TREATMENT No Information
--- OUTSIDE RECORDS SUMMARY | 2024-10-12 16:17 | XMS_ITS ---
Author Organization Zackery Gallardo III, MD Address [address] [place] [address] Care Team Providers Care Roller Coaster Engineer Name Role Phone Zackery Gallardo Primary Care Provider Allergies Allergen (clinical drug ingredient) Drug/Non Drug Allergy documented on EMR Reaction Allergy Type Onset Date Status cefaclor Cefaclor Unknown Drug Allergy Active doxycycline Doxycycline Unknown Drug Allergy Act levy Sulfur Unknown Drug Allergy Active pregabalin Pregabalin Unknown Drug Allergy Activ e amoxicillin Amoxicillin Unknown Drug Allergy Act levy REASON FOR VISIT Right knee replacement October 01, 2024, Elevated blood pressure after surgery, Bilateral tinnitus,Hypertension, Coronary artery disease, Bladder cancer, Paroxysmal atrial fibrillation Medications Medication SIG (Take, Route, Frequency, Duration) Notes Start Date End Date Status Linzess 145 MCG 1 capsule at least 30 minutes before the first meal of the day on an empty stomach Orally Once a day Active Cetirizine HCl 10 MG 1 tablet Orally Onc e a day Active OxyCONTIN 15 MG 1 tablet Orally as needed for stomach pain Active Dexilant 30 MG 1 capsule Orally Once a day Active Gaviscon 95-358 MG/15ML 15 mL after meal s and at bedtime as needed Orally Four times a day Active Carafate 1 GM 1 tablet on an empty stomach Orally Twice a day Active Meclizine HCl 25 MG 1 tablet as needed Orally 3 times a day 03/06/2022 Active Ativan 0.5 MG 1 tablet at bedtime as needed Orally Once a day Active Acyclovir 400 MG 1 tablet Orally Twice a day 04/13/2019 Active Olmesartan Medoxomil 40 MG 1 tablet Orally Once a day Active VESIcare 10 MG 1 tablet Orally Once a day Active LaMICtal 150 MG 1 tablets Orally twice a day 03/06/2016 Active Escitalopram Oxalate 5 MG 1 tablet Orall y Once a day Active Pravastatin Sodium 20 MG 1 tablet Orally Once a day 01/06/2019 Active amLODIPine Besylate 5 MG 1 tablet Orally Once a day 11/13/2020 Active Rosuvastatin Calcium 40 MG TAKE 1 TABLET BY MOUTH EVERY DAY FOR 30 DAYS Active Ondansetron HCl 4 MG TAKE 1 TABLET ORALL Y EVERY SIX HOURS NEEDED FOR NAUSEA FOR 7 DAYS Active Pantoprazole Sodium 40 MG 1 tablet 1/2 t o 1 hour before morning meal Orally Once a day 09/24/2024 Active Dexlansoprazole 60 MG TAKE 1 CAPSULE BY MOUTH EVERY DAY FOR 90 DAYS Active oxyCODONE HCl 5 MG 1 capsule as needed Orally every 6 hrs 2.5 mg daily 09/02/2024 Active Social History Tobacco Use: Social History Observation Description Date Details (start date - stop date) Never Smoker NA - NA Sex Assigned At : Social History Observation Description Sex Assigned At Female Tobacco Use/Smoking Question Answer Notes Patient is a nonsmoker Additional Findings: Tobacco Non-User Aggressive non-smoker Problems Problem Type SNOMED Code ICD Code Onset Dates Problem Status W/U Status Risk Notes Problem Cervical radiculopathy (79609831) Radiculopathy, cervical region (M54.12) Active confirmed The pain in her neck with range of motion is present but mild at this time. It is now one of her major complaints. She will continue current therapy. Problem [id number] Anticoagulated (Z79.01) Active confirmed She has had no bleeding. She is currently in sinus rhythm. Encounters Encounter Location Date Provider Diagnosis Zackery Gallardo III, MD [address] [place] [address] [place] [address] 10/05/2024 Zackery Riosne Status post right kn ee replacement Z96.651 ; Essential (primary) hypertension I10 ; Bladder cancer C67.9 ; Radiculopathy, cervical region M54.12 ; Anticoagulated Z79.01 ; Mixed hyperlipidemia E78.2 ; Depressive disorder, not elsewhere classified F32.9 and Overweight E66.3 Assessments Encounter Date Diagnosis (ICD Code) Assessment Notes Treat ment Notes Treatment Clinical Notes 10/05/2024 Status post right knee replacement (ICD-10 - Z96.651) She is 4 days postoperative. She continues to have significant pain. She says she has an adequate amount of pain medication. There seems to be no infection in the incision. She has a follow-up appointment with orthopedics as well as physical therapy. 10/05/2024 Essential (primary) hypertension (ICD-10 - I10) Her blood pressure is stable. It will be checked again in the near future. No change in her meedications was made.She reports that her blood pressure was as high as 174 systolic in the orthopedic office. She will check her own blood pressure herself as well as with the physical therapist and report back to me. If necessary her medications will be adjusted. 10/05/2024 Bladder cancer (ICD-10 - C67.9) She is up-to-date with urology. Her urologist after the last cystoscopy toes are she was in remission. 10/05/2024 Radiculopathy, cervical region (ICD-10 - M54.12) The pain in her neck with range of motion is present but mild at this time. It is now one of her major complaints. She will continue current therapy. 10/05/2024 Anticoagulated (ICD-10 - Z79.01) She has had no bleeding. She is currently in sinus rhythm. 10/05/2024 Mixed hyperlipidemia (ICD-10 - E78.2) Her blood work reveals a fasting lipid profile has been ordered prior to her next visit. 10/05/2024 Depressive disorder, not elsewhere classified (ICD-10 - F32.9) She continues to struggle with anxiety and depression in addition to the epigastric discomfort with eating. She was given emotional support today.She has requested a report be sent to the [employer] concerning her mental illness. 10/05/2024 Overweight (ICD-10 - E66.3) She has gained 3 pounds in her body mass index is 29.9. We made a plan to lose weight at a rate of one half of a pound per week through a diet restricted in calories. Plan Of Treatment Medication Medication Name Sig Start Date Stop Date Notes Linzess 145 MCG 1 capsule at least 3 0 minutes before the first meal of the day on an empty stomach Orally Once a day Cetirizine HCl 10 MG 1 tablet Orally Onc e a day OxyCONTIN 15 MG 1 tablet Orally as needed for stomach pain Dexilant 30 MG 1 capsule Orally Onc e a day Gaviscon 95-358 MG/15ML 15 mL after meal s and at bedtime as needed Orally Four times a day Carafate 1 GM 1 tablet on an empty stomach Orally Twice a day Meclizine HCl 25 MG 1 tablet as needed Orally 3 times a day 03/06/2022 Ativan 0.5 MG 1 tablet at bedtime as needed Orally Once a day Acyclovir 400 MG 1 tablet Orally Twic e a day 04/13/2019 Olmesartan Medoxomil 40 MG 1 tablet Oral ly Once a day VESIcare 10 MG 1 tablet Orally Once a day LaMICtal 150 MG 1 tablets Orally twi ce a day 03/06/2016 Escitalopram Oxalate 5 MG 1 tablet Orall y Once a day Pravastatin Sodium 20 MG 1 tablet Orally Once a day 01/06/2019 amLODIPine Besylate 5 MG 1 tablet Orally Once a day 11/13/2020 Rosuvastatin Calcium 40 MG TAKE 1 TABLET BY MOUTH EVERY DAY FOR 30 DAYS Ondansetron HCl 4 MG TAKE 1 TABLET ORALL Y EVERY SIX HOURS NEEDED FOR NAUSEA FOR 7 DAYS Pantoprazole Sodium 40 MG 1 tablet 1/2 t o 1 hour before morning meal Orally Once a day 09/24/2024 Dexlansoprazole 60 MG TAKE 1 CAPSULE BY MOUTH EVERY DAY FOR 90 DAYS oxyCODONE HCl 5 MG 1 capsule as needed Orally every 6 hrs 09/02/2024 2.5 mg daily Next Appt Details Follow Up: As Scheduled, Godfrey chisholm, Reason: OV, To monitor blood pressure and adjust medication if necessary Provider Name:Zackery Gallardo, 11/03/2024 03:00:00 PM, [address] [place] [address] DR, [facility] [address], [place], [address], Provider Name:Zackery Gallardo, 04/01/2025 10:00:00 AM, [address] [place] [address] [address], [address], [place], [address], Progress Notes * Anastasia EUGENE ADOB:[birth year] (64 yo F)Acc No.[id number]:10/05/2024 Patient:?Anastasia EUGENE Provider:?Zackery Gallardo MD :1960???Age:64 Y???Sex:Female D ate:10/05/2024 Address:[address] [place], [place] [id number] Subjective: * Chief Complaints: * ???Right knee replacement [place] 2024Elevated blood pressure after surgeryBilateral tinnitusHypertensionCoronary artery diseaseBladder cancerParoxysmal atrial fibrillation * HPI: ???:?Telehealth?Location of provider rendering services:?{...} [address] [facility] [address] ?Location of patient:?address listed in demographics for today's visit ?Patient identification confirmed using:?Name, ?Telehealth method:?Telephone only. Patient not visible to care provider. ?Consent:?Patient verbally consented to treatment, Patient verbally consented to billing insurance company, Patient informed of any privacy concerns related to method of visit ?Total time spent with patient (mins)?15 ?The patient, a 64-year-old female, underwent a knee replacement surgery last Friday. She reported experiencing significant pain post-surgery, which she has been managing with prescribed pain medication. She also reported an increase in her blood pressure, which was measured at 170/84 by her physical therapist. Additionally, she mentioned experiencing tinnitus in her left ear. The patient is scheduled for another physical therapy session today. * ROS:?General/Constitutional:?Admits?pain,?Right knee incision.?Chills?denies.?Fatigue?admits.?Fever?denies.?ENT:?Decreased hearing?denies.?Respiratory:?Cough?denies.?Cardiovascular:?Chest pain with exertion?denies.?Dyspnea on exertion?denies.?Shortness of breath?denies.?Gastrointestinal:?Constipation?occasional.?Decreased appetite?denies.?Diarrhea?denies.?Heartburn?denies.?Nausea?denies.?Rectal bleeding?denies.?Vomiting?denies.?Hematology:?bruising?denies.?petechiae?denies.?Swollen glands?none have been noted.?Genitourinary:?Frequent urination?denies.?Musculoskeletal:?Muscle aches?denies.?Painful joints?denies.?Sciatica?denies.?Weakness?that is generalized.?Skin:?Itching?denies.?Rash?denies.?Skin lesion(s)?denies.?Neurologic:?Difficulty speaking?denies.?Dizziness?denies.?Headache?denies.?Low back pain?denies.?Psychiatric:?Depressed mood?which is moderate.? * Medical History:? * Surgical History:?ANURAG/BSO mu ltiple cystoscopies with bladder wall biopsies Left total Hip Arthroplasty 9325-01-24Wyaurpwxsw occipital scalp, serge 01/2023No history Right knee arthroplasty 10/01/2024 * Hospitalization/Major Diagno stic Procedure:?Hypertension 02/2020A-Fib @ [facility] 04/2021No history * Social History:?Tobacco Use:?Tobacco Use/Smoking?Patient is a?nonsmoker ?Additional Findings: Tobacco Non-User?Aggressive non-smoker ???She has been to [place] for 13 years, has 4 children and lives in [place]. She was born in [place], [place]. Patient Smokes Marijuana on occasions. * Medications:?TakingOndansetr on HCl 4 MG Tablet TAKE 1 TABLET ORALLY EVERY SIX HOURS NEEDED FOR NAUSEA FOR 7 DAYS Rosuvastatin Calcium 40 MG Tablet TAKE 1 TABLET BY MOUTH EVERY DAY FOR 30 DAYS Pravastatin Sodium 20 MG Tablet 1 tablet Orally Once a day Escitalopram Oxalate 5 MG Tablet 1 tablet Orally Once a day LaMICtal 150 MG Tablet 1 tablets Orally twice a day VESIcare 10 MG Tablet 1 tablet Orally Once a day amLODIPine Besylate 5 MG Tablet 1 tablet Orally Once a day Olmesartan Medoxomil 40 MG Tablet 1 tablet Orally Once a day Acyclovir 400 MG Tablet 1 tablet Orally Twice a day Ativan 0.5 MG Tablet 1 tablet at bedtime as needed Orally Once a day Meclizine HCl 25 MG Tablet 1 tablet as needed Orally 3 times a day Carafate 1 GM Tablet 1 tablet on an empty stomach Orally Twice a day Gaviscon 95-358 MG/15ML Suspension 15 mL after meals and at bedtime as needed Orally Four times a day Dexilant 30 MG Capsule Delayed Release 1 capsule Orally Once a day OxyCONTIN 15 MG Tablet ER 12 Hour Abuse- Deterrent 1 tablet Orally as needed for stomach pain Cetirizine HCl 10 MG Tablet 1 tablet Orally Once a day Linzess 145 MCG Capsule 1 capsule at least 30 minutes before the first meal of the day on an empty stomach Orally Once a day oxyCODONE HCl 5 MG Capsule 1 capsule as needed Orally every 6 hrs , Notes to Pharmacist: 2.5 mg dailyDexlansoprazole 60 MG Capsule Delayed Release TAKE 1 CAPSULE BY MOUTH EVERY DAY FOR 90 DAYS Pantoprazole Sodium 40 MG Tablet Delayed Release 1 tablet 1/2 to 1 hour before morning meal Orally Once a day Taking Ondansetron HCl 4 MG Tablet TAKE 1 TABLET ORALLY EVERY SIX HOURS NEEDED FOR NAUSEA FOR 7 DAYS Taking Rosuvastatin Calcium 40 MG Tablet TAKE 1 TABLET BY MOUTH EVERY DAY FOR 30 DAYS Taking Pravastatin Sodium 20 MG Tablet 1 tablet Orally Once a day Taking Escitalopram Oxalate 5 MG Tablet 1 tablet Orally Once a day Taking LaMICtal 150 MG Tablet 1 tablets Orally twice a day Taking VESIcare 10 MG Tablet 1 tablet Orally Once a day Taking amLODIPine Besylate 5 MG Tablet 1 tablet Orally Once a day Taking Olmesartan Medoxomil 40 MG Tablet 1 tablet Orally Once a day Taking Acyclovir 400 MG Tablet 1 tablet Orally Twice a day Taking Ativan 0.5 MG Tablet 1 tablet at bedtime as needed Orally Once a day Taking Meclizine HCl 25 MG Tablet 1 tablet as needed Orally 3 times a day Taking Carafate 1 GM Tablet 1 tablet on an empty stomach Orally Twice a day Taking Gaviscon 95-358 MG/15ML Suspension 15 mL after meals and at bedtime as needed Orally Four times a day Taking Dexilant 30 MG Capsule Delayed Release 1 capsule Orally Once a day Taking OxyCONTIN 15 MG Tablet ER 12 Hour Abuse-Deterrent 1 tablet Orally as needed for stomach pain Taking Cetirizine HCl 10 MG Tablet 1 tablet Orally Once a day Taking Linzess 145 MCG Capsule 1 capsule at least 30 minutes before the first meal of the day on an empty stomach Orally Once a day Taking oxyCODONE HCl 5 MG Capsule 1 capsule as needed Orally every 6 hrs , Notes to Pharmacist: 2.5 mg dailyTaking Dexlansoprazole 60 MG Capsule Delayed Release TAKE 1 CAPSULE BY MOUTH EVERY DAY FOR 90 DAYS Taking Pantoprazole Sodium 40 MG Tablet Delayed Release 1 tablet 1/2 to 1 hour before morning meal Orally Once a day * Allergies:?AmoxicillinSulfur PregabalinDoxycyclineCefaclor Objective: * Vitals:? * ???Past Orders: Lab:Urinalysis and Microscop ic * Collection Date 09/09/2024 03/31/2024 Collection Time 01:20 PM 10:17 AM Order Date 09/09/2024 03/31/2024 Color Urine [place] Yellow RBC Urine >20?A (Ref Range: 0-2 /HPF) 0-2 (Ref Range: 0-2 /HPF) Appearance Urine Clear Clear PH 5.5 (Ref Range: 5.0-9.0) 6.5 (Ref Range: 5.0-9.0) Glucose Urine UA See Note (Ref Range: Negative mg/dL) Negative (Ref Range: Negative mg/dL) Urine Blood See Note (Ref Range: Negative) Negative (Ref Range: Negative) Specific [place] - Urine >= 1.030?H (Ref Range: 1.005-1.025) <= 1.005 (Ref Range: 1.005-1.025) Urine Protein See Note (Ref Range: Neg-Trace mg/dL) Negative (Ref Range: Neg-Trace mg/dL) Urine Ketones See Note (Ref Range: Negative mg/dL) Negative (Ref Range: Negative mg/dL) Nitrite Urine See Note (Ref Range: Negative) Negative (Ref Range: Negative) Leukocyte Esterase Urine See Note (Ref Range: Negative) Trace?A (Ref Range: Negative) WBC Urine 6-10 (Ref Range: 0-5 /HPF) 0-5 (Ref Range: 0-5 /HPF) Squamous Epithelial Cell Urine 0-2 (Ref Range: 0-2 /HPF) 0-2 (Ref Range: 0-2 /HPF) Bacteria Urine Trace (Ref Range: None Seen) None Seen (Ref Range: None Seen) Hyaline Casts Urine 0-2 (Ref Range: 0-2 /LPF) 0-2 (Ref Range: 0-2 /LPF) * Lab:Urine Culture * Collection Date 09/09/2024 03/31/2024 Collection Time 01:20 PM 10:17 AM Order Date 09/09/2024 03/31/2024 Urine Culture < 10,000 cfu/ml < 10,000 cfu/ml Clinical Info: Please do urine C an d S,PLEASE FAX COMPLETED RESULTS TO [phone] Please do C & S Assessment: * Assessment: 1.?Status post right knee re placement - Z96.651 (Primary)???Notes :She is 4 days postoperative.? She continues to have significant pain.? She says she has an adequate amount of pain medication.? There seems to be no infection in the incision.? She has a follow-up appointment with orthopedics as well as physical therapy.???2.?Essential (primary) hypertension - I10???Notes :Her blood pressure is stable. It will be checked again in the near future. No change in her meedications was made.She reports that her blood pressure was as high as 174 systolic in the orthopedic office.? She will check her own blood pressure herself as well as with the physical therapist and report back to me.? If necessary her medications will be adjusted.???3.?Bladder cancer - C67.9???Notes :She is up-to-date with urology. Her urologist after the last cystoscopy toes are she was in remission.???4.?Radiculopathy, cervical region - M54.12???Notes :?The pain in her neck with range of motion is present but mild at this time.? It is now one of her major complaints.? She will continue current therapy.???5.?Anticoagulated - Z79.01???Notes :She has had no bleeding. She is currently in sinus rhythm.???6.?Mixed hyperlipidemia - E78.2???Notes :Her blood work reveals a fasting lipid profile has been ordered prior to her next visit.???7.?Depressive disorder, not elsewhere classified - F32.9???Notes :She continues to struggle with anxiety and depression in addition to the epigastric discomfort with eating. She was given emotional support today.She has [facility] concerning her mental illness.???8.?Overweight - E66.3???Notes :She has gained 3 pounds in her body mass index is 29.9. We made a plan to lose weight at a rate of one half of a pound per week through a diet restricted in calories.??? Plan: * Treatment: * Procedure Codes:? * Preventive Medicine:? ??Counseling:?Care goal follow-up plan:?Counseling for abnormal BMI given?Yes ?Above Normal BMI Follow-up?Dietary management education, guidance, and counseling, Dietary needs education * Follow Up:?As Scheduled, Godfrey chisholm (Reason: OV, To monitor blood pressure and adjust medication if necessary) * Images: * Sign off status: Completed true * Provider:?Zackery Gallardo MD Date:?09/16 Generated for Umair bullock/Cade/Meeitting on:?10/12/2024 04:17 PM EST History and Physical Notes * HPI (History of Present Illness) Category Sub-Category Detail Notes Telehealth Location of [facility] rendering services:: {...} [address] [facility] [address] Location of patient:: address listed in demographics for today's visit Patient identification confirmed using:: Name, Telehealth method:: Telephone only. Kala ent not visible to care provider. Consent:: Patient verbally c onsented to treatment, Patient verbally consented to billing insurance company, Patient informed of any privacy concerns related to method of visit Total time spent with patient (mins): 15
--- OUTSIDE RECORDS SUMMARY | 2024-10-12 16:17 | XMS_ITS ---
Author Organization [facility] Address [address] [place] [address] Care Team Providers Care Top Lift Nailer Name Role Phone Zackery Gallardo MD Primary Care Provider Unavailab Zackery Rowan Unavailable [phone] REASON FOR VISIT choledolithiasis,ruq pain, abn findings biliary tract Encounters Encounter Location Date Provider Diagnosis [facility] Outpatient [address] [place] [phone] 05/22/2023 Zackery Mehta Abdominal pain, RU Q R10.11 and Abn find-biliary tract R93.2 ASSESSMENTS Encounter Date Diagnosis Assessment Notes Treatment Notes Treatment Clinical Notes 05/22/2023 Abdominal pain, RUQ (ICD-10 - R10.11) 05/22/2023 Abn find-biliary tract (ICD-10 - R93.2) PLAN OF TREATMENT No Information
--- OUTSIDE RECORDS SUMMARY | 2024-10-12 16:18 | XMS_ITS | Encounter Summary ---
Author Organization [facility] Address [address] [place] [address] Care Team Providers Care Flash Welding Machine Operator Name Role Phone Zackery Gallardo MD Primary Care Provider Prakash Menchaca MD Unavailable [phone] Barbara Mcgarry NP Unavailable [phone] Encounter Details Date Type Department Care Team Description 03/03/2019 Orders Only Medical Records [address] [place] [address] Kalyan Balderas MD Social History Tobacco Use Types Packs/Day [...] Name Priority Date/Time Associated Diagnosis Comments OUTSIDE SLEEP STUDY Routine 03/01/2019 documented in this encounter Results * OUTSIDE SLEEP STUDY (03/01/2019) Kalyan Balderas MD PULMONOLOGY documented in this encounter Visit Diagnoses Not on filedocumented in this encounter Care Teams Flash Welding Machine Operator Relationship Specialty Start Date End Date Zackery Gallardo MD PCP - General 04/28/09 Prakash Fuentes MD [address] [place] [address] [address] [place], [place] [phone] Showroom Manager Cardiovascular Disease 08/14/21 Barbara Mcgarry, EVAN [address] [place] [address] DR[address] [place] [address] Nurse Practitioner Cardiology 04/19/24 documented as of this encounter
--- OUTSIDE RECORDS SUMMARY | 2024-10-12 16:18 | XMS_ITS | Encounter Summary ---
Author Organization [facility] Address [address] [place] [address] Care Team Providers Care Feed Mixer Name Role Phone Zackery Gallardo MD Primary Care Provider Prakash Menchaca MD Unavailable [phone] Barbara Mcgarry NP Unavailable [phone] Encounter Details Date Type Department Care Team Description 07/18/2021 SCAN Medical Records [address] [place] [id number] Maria Luisa Lopez MD Social History Tobacco Use Types Packs/Day [...] Name Priority Date/Time Associated Diagnosis Comments OUTSIDE EKG Routine 07/18/2021 documented in this encounter Results * OUTSIDE EKG (07/18/2021) Provider Abstract CARDIOLOGY documented in this encounter Visit Diagnoses Not on filedocumented in this encounter Care Teams Feed Mixer Relationship Specialty Start Date End Date Zackery Gallardo MD PCP - General 04/28/09 Prakash Fuentes MD [address] [place] [address] [address] [place] [address] Inspector Raw Quartz Cardiovascular Disease 08/14/21 Barbara Mcgarry, EVAN [address] [place] [address] Nurse Practitioner Cardiology 04/19/24 documented as of this encounter
--- OUTSIDE RECORDS SUMMARY | 2024-10-12 16:18 | XMS_ITS | Patient Health Record ---
Author Organization [facility] Address [address] [place] [address] Care Team Providers Care Senior Research Project Manager Name Role Phone Zackery Gallardo MD Primary Care Provider UnavailZackery Cotton Unavailable [phone] ALLERGIES Allergen (clinical drug ingredient) Drug/Non Drug Allergy documented on EMR Reaction Allergy Type Onset Date Status dicyclomine Dicyclomine Unknown Drug Allergy Act levy Sulfa Unknown Drug Allergy Active amoxicillin Amoxicillin Unknown Drug Allergy Act levy cefaclor ceclor (uncoded) Unknown Allergy Act levy REASON FOR REFERRAL No Information MEDICATIONS Medication SIG (Take, Route, Frequency, Duration) Notes Start Date End Date Status amLODIPine Besylate 2.5 MG Oral for 90 Active Bentyl 10 MG 1-2 capsules Orally QID prn abdominal cramps/bloating/di scomfort for 30 day(s) 05/10/2016 Not-Taking lamoTRIgine 150 MG TAKE 1 TABLET BY MOUTH EVERY 12 HOURS Oral for 90 Active Escitalopram Oxalate 5 MG Oral for 90 Active Ondansetron 4 MG 1 tablet on the tongue and allow to dissolve Orally Every 4 to 6 hours as needed for nausea for 30 day(s) 04/30/2023 Active Metoclopramide HCl 5 MG Oral for 4 Not-Taking Hyoscyamine Sulfate 0.125 MG 1 or 2 tablets Sublingual Every 6 hrs as needed for abdominal discomfort/cramps. You can also take it shortly before a meal to try to prevent any discomfort from eating for 30 days 04/22/2023 Active Rosuvastatin Calcium 40 MG Oral for 90 Active Dexlansoprazole 60 MG Oral for 90 Active Aspirin Adult Low Strength 81 MG 1 tablet Orally Once a day for 30 day(s) Active LORazepam 0.5mg Acti ve Ibuprofen 200 MG 1 tablet with food or milk as needed Orally prn At least once a week Active Olmesartan Medoxomil 40 MG 1 tablet Orally Once a day for 30 day(s) Active Sucralfate 1 GM 1 tablet on an empty stomach(You can dissolve it in 1 or 2 ounces of warm water if you prefer) Orally Take 30 to 60 minutes before a meal three times a day for 30 day(s) 04/30/2023 Active Hyoscyamine Sulfate 0.125 MG 1 or 2 Sublingual every 4 to 6 hrs as needed for abdominal discomfort for 30 days 05/08/2023 Active SOCIAL HISTORY Sex Assigned At : Social History Observation Description Sex Assigned At Unknown Alcohol Screen Question Answer Notes Did you have a drink contain ing alcohol in the past year? Yes How often did you have a dri nk containing alcohol in the past year? Never (0 point) How many drinks did you have on a typical day when you were drinking in the past year? 1 or 2 drinks (0 point) How often did you have 6 or more drinks on one occasion in the past year? Never (0 point) Points 0 Interpretation Negative PROBLEMS Problem Type ICD Code Onset Dates Problem Status W/U Status Risk SNOMED Code Notes Problem Esophageal reflux (K21.9) Active confirmed Esophageal refl ux (396301773) Problem Choledocholithiasis (K80.50) Active confirmed 416340790 Problem Abdominal pain, righ t upper quadrant (R10.11) Active confirmed 197353399 Problem Chronic gastritis (K29.50) Active confirmed Chronic gastrit is (8587298) Problem Abnormal findings on imaging of biliary tract (R93.2) Active confirmed 336721943 Problem Abnormal computerize d tomography of biliary tract (R93.2) Active confirmed 54961293998983288 Problem Abdominal pain, generalized (R10.84) Active confirmed 424637464 Problem 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) Active confirmed 68423500 PLAN OF TREATMENT Pending Test Test Name Order Date Hemoccult Cards (Non-Screening) 05/05/20 CHEM 7 PROFILE 05/05/2023 BUN 05/14/2023 LIVER PROFILE 05/05/2023 LIVER PROFILE 05/14/2023 CBC w DIFF 05/14/2023 CBC w DIFF 05/05/2023 CBC w DIFF 01/25/2014 CA 19-9 05/14/2023 CT ABD & PELVIS WITH CONTRAST 05/05/2023 MRI ABD NO CONTRAST (MRCP) 05/14/2023 MRI ABD W&WO CONTRAST 05/14/2023 Amylase 05/05/2023 Lipase 05/05/2023 Giardia Ag Stool EIA 05/05/2023 GI PANEL 05/05/2023 Future Test Test Name Order Date UPPER GI ENDOSCOPY 10/24/2011 COLONOSCOPY 10/24/2011 UPPER GI ENDOSCOPY 04/22/2023 ERCP SPHINCTEROTOMY/PAPILLOTOMY 05/20/20 23 Insurance Providers Payer Name Payer Address Payer Phone Subscriber Number Group Number Insured Name Patient Relationship to Insured Coverage Start Date Coverage End Date MEDICARE OF [place] [address] [place] [address] [id number] CARLINE EUGENE Self - patient is the insured MEDEX ATTN CLAIMS [address] [place] [address] [phone] [id number] CARLINE EUGENE Self - patient is the insured MEDICAID OF [facility] [address] [place] [address] [phone] [id number] CARLINE EUGENE Self - patient is the insured MEDICAL (GENERAL) HISTORY Medical History History ICD Code EGD 04-25-2008--small HH- neg H. pylori, no esophagitis nor Gomez's GERD Depression Denies [place],DM,CVA,Lung disease,renal dise ase 12/2011---neg colonoscopy exc ept diverticulosis and internal hemorrhoids; and neg EGD except small HH-gastric bx neg for H.pylori IBS--neg celiac labs in 10/2013 and neg a bd U/S in 12/2013 Bladder cancer 2016--treated with Cystoscopy and trial of BCG--having periodic cystos with Dr. Lopez Hypertension Atrial fibrillation EGD 2014 with Gastritis-EGD at [facility]- treated with a PPI Dexilant Colonoscopy negative [place] [address] Arnol laguna CAD 05/2021--1 stent Surgical History Surgery Date(Month/Year) CCY ANURAG Knee ACL Left hip replacement 2020
--- OUTSIDE RECORDS SUMMARY | 2024-10-12 16:18 | XMS_ITS | Encounter Summary ---
Author Organization [facility] Address [address] [place] [address] Care Team Providers Care Carton Machine Operator Name Role Phone Zackery Gallardo MD Primary Care Provider Prakash Menchaca MD Unavailable [phone] Barbara Mcgarry NP Unavailable [phone] Encounter Details Date Type Department Care Team Description 06/06/2021 Lead Portfolio Manager Report Medical Records [address] [place] [address] Rosi Schulz FNP Social History Tobacco Use Types Packs/Day Years [...] on filedocumented in this encounter Care Teams Carton Machine Operator Relationship Specialty Start Date End Date Zackery Gallardo MD PCP - General 04/28/09 Prakash Fuentes MD [address] [place] [address] [address] [place] [address] Hand Zipper Trimmer Cardiovascular Disease 08/14/21 Barbara Mcgarry NP [address] [place] [address] [address] [place] [address] Nurse Practitioner Cardiology 04/19/24 documented as of this encounter
--- OUTSIDE RECORDS SUMMARY | 2024-10-12 16:18 | XMS_ITS | Encounter Summary ---
Author Organization [facility] Address [address] [place] [address] Care Team Providers Care Senior Vice President Name Role Phone Zackery Gallardo MD Primary Care Provider Prakash Menchaca MD Unavailable [phone] Barbara Mcgarry NP Unavailable [phone] Encounter Details Date Type Department Care Team Description 03/19/2022 Orders Only Cardio [facility] [address] [place] [address] Drive [address] [place] [phone] Default, Provider Social History Tobacco Use Types [...] Date/Time Associated Diagnosis Comments OUTSIDE LAB Routine 12/18/2021 documented in this encounter Results * OUTSIDE LAB (12/18/2021) Provider Default LAB documented in this encounter Visit Diagnoses Not on filedocumented in this encounter Care Teams Senior Vice President Relationship Specialty Start Date End Date Zackery Gallardo MD PCP - General 04/28/09 Prakash Fuentes MD [address] [place] [address] [address] [place], [place] [phone] Actuary Clerk Cardiovascular Disease 08/14/21 Barbara Mcgarry, EVAN [address] [place] [address] [address]IVE [address] [place] [address] Nurse Practitioner Cardiology 04/19/24 documented as of this encounter
--- OUTSIDE RECORDS SUMMARY | 2024-10-12 16:18 | XMS_ITS | Encounter Summary ---
Author Organization [facility] Address [address] [place] [address] Care Team Providers Care Gill Box Tender Name Role Phone Zackery Gallardo MD Primary Care Provider Prakash Menchaca MD Unavailable [phone] Barbara Mcgarry NP Unavailable [phone] Encounter Details Date Type Department Care Team Description 06/18/2021 Inspector Repairer Report Medical Records [address] [place] [address] Zackery Gallardo MD Social History Tobacco Use Types Packs/Day [...] on filedocumented in this encounter Care Teams Gill Box Tender Relationship Specialty Start Date End Date Zackery Gallardo MD PCP - General 04/28/09 Prakash Fuentes MD [address] [place] [address] [place] [address] Armature Connector Cardiovascular Disease 08/14/21 Barbara Mcgarry NP [address] [place] [address] [address] [place] [address] Nurse Practitioner Cardiology 04/19/24 documented as of this encounter
--- OUTSIDE RECORDS SUMMARY | 2024-10-12 16:18 | XMS_ITS ---
Author Organization [facility] Address [address] [place] [address] Care Team Providers Care Dry House Wheeler Name Role Phone Zackery Gallardo MD Primary Care Provider Unavailab Zackery Rowan Unavailable [phone] REASON FOR VISIT Needs ERCP for 05/22. PROBLEMS Problem Type ICD Code Onset Dates Problem Status W/U Status Risk SNOMED Code Notes Problem Choledocholithiasis (K80.50) Active confirmed 190201350 Problem Abdominal pain, righ t upper quadrant (R10.11) Active confirmed 490642233 Problem Abnormal findings on imaging of biliary tract (R93.2) Active confirmed 557826168 Encounters Encounter Location Date Provider Diagnosis [facility] [address] [place] [phone] 05/20/2023 Zackery Mehta Choledocholithiasis K80.50 ; Abdominal pain, right upper quadrant R10.11 and Abnormal findings on imaging of biliary tract R93.2 ASSESSMENTS Encounter Date Diagnosis Assessment Notes Treatment Notes Treatment Clinical Notes 05/20/2023 Choledocholithiasis (ICD-10 - K80.50) 05/20/2023 Abdominal pain, righ t upper quadrant (ICD-10 - R10.11) 05/20/2023 Abnormal findings on imaging of biliary tract (ICD-10 - R93.2) PLAN OF TREATMENT Future Test Test Name Order Date ERCP SPHINCTEROTOMY/PAPILLOTOMY 05/20/20 23
--- OUTSIDE RECORDS SUMMARY | 2024-10-12 16:18 | XMS_ITS | Encounter Summary ---
Author Organization [facility] Address [address] [place] [address] Care Team Providers Care Cabin Service Agent Name Role Phone Zackery Gallardo MD Primary Care Provider Prakash Menchaca MD Unavailable [phone] Barbara Mcgarry NP Unavailable [phone] Encounter Details Date Type Department Care Team Description 05/30/2021 SCAN Medical Records [address] [place] [address] Reid Ndiaye MD Social History Tobacco Use [...] Date/Time Associated Diagnosis Comments OUTSIDE LAB Routine 05/30/2021 documented in this encounter Results * OUTSIDE LAB (05/30/2021) Provider Default LAB documented in this encounter Visit Diagnoses Not on filedocumented in this encounter Care Teams Cabin Service Agent Relationship Specialty Start Date End Date Zackery Gallardo MD PCP - General 04/28/09 Prakash Fuentes MD [address] [place] [address] [address] [place] [address] Electronic Parts Salesperson Cardiovascular Disease 08/14/21 Barbara Mcgarry, EVAN [address] [place] [address] [address] [place] [address] Nurse Practitioner Cardiology 04/19/24 documented as of this encounter
--- OUTSIDE RECORDS SUMMARY | 2024-10-12 16:18 | XMS_ITS | Encounter Summary ---
Author Organization [facility] Address [address] [place] [address] Care Team Providers Care Crown Assembly Machine Set Up Mechanic Name Role Phone Zackery Gallardo MD Primary Care Provider Prakash Menchaca MD Unavailable [phone] Barbara Mcgarry NP Unavailable [phone] Encounter Details Date Type Department Care Team Description 07/18/2021 SCAN Medical Records [address] [place] [address] Abstract, Provider Social History Tobacco Use Types [...] Date/Time Associated Diagnosis Comments OUTSIDE LAB Routine 07/18/2021 documented in this encounter Results * OUTSIDE LAB (07/18/2021) Provider Abstract LAB documented in this encounter Visit Diagnoses Not on filedocumented in this encounter Care Teams Crown Assembly Machine Set Up Mechanic Relationship Specialty Start Date End Date Zackery Gallardo MD PCP - General 04/28/09 Prakash Fuentes MD [address] [place] [address] [address] [place] [address] Silk Screen Printer Machine Cardiovascular Disease 08/14/21 Barbara Mcgarry, EVAN [address] [place] [address] [address]IVE [address] [place] [address] Nurse Practitioner Cardiology 04/19/24 documented as of this encounter
--- OUTSIDE RECORDS SUMMARY | 2024-10-12 16:18 | XMS_ITS | Encounter Summary ---
Author Organization [facility] Address [address] [place] [address] Care Team Providers Care Day Camp Counselor Name Role Phone Zackery Gallardo MD Primary Care Provider Prakash Menchaca MD Unavailable [phone] Barbara Mcgarry NP Unavailable [phone] Encounter Details Date Type Department Care Team Description 07/18/2021 SCAN Medical Records [address] [place] [address] Abstract, Provider Social History Tobacco Use Types [...] on filedocumented in this encounter Care Teams Day Camp Counselor Relationship Specialty Start Date End Date Zackery Gallardo MD PCP - General 04/28/09 Prakash Fuentes MD [address] [place] [address] [address] [place] [address] Seamless Hosiery Knitter Cardiovascular Disease 08/14/21 Barbara Mcgarry, EVAN [address] [place] [address] [address] [place] [address] Nurse Practitioner Cardiology 04/19/24 documented as of this encounter
--- OUTSIDE RECORDS SUMMARY | 2024-10-12 16:18 | XMS_ITS | Encounter Summary ---
Author Organization [facility] Address [address] [place] [address] Care Team Providers Care Principal Administrative Clerk Name Role Phone Zackery Gallardo MD Primary Care Provider Prakash Menchaca MD Unavailable [phone] Barbara Mcgarry NP Unavailable [phone] Encounter Details Date Type Department Care Team Description 08/14/2021 Deer Farmer Report Medical Records [address] [place] [address] Zackery Gallardo MD Social History Tobacco Use [...] on filedocumented in this encounter Care Teams Principal Administrative Clerk Relationship Specialty Start Date End Date Zackery Gallardo MD PCP - General 04/28/09 Prakash Fuentes MD [address] [place] [address] [place] [address] Housekeeping And Laundry Team Leader Cardiovascular Disease 08/14/21 Barbara Mcgarry NP [address] [place] [address] [address] [place] [address] Nurse Practitioner Cardiology 04/19/24 documented as of this encounter
--- OUTSIDE RECORDS SUMMARY | 2024-10-12 16:18 | XMS_ITS | Encounter Summary ---
Author Organization [facility] Address [address] [place] [address] Care Team Providers Care Masseur/Masseuse Name Role Phone Zackery Gallardo MD Primary Care Provider Prakash Menchaca MD Unavailable [phone] Barbara Mcgarry NP Unavailable [phone] Encounter Details Date Type Department Care Team Description 01/28/2018 Orders Only Gastroenterology - [address] [address] Rose Mary Joseph MD Social History Tobacco Use Types Packs/Day Years Used Date Smoking Tobacco: Never Smokeless Tobacco: Never Sex Assigned at Date Recorded Not on file Job Start Date Occupation Industry Not on file Not on file Not on file documented as of this encounter Plan of Treatment Not on file documented as of this encounter Visit Diagnoses Not on filedocumented in this encounter Care Teams Masseur/Masseuse Relationship Specialty Start Date End Date Zackery Gallardo MD PCP - General 04/28/09 Prakash Fuentes MD [address] [facility] [address] [place] [address] Full Service Supervisor Cardiovascular Disease 08/14/21 Barbara Mcgarry NP [address] [place] [address] [address] [place] [address] Nurse Practitioner Cardiology 04/19/24 documented as of this encounter
--- OUTSIDE RECORDS SUMMARY | 2024-10-12 16:18 | XMS_ITS | Encounter Summary ---
Author Organization [facility] Address [address] [place] [address] Care Team Providers Care Sr Risk Management Consultant Name Role Phone Zackery Gallardo MD Primary Care Provider Prakash Menchaca MD Unavailable [phone] Barbara Mcgarry NP Unavailable [phone] Encounter Details Date Type Department Care Team Description 09/25/2021 Research Study Assistant Report Medical Records [address] [place] [address] Zackery Gallardo MD Social History Tobacco Use [...] on filedocumented in this encounter Care Teams Sr Risk Management Consultant Relationship Specialty Start Date End Date Zackery Gallardo MD PCP - General 04/28/09 Prakash Fuentes MD [address] [place] [address] [place] [address] Traffic Engineering Technician Cardiovascular Disease 08/14/21 Barbara Mcgarry NP [address] [place] [address] [address] [place] [address] Nurse Practitioner Cardiology 04/19/24 documented as of this encounter
--- OUTSIDE RECORDS SUMMARY | 2024-10-12 16:18 | XMS_ITS | Encounter Summary ---
Author Organization [facility] Address [address] [place] [address] Care Team Providers Care Can Solderer Name Role Phone Zackery Gallardo MD Primary Care Provider Prakash Menchaca MD Unavailable [phone] Barbara Mcgarry NP Unavailable [phone] Encounter Details Date Type Department Care Team Description 01/01/2019 Orders Only Medical Records [address] [place] [address] Abstract, Provider Social History Tobacco Use Types [...] Date/Time Associated Diagnosis Comments OUTSIDE LAB Routine 12/31/2018 documented in this encounter Results * OUTSIDE LAB (12/31/2018) Zackery Gallardo MD LAB documented in this encounter Visit Diagnoses Not on filedocumented in this encounter Care Teams Can Solderer Relationship Specialty Start Date End Date Zackery Gallardo MD PCP - General 04/28/09 Prakash Fuentes MD [address] [place] [address] [address] [place], [place] [phone] Survey Engineer Cardiovascular Disease 08/14/21 Barbara Mcgarry, EVAN [address] [place] [address] [address] [place] [address] Nurse Practitioner Cardiology 04/19/24 documented as of this encounter
--- OUTSIDE RECORDS SUMMARY | 2024-10-12 16:18 | XMS_ITS | Encounter Summary ---
Author Organization [facility] Address [address] [place] [address] Care Team Providers Care Greenhouse Transplanter Name Role Phone Zackery Gallardo MD Primary Care Provider Prakash Menchaca MD Unavailable [phone] Barbara Mcgarry NP Unavailable [phone] Encounter Details Date Type Department Care Team Description 02/04/2019 Orders Only Medical Records [address] [place] [address] Abstract, Provider Social History Tobacco Use Types [...] Date/Time Associated Diagnosis Comments OUTSIDE LAB Routine 02/03/2019 documented in this encounter Results * OUTSIDE LAB (02/03/2019) Kalyan Balderas MD LAB documented in this encounter Visit Diagnoses Not on filedocumented in this encounter Care Teams Greenhouse Transplanter Relationship Specialty Start Date End Date Zackery Gallardo MD PCP - General 04/28/09 Prakash Fuentes MD [address] [place] [address] [address] [place] [address] Laser Specialist Cardiovascular Disease 08/14/21 Barbara Mcgarry, EVAN [address] [place] [address] [address] [place] [address] Nurse Practitioner Cardiology 04/19/24 documented as of this encounter
--- OUTSIDE RECORDS SUMMARY | 2024-10-12 16:18 | XMS_ITS | Encounter Summary ---
Author Organization [facility] Address [address] [place] [address] Care Team Providers Care Molecular Pathologist Name Role Phone Zackery Gallardo MD Primary Care Provider Prakash Menchaca MD Unavailable [phone] Barbara Mcgarry NP Unavailable [phone] Reason for Visit * Reason Onset Date Comments REFERRAL 07/07/2019 Dr. Figueroa Encounter Details Date Type Department Care Team Description 07/07/2019 Telephone Physiatry - [address] [address] Daniel Figueroa DO REFERRAL (Dr. Figueroa) Social History Tobacco Use Types Packs/Day Years [...] encounter Miscellaneous Notes * Telephone Encounter - Cally Centeno - 07/12/2019 3:31 PM EDT External PCP patient requesting Specialist Consultation: Telephone encounter to remain open as a reminder until referral, if needed is received and sent to the referrals department to link to visit. When referral is received document: - Referral #: [id number] - Effective date: 07/16/19 - Number of visits: 6 Route to the referrals dept P [id number] If no referral required CLOSE encounter Patients insurance Payor: SOLO / Plan: /OPTUM/$25/12V/HMO / Product Type: HMO [id number] Date of request: 07/12/2019 Appointment booked with: Dr Figueroa on 07/16/19 Who is calling to request the visit: The patient Patients PCP (full name): Zackery Gallardo PCP's phone #: [phone] PCP address: [address] [place] [address] Priority of request: Routine - schedule for next available appointment; Priority - visit within 4-6weeks; Urgent - visit within a week; Emergency - visit today or tomorrow. Reason for/diagnosis for specialty consult request (cannot be a body part only): Back Pain Telephone # of person calling in the consult: [phone] Is a referral needed for this patients insurance? YES Was caller informed that the referral # and effective dates must be called or faxed to us prior to the visit or visit will be cancelled? YES Was department fax # given to caller? YES Office records pertaining to reason for consult requested to be faxed including radiology, lab, pathology reports and office notes: YES * Telephone Encounter - Rosi Castro - 07/07/2019 2:25 PM EDT Patient has an outside PCP we cannot do a referral. Please contact patient and obtain referral fromher PCP. Thank you * Telephone Encounter - Griselda Poe - 07/07/2019 2:21 PM EDT Request for a referral to a [facility] Specialist for a patient with a [facility] PCP. If patient does NOT have a [facility] PCP they must obtain a referral from their PCP before being seen-do not submit request to Referrals department-contact patient. Jamshid REYNOLDS and Thiago REYNOLDS should not see patients with community PCP's as they are not billed as specialists. Specialty patient is being referred to: Physiatry Name of Specialist patient is seeing: Dr Figueroa Reason/diagnosis for visit: Back Pain Date of appoinment: 07/16/2019 If retro, date referral needs to start: NA Dr. Zackery Gallardo Payor: SOLO / Plan: /[employer]/$25/12V/HMO / Product Type: HMO [id number] documented in this encounter Plan of Treatment Not on file documented as of this encounter Visit Diagnoses Not on filedocumented in this encounter Care Teams Molecular Pathologist Relationship Specialty Start Date End Date Zackery Gallardo MD PCP - General 04/28/09 Prakash Fuentes MD [address] [place] [address] [address]IVE [address] [place] [address] Flattening Machine Operator Cardiovascular Disease 08/14/21 Barbara Mcgarry NP [address] [place] [address] [address] [place] [address] Nurse Practitioner Cardiology 04/19/24 documented as of this encounter
--- OUTSIDE RECORDS SUMMARY | 2024-10-12 16:18 | XMS_ITS | Encounter Summary ---
Author Organization [facility] Address [address] [place] [address] Care Team Providers Care Leaf Binner Name Role Phone Zackery Gallardo MD Primary Care Provider Prakash Menchaca MD Unavailable [phone] Barbara Mcgarry NP Unavailable [phone] Encounter Details Date Type Department Care Team Description 03/23/2024 SCAN Medical Records [address] [place] [address] Abstract, Provider Social History Tobacco Use Types [...] Name Priority Date/Time Associated Diagnosis Comments OUTSIDE CT Routine 03/23/2024 documented in this encounter Results * OUTSIDE CT (03/23/2024) Provider Default RADIOLOGY documented in this encounter Visit Diagnoses Not on filedocumented in this encounter Care Teams Leaf Binner Relationship Specialty Start Date End Date Zackery Gallardo MD PCP - General 04/28/09 Prakash Fuentes MD [address] [place] [address] [address] [place] [address] Furnace Tapper Cardiovascular Disease 08/14/21 Barbara Mcgarry, EVAN [address] [place] [address] DR[address] [place] [address] Nurse Practitioner Cardiology 04/19/24 documented as of this encounter
--- OUTSIDE RECORDS SUMMARY | 2024-10-12 16:18 | XMS_ITS | Encounter Summary ---
Author Organization [facility] Address [address] [place] [address] Care Team Providers Care Pediatric Physical Therapist Name Role Phone Zackery Gallardo MD Primary Care Provider Prakash Menchaca MD Unavailable [phone] Barbara Mcgarry NP Unavailable [phone] Encounter Details Date Type Department Care Team Description 10/23/2018 Orders Only Gastroenterology - [address] [place] [id number] Rose Mary Joseph MD Social History Tobacco [...] on filedocumented in this encounter Care Teams Pediatric Physical Therapist Relationship Specialty Start Date End Date Zackery Gallardo MD PCP - General 04/28/09 Prakash Fuentes MD [address] [place] [address] [address] [place], [place] [phone] Director Auto Cardiovascular Disease 08/14/21 Barbara Mcgarry NP [address] [place] [address] [address] [place], [place] [phone] Nurse Practitioner Cardiology 04/19/24 documented as of this encounter
--- OUTSIDE RECORDS SUMMARY | 2024-10-12 16:18 | XMS_ITS | Clinical Summary ---
Author Organization [address] [facility] Address [address] [place] [address] Phone Care Team Providers Care Remote Sensing Program Manager Name Role Phone Zackery Gallardo MD Primary Care Provider [phone] Allergies Active Allergy Reactions Criticality Noted Date Comments Amoxicillin 09/29/2017 Other Reaction(s): Rash/Dermatitis Cefaclor 09/29/2017 Ceclor Other Reaction(s): Rash/Dermatitis Doxycycline GI intolerance 09/29/2017 Pregabalin 10/25/2021 Sulfa (Sulfonamide Antibiotics) 09/29/2017 Sulfa Drugs Other Reaction(s): Rash/Dermatitis Medications Medication Sig Dispensed Refills Start Date End Date Status olmesartan (BENICAR) 40 mg tabletIndications:Esse ntial (primary) hypertension TAKE 1 TABLET BY MOUTH EVERY DAY 90 tablet 1 09/02/2024 Active amLODIPine (NORVASC) 5 mg tablet Take 1 Tablet by mouth daily. 04/19/2024 Active aspirin 81 mg chewable tablet Take 1 Tablet by mouth daily. 05/21/2022 Active cetirizine (ZyrTEC) 10 mg tablet Take 1 Tablet by mouth daily. Active escitalopram (LEXAPRO) 5 mg tablet Take 1 Tablet by mouth daily. Active lamoTRIgine (LaMICtal) 150 mg tablet Take 150 mg by mouth 2 times daily. Active linaCLOtide (LINZESS) 145 mcg capsule Take 1 Capsule by mouth daily. Active LORazepam (ATIVAN) 0.5 mg tablet Take 1 Tab by mouth every 6 hours as needed for Anxiety for up to 7 days. 12/15/2018 Active ondansetron (ZOFRAN) 4 mg tablet Take 1-2 Tablets by mouth as needed. Active oxyCODONE-acetaminophe n (PERCOCET) 2.5-325 mg per tablet Take 1 Tablet by mouth every 4 hours as needed. Active phenazopyridine (PYRIDIUM) 200 mg tablet Take 200 mg by mouth as needed. Active rosuvastatin (CRESTOR) 40 mg tablet Take 1 Tablet by mouth daily. Active Active Problems Problem Noted Date Diagnosed Date Depression 10/07/2024 Hyperlipidemia 10/07/2024 Overview (10/07/2024): Last Assessment & Plan: Patient's last LDL cholesterol on file is 110. This is above goal. Currently she is on rosuvastatin 40 mg once a day. We will update lipids next visit. Coronary artery disease 11/01/2021 Overview (10/07/2024): Last Assessment & Plan: Patient with a history of single-vessel coronary disease status post stenting. She went on a 30 mile bike ride this weekend with no chest pain or discomfort. From a cardiovascular standpoint she presents an acceptable risk for your planned surgical procedure with about a 1% risk of possible perioperative cardiac event based on the Mclean perioperative assessment scale. No further cardiac intervention is required prior to her bladder surgery Obesity 10/25/2021 PAF (paroxysmal atrial fibrillation) 10/25/2021 Overview (10/07/2024): Last Assessment & Plan: Patient with 1 episode of documented paroxysmal atrial fibrillation. No further episodes. Recent 48-hour monitor done to rule out the possibility of symptomatic bradycardia she does have bradycardia but it does not require pacing or changes in medical management since she is not on beta-ayana or calcium channel ayana Pulmonary nodules 03/23/2019 Obstructive sleep apnea 03/03/2019 Overview (10/07/2024): Obstructive sleep apnea mild SHUN 11 [facility] Home Sleep Apnea Test: Date 03/01/2019; Wt 210#; BMI 35; SHUN 11, AI 1; HI 8; Unclassified apneas 0; Obstructive apneas 6; Central apneas 3; Mixed apneas 1; hypopneas 86; average oxygen saturation 92% (lowest 86% without saturations <88% for 5% or more of study) - Obstructive Sleep Apnea - mild; mostly hypopneas; without sleep related hypoventilation by 2019 home polysomnogram. Immunizations Name Administration Dates Next Due Influenza trivalent, 0.5mL, preservative free (Fluarix; FluLaval; Fluzone) ages 6mo and older (Afluria) 3 years and older 05/30/2017 Surgical History Surgery Date Site/Laterality Comments HYSTERECTOMY PROCEDURE:HYSTERECTOMY SECTION PROCEDURE: SECTION KNEE SURGERY PROCEDURE:KNEE SURGERY NECK SURGERY PROCEDURE:NECK SURGERY TURBINOPLASTY PROCEDURE:TURBINOPLASTY TOTAL HIP ARTHROPLASTY 07/24/2020 Left PROCEDURE:TOTAL HIP ARTHROPLASTY;COMMENT:Procedu re: REPLACEMENT TOTAL HIP; Surgeon: Arvin Feliz MD; Location: [facility] Service: Orthopedics; Laterality: Left; BREAST SURGERY 2002 Right PROCEDURE: MD UNLISTED PROCEDURE BREAST; COMMENT: neg UPPER GASTROINTESTINAL ENDOSCOPY 12/24/2017 PROCEDURE: UPPER GI ENDOSCOPY/EXAM; COMMENT: Gastritis COLONOSCOPY 05/07/2018 PROCEDURE: HISTORICAL COLONOSCOPY; COMMENT: negative HYSTERECTOMY PROCEDURE: HISTORICAL HYSTERECTOMY; COMMENT: x2 OTHER SURGICAL HISTORY Right PROCEDURE: HISTORY OTHER; COMMENT: ACL - Repair of Anterior Cruciate Ligament CHOLECYSTECTOMY PROCEDURE: HISTORICAL CHOLECYSTECTOMY TONSILLECTOMY PROCEDURE: HISTORICAL TONSILLECTOMY ADENOIDECTOMY PROCEDURE: HISTORICAL ADENOIDECTOMY OTHER SURGICAL HISTORY PROCEDURE: HISTORY OTHER; COMMENT: Cervical Disc HYSTERECTOMY PROCEDURE: HISTORICAL TOTAL HYSTERECTOMY WITH BSO OTHER SURGICAL HISTORY 07/24/2020 Left PROCEDURE: MD ARTHRP ACETBLR/PROX FEM PROSTC AGRFT/ALGRFT; COMMENT: L total hip arthroplasty Medical History Medical History Date Comments High blood pressure DX:High bloo d pressure Peptic ulceration DX:Peptic ulce ration Pulmonary nodules DX:Pulmonary n odules Anxiety and depression DX:Anxiet y and depression Hypertensive crisis 12/2019 DX:Hypertens levy crisis Hyperlipidemia DX:Hyperlipidemi a Heart murmur DX:Heart murmur Migraine headache DX:Migraine he adache GERD (gastroesophageal reflux disease) DX:GERD (gastroesophageal reflux disease) Urinary urgency DX:Urinary urgen cy PONV (postoperative nausea a nd vomiting) DX:PONV (postoperative nause a and vomiting) Cancer (CMS/HCC) DX:Cancer (HCC) ;COMMENT:BLADDER-CHEMO History of transfusion DX:Histor y of transfusion Osteoarthritis DX:Osteoarthriti s Sleep apnea, obstructive DX:Slee p apnea, obstructive;COMMENT:Mild MEENA and central sleep apnea per pulmonology note 02/2020-not COMPLIANT WITH CPAP Bladder cancer ([facility]) DX:Blad danie cancer ([facility]); COMMENT: Follows with Dr. Lopez and in [place] Hyperlipidemia DX:Hyperlipidemi a Depression DX:Depression Left elbow pain DX:Left elbow pa in Injury of great toe of left foot DX:Injury of great toe of left foot Cervical radiculopathy DX:Cervic al radiculopathy Obesity DX:Obesity Post hysterectomy menopause DX:P ost hysterectomy menopause Dyspareunia in female DX:Dyspare unia in female Medical marijuana use DX:Medical marijuana use Arthritis of right hip DX:Arthri tis of right hip Chronic anticoagulation DX:Chron ic anticoagulation Covid-19 DX:COVID-19 Coronary artery disease 11/01/2021 PAF (paroxysmal atrial fibri llation) ([facility]) 10/25/2021 Family History Medical History Relation Name Comments Cancer Brother 1 SKIN-MELANOMA Heart disease Brother 1 Hyperlipidemia Brother 1 Hypertension Brother 1 No Known Problems Brother 2 No Known Problems Daughter 1 No Known Problems Daughter 2 No Known Problems Daughter 3 No Known Problems Daughter 4 Heart attack Father Heart disease Father [place] Hyperlipidemia Father Hypertension Father Other: Cardiac Disease Father Breast cancer Maternal Grandfather 50s Breast cancer Maternal Grandmother 50s Arthritis Mother Cancer Mother LUNG Clotting disorder Mother Deep vein thrombosis Mother Heart disease Mother Hyperlipidemia Mother Hypertension Mother Lung cancer Mother Other: Alcoholism Mother Cancer Sister 1 SKIN-MELANOMA Heart disease Sister 1 Hypertension Sister 1 Hypertension Sister 2 Relation Name Status Comments Brother 1 Alive Brother 2 Alive Daughter 1 Daughter 2 Daughter 3 Daughter 4 Father Maternal Grandfather 50s Maternal Grandmother 50s Mother Sister 1 Alive Sister 2 Alive Social History Tobacco Use Types Packs/Day Years Used Date Smoking Tobacco: Never Smokeless Tobacco: Never Alcohol Use Standard Drinks/Week Comments Yes 3 (1 standard drink = 0.6 oz pur e alcohol) Sex and Gender Information Value Date Recorded Sex Assigned at Not on file Gender Identity Not on file Sexual Orientation Not on file Job Start Date Occupation Industry Not on file Not on file Not on file Obstetrics History Last Filed Vital Signs Vital Sign Reading Time Taken Comments Blood Pressure 118/64 07/07/2024 11:15 AM EDT Si tting L Arm Pulse 63 07/07/2024 11:15 AM EDT Temperature - - Respiratory Rate - - Oxygen Saturation - - Inhaled Oxygen Concentration - - Weight 80.3 kg (177 lb) 07/07/2024 11:15 AM EDT Height 163.8 cm (5' 4.5 ) 07/07/2024 11:15 AM ED T Body Mass Index 29.91 07/07/2024 11:15 AM EDT Plan of Treatment Upcoming Encounters Date Type Department Care Team (Late st Contact Info) Description 10/29/2024 1:15 PM EST Consult Neurosurgery [facility] [address] [facility] [address] [place] [id number] Mimi Deluna MD [address] [place] [address] 02/25/2025 9:40 AM EDT Appointment Radiology Department [address] [phone] Health Maintenance Due Date Last Done Comments Cervical Cancer Screening: Pap Smear 1982 Zoster Vaccines (1 of 2) 2011 RSV Immunization Patients 60+ Years Old (1 - Risk 60-74 years 1-dose series) 2021 Cholesterol Screening (Lipid Panel) 08/24/2022 Depression Screening 08/24/2022 HIV Screening 08/24/2022 Hypertension/CHF/CAD Annual BMP Blood Test 08/24/2022 Medicare Annual Wellness Visit 08/24/2022 Social Influencers of Health Screening 08/24/2022 COVID-19 Vaccine ( season) 2024 10/13/2021, 11/03/2020, 10/06/2020 Influenza Vaccine (#1) 2024 3, 06/28/2022, 05/16/2022, Additional history exists Breast Cancer Screening 02/12/2026 02/13/20 24, 02/13/2024, 02/04/2023, Additional history exists Colorectal Cancer Screening: Colonoscopy 05/07/2028 05/07/2018 DTaP,Tdap,and Td Vaccines (2 - Td or Tdap) 01/30/2033 01/30/2023 Hepatitis C Screening Completed 04/30/2022 HIB Vaccines Aged Out No longer eligi ble based on patient's age to complete this topic HPV Vaccines Aged Out No longer eligi ble based on patient's age to complete this topic Hepatitis A Vaccines Aged Out No long er eligible based on patient's age to complete this topic Hepatitis B Vaccines Aged Out No long er eligible based on patient's age to complete this topic IPV Vaccines Aged Out No longer eligi ble based on patient's age to complete this topic MMR Vaccines Aged Out No longer eligi ble based on patient's age to complete this topic Meningococcal ACWY Vaccine Aged Out N o longer eligible based on patient's age to complete this topic Pneumococcal Vaccine: Pediatrics (0 to 5 Years) and At-Risk Patients (6 to 64 Years) Aged Out No longer eligible based on patient's age to complete this topic RSV Immunization Patients Under 20 months Aged Out No longer eligible based on patient's age to complete this topic Varicella Vaccines Aged Out No longer eligible based on patient's age to complete this topic Medical Devices Implanted Type Area Antique Furniture Restorer Device Identifier Shelf Expiration Date Model / Serial / Lot Liner Lfit D 3.9mm 36mm Expanded X3 Acetabular - [id number] Implanted:Qty: 1 on 07/24/2020 by Arvin Feliz MD Left: Hip [employer] [id number] 06/05/2025 623-00-36D / / [id number] Shell Trident Ii D 50mm 3 Screw Hole Cluster Tritanium - [id number] Implanted:Qty: 1 on 07/24/2020 by Arvin Feliz MD Left: Hip [employer] [id number] 05/28/2025 702-04-50D / / [id number] Screw Trident Ii 30mm 6.5mm Low Profile Hexagonal Bone - [id number] Implanted:Qty: 1 on 07/24/2020 by Arvin Feliz MD Left: Hip [employer] [id number] 03/07/2025 [id number] / / [id number] Screw Trident Ii 30mm 6.5mm Low Profile Hexagonal Bone - [id number] Implanted:Qty: 1 on 07/24/2020 by Arvin Feliz MD Left: Hip [employer] [id number] 03/01/2025 [id number] / / [id number] Stem Accolade Ii 4 132d Femoral - [id number] Implanted:Qty: 1 on 07/24/2020 by Arvin Feliz MD Left: Hip [employer] [id number] 10/16/2024 [id number] / / [id number] Head V40 Standard 36mm Enhanced Stability Proven Modularity - [id number] Implanted:Qty: 1 on 07/24/2020 by Arvin Feliz MD Left: Hip [employer] [id number] 05/12/2025 6570-0-136 / / [id number] Procedures Procedure Name Priority Date/Time Associated Diagnosis Comments SCREENING MAMMOGRAPHY BI 2-VIEW BREAST INC CAD Routine 02/13/2024 9:07 AM EDT Encounter for screening mammogram for malignant neoplasm of breast HEPATITIS C SCREENING Routine 04/30/2022 COLONOSCOPY Routine 05/07/2018 from Last 3 Months or Most Recently Relevant to Health Maintenance Results * SCREENING MAMMOGRAPHY BI 2-VIEW BREAST INC CAD (02/13/2024 9:07 AM EDT) Anatomical Region Laterality Modality Radiographic Sarah ging 02/04/2023 7:50 AM EDT Narrative 02/13/2024 5:26 PM EDT This is a summary report. The complete report is available in the patient's medical record. If you cannot access the medical record, please contact the sending organization for a detailed fax or copy. Full field digital screening 2D C views and tomosynthesis mammography, reviewed with CAD and compared to previous. The breasts are composed of fatty and fibroglandular tissue. ??No suspicious mass, architectural distortion or suspicious calcifications are identified. IMPRESSION: : No mammographic evidence of malignancy. BIRADS 1-Negative; N. 5 year breast cancer risk assessment 1.5 % Lifetime breast cancer risk assessment 6.9 % Breast cancer risk category Low (<15%) Procedure Note Jennifer Campbell MD - 08/09/2024 This is a summary report. The complete report is available in thepatient's medical record. If you cannot access the medical record, pleasecontact the sending organization for a detailed fax or copy. Full field digital screening 2D C views and tomosynthesis mammography,reviewed with CAD and compared to previous. The breasts are composed offatty and fibroglandular tissue. No suspicious mass, architecturaldistortion or suspicious calcifications are identified. IMPRESSION: : No mammographic evidence of malignancy. BIRADS 1-Negative; N. 5 year breast cancer risk assessment 1.5 % Lifetime breast cancer risk assessment 6.9 % Breast cancer risk category Low (<15%) Zackery Gallardo MD IMG XR PROCEDURES * Hepatitis C Screening (04/30/2022) Pathologist [facility] Hepatitis C Screening abstracted Historical Provider MD SHAYLA IBARRA E * Colonoscopy (05/07/2018) Pathologist [facility] Colonoscopy normal, abstracted Anatomical Region Laterality Modality Other Historical Provider MD SHAYLA Antonio from Last 3 Months or Most Recently Relevant to Health Maintenance Care Teams Remote Sensing Program Manager Relationship Specialty Start Date End Date Zackery Gallardo MD [address] [place] [address] PCP - General Oncology 10/06/24
--- OUTSIDE RECORDS SUMMARY | 2024-10-12 16:18 | XMS_ITS | Encounter Summary ---
Author Organization [facility] Address [address] [place] [address] Care Team Providers Care Supervisor Mechanic Boilermaking Name Role Phone Zackery Gallardo MD Primary Care Provider Prakash Menchaca MD Unavailable [phone] Barbara Mcgarry NP Unavailable [phone] Encounter Details Date Type Department Care Team Description 08/14/2021 SCAN Medical Records [address] [place] [address] [facility] Social History Tobacco Use Types Packs/Day Years [...] on filedocumented in this encounter Care Teams Supervisor Mechanic Boilermaking Relationship Specialty Start Date End Date Zackery Gallardo MD PCP - General 04/28/09 Prakash Fuentes MD [address] [place] [address] [address]IVE [address] [place] [address] Warranty Administrator Cardiovascular Disease 08/14/21 Barbara Mcgarry NP [address] [place] [address] DRIVE [address] [place] [address] Nurse Practitioner Cardiology 04/19/24 documented as of this encounter
--- OUTSIDE RECORDS SUMMARY | 2024-10-12 16:18 | XMS_ITS | Clinical Summary ---
Author Organization [facility] Address [address] [place] [address] Care Team Providers Care Senior Back End Java Developer Name Role Phone Zackery Gallardo MD Primary Care Provider [phone] Medications olmesartan (BENICAR) 40 MG tablet TAKE 1 TABLET BY MOUTH EVERY DAY 90 tablet 3 03/26/2021 Active Family History Medical History Relation Comments Heart disease Father Cancer Mother lung Heart disease Mother Cancer Sibling 1 melanoma Hypertension Sibling 2 sister & brother Relation Status Comments Father Mother Sibling 1 Sibling 2 Social History Tobacco Use Types Packs/Day Years Used Date Smoking Tobacco: Never Alcohol Use Standard Drinks/Week Comments Yes 0 (1 standard drink = 0.6 oz pure alcohol) Alcoholic Drinks/day: Occasional social drink Comments Unknown Sex and Gender Information Value Date Recorded Sex Assigned at Not on file Legal Sex Female 4:57 PM EST Gender Identity Not on file Sexual Orientation Not on file Last Filed Vital Signs Vital Sign Reading Time Taken Comments Blood Pressure 140/90 04/26/2020 12:00 PM EDT Pulse 66 03/10/2020 12:00 PM EDT Temperature - - Respiratory Rate - - Oxygen Saturation - - Inhaled Oxygen Concentration - - Weight 94.4 kg (208 lb 3.2 oz) 03/10/2020 12:00 PM EDT Height 163.8 cm (5' 4.5 ) 04/26/2020 12:00 PM ED T Body Mass Index 35.19 03/10/2020 12:00 PM EDT Plan of Treatment Health Maintenance Due Date Last Done Comments Breast Cancer Screening 1961 Colorectal Cancer Screening: Annual FOBT 2010 Colorectal Cancer Screening: Colonoscopy 2010 Colorectal Cancer Screening: Sigmoidoscopy 2010 Influenza Vaccine (#1) 2024 Hepatitis B Vaccine Aged Out No longe r eligible based on patient's age to complete this topic Pneumococcal Vaccine: Pediat rics (0 to 5 Years) and At-Risk Patients (6 to 64 Years) Aged Out No longer eligible b ased on patient's age to complete this topic Care Teams Senior Back End Java Developer Relationship Specialty Start Date End Date Zackery Gallardo MD [address] [place] [address] [address] [place], [place] PCP - General 09/25/20
--- OUTSIDE RECORDS SUMMARY | 2024-10-12 16:18 | XMS_ITS | Encounter Summary ---
Author Organization [facility] Address [address] [place] [address] Care Team Providers Care Booth Supervisor Name Role Phone Zackery Gallardo MD Primary Care Provider Prakash Menchaca MD Unavailable [phone] Barbara Mcgarry NP Unavailable [phone] Reason for Visit * Reason Onset Date Comments Call-returning From Provider 01/02/2022 ret urning call Encounter Details Date Type Department Care Team Description 01/02/2022 Telephone Cardio [facility] [address] [place] [phone] Prakash Fuentes MD [address] [facility] [facility] [address] [place], [place] [phone] Call-returning From Provider (returning call ) Social History Tobacco Use Types Packs/Day Years [...] encounter Miscellaneous Notes * Telephone Encounter - Nichole Hernandez M.A. - 01/02/2022 1:29 PM EDT Patient was called in regards to the letter from Dr. Fuentes. Letter was read to the patient. Patient states that she has taken Atorvastatin in the past and was discontinued due to leg cramping. Patient states that she was prescribed Rosuvastatin 20 mg daily and has been taking the medication which was prescribed by Dr. Monique her prior Customer Order Clerk. Medication list was updated. Please review and let me know if any further instructions. * Telephone Encounter - Samantha Valente - 01/02/2022 11:52 AM EDT Pt called stating She received a call from brooke please Call her Back Job documented in this encounter Plan of Treatment Not on file documented as of this encounter Visit Diagnoses Not on filedocumented in this encounter Care Teams Booth Supervisor Relationship Specialty Start Date End Date Zackery Gallardo MD PCP - General 04/28/09 Prakash Fuentes MD [address] [place] [address] [address] [place] [address] Customer Order Clerk Cardiovascular Disease 08/14/21 Barbara Mcgarry NP [address] [place] [address] DR[address] [place] [address] Nurse Practitioner Cardiology 04/19/24 documented as of this encounter
--- OUTSIDE RECORDS SUMMARY | 2024-10-12 16:18 | XMS_ITS | Clinical Summary ---
Author Organization [facility] Address [address] [place] [address] Care Team Providers Care Wire Drawer Name Role Phone Zackery Gallardo MD Primary Care Provider [phone] Allergies Active Allergy Reactions Criticality Noted Date Comments Cefaclor Hives,Other (See Comments) Medium 08/29/2017 Doxycycline Other (See Comments) Medium 09/29/2017 GASTRIC ULCER Peptic ulcerations Other Rash Low 08/29/2017 AMOXICILLIN Penicillins Rash,Other (See Comments) Low 08/29/2017 Sulfa Antibiotics Rash Low 07/12/2020 Medications Medication Sig Dispensed Refills Start Date End Date Status LORazepam (ATIVAN) 0.5 MG tablet Take 0.5 mg by mouth every 8 (eight) hours as needed. 0 04/17/2020 Active olmesartan (BENICAR) tablet 40 mg Take 40 mg by mouth daily. 0 05/29/2020 Active escitalopram (LEXAPRO) 5 MG tablet 0 08/18/2020 Active pravastatin (PRAVACHOL) tablet 40 mg Take 40 mg by mouth daily. 0 09/03/2020 Active amitriptyline (ELAVIL) 10 MG tablet 0 09/20/2020 Active lamoTRIgine (LaMICtal) 200 MG tablet 0 09/21/2020 Active amLODIPine (NORVASC) tablet 5 mg Take 1 tablet (5 mg total) by mouth daily. 90 tablet 3 11/13/2020 Active clindamycin (CLEOCIN) 300 MG capsule Take 2 tabs one hour prior to dental procedure 2 capsule 2 03/06/2021 Active predniSONE (DELTASONE) tablet 10 mg 3 tabs QD x 4 days, 2 tabs QD x 4 days, 1 tab QD x 4 days 24 tablet 0 10/10/2021 Active Active Problems Problem Noted Date Diagnosed Date History of fusion of cervical spine 08/31/2020 Neural foraminal stenosis of cervical spine 03/2020 Cervical spondylolysis 08/21/2020 Cervical radiculopathy 08/21/2020 Neck pain 08/21/2020 Other secondary kyphosis, cervical region 2019 Overview: Flat neck History of postoperative nausea and vomiting 03/2020 History of total hip arthroplasty, left 08/21/20 Obesity (BMI 30-39.9) 07/14/2020 Arthritis of left hip 06/02/2020 Family History Medical History Relation Name Comments Cancer Brother SKIN-MELANOMA Heart disease Brother Hyperlipidemia Brother Hypertension Brother Heart disease Father [place] Hyperlipidemia Father Hypertension Father Cancer Mother LUNG Clotting disorder Mother Deep vein thrombosis Mother Heart disease Mother Hyperlipidemia Mother Hypertension Mother Cancer Sister SKIN-MELANOMA Heart disease Sister Hypertension Sister Relation Name Status Comments Brother Alive Father (Age 61) Mother (Age 77) Sister Alive Social History Tobacco Use Types Packs/Day Years Used Date Smoking Tobacco: Never Smokeless Tobacco: Never Alcohol Use Standard Drinks/Week Comments Yes 3 (1 standard drink = 0.6 oz pur e alcohol) Sex and Gender Information Value Date Recorded Sex Assigned at Female 07/12/2020 4:33 PM EDT Gender Identity Female 07/12/2020 4:33 PM EDT Sexual Orientation Not on file Job Start Date Occupation Industry Not on file Not on file Not on file Last Filed Vital Signs Vital Sign Reading Time Taken Comments Blood Pressure 128/80 09/21/2020 8:59 AM EST Pulse 63 09/21/2020 8:24 AM EST Temperature 36.7 ??C (98 ??F) 07/25/2020 8:09 AM EST Respiratory Rate 18 07/25/2020 8:09 AM EST Oxygen Saturation 97% 08/21/2020 11:03 AM EST Inhaled Oxygen Concentration - - Weight 91.6 kg (202 lb) 04/10/2022 9:49 AM EDT Height 163.8 cm (5' 4.5 ) 04/10/2022 9:49 AM EDT Body Mass Index 34.14 04/10/2022 9:49 AM EDT Plan of Treatment Health Maintenance Due Date Last Done Comments Hepatitis C Screening 1961 COVID-19 Vaccine (#1) 01/14/1962 Depression Screening 1973 BMI Counseling 1979 Preventative Health Evaluation 1979 DTap / Tdap / Td (1 - Tdap) 1980 Cervical Cancer Screening (Pap Smear) 1982 Colon Cancer Screening (Colonoscopy) 2006 Breast Cancer Screening (Mammogram) 2011 Shingrix-Zoster Vaccine (1 o f 2) 2011 Influenza Vaccine (#1) 2024 , 05/30/2017, 07/21/2013 RSV Adult > 60+ Yrs or (1 - 1-dose 75+ series) 2036 Hepatitis B Vaccines Aged Out No long er eligible based on patient's age to complete this topic Pneumococcal Vaccine Aged Out No long er eligible based on patient's age to complete this topic RSV Ped < 20 months Aged Out No longe r eligible based on patient's age to complete this topic Medical Devices Implanted Type Area Hearing Examiner Device Identifier Shelf Expiration Date Model / Serial / Lot Liner Lfit D 3.9mm 36mm Expanded X3 Acetabular - [id number] - [id number] Implanted:Qty: 1 on 07/24/2020 by Arvin Feliz MD at [facility] Left: Hip [employer] [id number] 06/05/2025 623-00-36D / / [id number] Shell Trident Ii D 50mm 3 Screw Hole Cluster Tritanium - [id number] - [id number] Implanted:Qty: 1 on 07/24/2020 by Arvni Feliz MD at [facility] Left: Hip [employer] [id number] 05/28/2025 702-04-50D / / [id number] Screw Trident Ii 30mm 6.5mm Low Profile Hexagonal Bone - [id number] - [id number] Implanted:Qty: 1 on 07/24/2020 by Arvin Feliz MD at [facility] Left: Hip [employer] [id number] 03/07/2025 [id number] / / [id number] Screw Trident Ii 30mm 6.5mm Low Profile Hexagonal Bone - [id number] - [id number] Implanted:Qty: 1 on 07/24/2020 by Arvin Feliz MD at [facility] Left: Hip [employer] [id number] 03/01/2025 [id number] / / [id number] Stem Accolade Ii 4 132d Femoral - [id number] - [id number] Implanted:Qty: 1 on 07/24/2020 by Arvin Feliz MD at [facility] Left: Hip [employer] [id number] 10/16/2024 [id number] / / [id number] Head V40 Standard 36mm Enhanced Stability Proven Modularity - [id number] - [id number] Implanted:Qty: 1 on 07/24/2020 by Arvin Feliz MD at [facility] Left: Hip [employer] [id number] 05/12/2025 6570-0-136 / / [id number] Advance Directives For more information, please contact: [phone] Latest Code Status on File Code Status Date Activated Date Inactivated Comments Full Code 07/24/2020 10:17 AM 07/25/2020 10:04 PM Th is code status was ascertained in the following way . Code Status History Code Status Date Activated Date Inactivated Comments Full Code 07/24/2020 7:49 AM 07/24/2020 10:17 AM This code status was ascertained in the following way: discussion with patient . Care Teams Wire Drawer Relationship Specialty Start Date End Date Zackery Gallardo MD [facility] [address] [id number] PCP - General Oncology 07/18/20
--- OUTSIDE RECORDS SUMMARY | 2024-10-12 16:18 | XMS_ITS | Encounter Summary ---
Author Organization [facility] Address [address] [place] [address] Care Team Providers Care Helper Coordinator Name Role Phone Zackery Gallardo MD Primary Care Provider Prakash Menchaca MD Unavailable Barbara Mcgarry NP Unavailable [phone] Reason for Visit * Reason Onset Date Comments [facility] 05/01/2018 Encounter Details Date Type Department Care Team Description 05/01/2018 Telephone Gastroenterology - [address] [address] Rose Mary Joseph MD [facility] Social History Tobacco Use Types Packs/Day Years [...] encounter Miscellaneous Notes * Telephone Encounter - Laly Riley - 05/05/2018 12:35 PM EDT Case # [id number] * Telephone Encounter - Laly Riley - 05/05/2018 10:32 AM EDT Patient's appointment time has been changed to , 05/07/18 at 12:00 pm arrival time, 1:[address] Joseph. [facility] has been notified. Booking sheet, snap shot, demographics, and insurance faxed to [facility]. * Telephone Encounter - Sofia Anna - 05/05/2018 9:21 AM EDT was received * Telephone Encounter - Rhoda Gonzalez - 05/01/2018 2:20 PM EDT Patient has been referred by Dr. Rose Mary Joseph to [facility] for Colonoscopy on , 05/07/18, with Dr. Rsoe Mary Joseph, arrival 2:30pm, procedure 3:30pm. Booked with [facility]: Booking Sheet/SnapShot/Demographics/Insurance Payor: [facility] SELF FUNDED / Plan: EPO $20 [place] SELF / Product Type: EPO No authorization needed Case # pending documented in this encounter Plan of Treatment Not on file documented as of this encounter Visit Diagnoses Not on filedocumented in this encounter Care Teams Helper Coordinator Relationship Specialty Start Date End Date Zackery Gallardo MD PCP - General 04/28/09 Prakash Fuentes MD [address] [place] [address] [address] [place] [address] Interlocking Installer Cardiovascular Disease 08/14/21 Barbara Mcgarry NP [address] [place] [address] [address] [place] [address] Nurse Practitioner Cardiology 04/19/24 documented as of this encounter
--- OUTSIDE RECORDS SUMMARY | 2024-10-12 16:18 | XMS_ITS | Encounter Summary ---
Author Organization [facility] Address [address] [place] [address] Care Team Providers Care Reporting Manager Name Role Phone Zackery Gallardo MD Primary Care Provider Prakash Menchaca MD Unavailable [phone] Barbara Mcgarry NP Unavailable [phone] Encounter Details Date Type Department Care Team Description 02/05/2023 Business Doc Medical Records [address] [place] [id number] Abstract, Provider Social History Tobacco Use Types Packs/Day Years Used Date Smoking Tobacco: Never Smokeless Tobacco: Never Alcohol Use Standard Drinks/Week Comments Yes 0 (1 standard drink = 0.6 oz pur e alcohol) occasional Sex Assigned at Date Recorded Not on file Job Start Date Occupation Industry Not on file Not on file Not on file COVID-19 Exposure Response Date Recorded In the last 10 days, have yo u been in contact with someone who was confirmed or suspected to have Coronavirus/COVID-19? No / Unsure 02/04/2023 7:42 AM EDT documented as of this encounter Plan of Treatment Not on file documented as of this encounter Visit Diagnoses Not on filedocumented in this encounter Care Teams Reporting Manager Relationship Specialty Start Date End Date Zackery Gallardo MD PCP - General 04/28/09 Prakash Fuentes MD [address] [place] [address] [address] [place] [address] Youth Ministry Director Cardiovascular Disease 08/14/21 Barbara Mcgarry NP [address] [place] [address] [address] [place] [address] Nurse Practitioner Cardiology 04/19/24 documented as of this encounter
--- OUTSIDE RECORDS SUMMARY | 2024-10-12 16:18 | XMS_ITS | Encounter Summary ---
Author Organization [facility] Address [address] [place] [address] Care Team Providers Care Compliance Lead Name Role Phone Zackery Gallardo MD Primary Care Provider Prakash Menchaca MD Unavailable [phone] Barbara Mcgarry NP Unavailable [phone] Encounter Details Date Type Department Care Team Description 04/03/2018 Orders Only Gastroenterology - [address] [address] Rose Mary Joseph MD Social History Tobacco [...] on filedocumented in this encounter Care Teams Compliance Lead Relationship Specialty Start Date End Date Zackery Gallardo MD PCP - General 04/28/09 Prakash Fuentes MD [address] [place] [id number] Border Measurer And Cutter Cardiovascular Disease 08/14/21 Barbara Mcgarry NP [address] [place] [address] [address] [place] [address] Nurse Practitioner Cardiology 04/19/24 documented as of this encounter
== END 2024-10-12 15:20 | disposition home or self-care (01) ==
LOC: HO.HOP 15:19
PROVIDERS: PCP Internal Medicine Medical Oncology; Visit Provider Psychiatry & Neurology Psychiatry
DX: F43.11 Post-traumatic stress disorder, acute (principal); F41.1 Generalized anxiety disorder
CPT/HCPCS: 99213

== ENCOUNTER → 2024-10-12 15:19 | Outpatient (BNVA) | payer MEDICARE, MEDICAID, SELFPAY | PROVIDERS: PCP Internal Medicine Medical Oncology; Visit Provider Psychiatry & Neurology Psychiatry ==

== ENCOUNTER 2025-04-27 11:15 | Emergency (ER) | payer MEDICARE, OTHER, SELFPAY ==
--- OUTSIDE RECORDS SUMMARY | 2025-04-06 07:00 | XMS_ITS | Encounter Summary ---
Author Name [facility] Organization [facility] Address [address] [place] [address] Care Team Providers Care Social Services Director Name Role Phone JACQUELYN BARTLETT Primary Care Provider Unavail able Insurance Providers: All historical and current Section Date Range: From patient's date of to the date document was created. This section includes the names of all active insurance providers for the patient. Insurance Provider Type of Coverage Plan Name Start of Policy Coverage End of Policy Coverage Group Number Member ID Insurance Provider's Telephone Number Policy Stallings's Name Patient's Relationship to Policy Stallings [place] SUPPLEMEN ELDON MEDEX SAPPH LUIZ H & V Oct 16, 2021 [id number] Gokul EUGENE PATIENT MEDICAID MEDICAID [facility] Sep 15, 2017 MEDICAI D [id number] Gokul EUGENE PATIENT MEDICARE (WNR) MEDICARE (M) PART B Nov 13, 2020 PART B [id number] Gokul EUGENE PATIENT MEDICARE (WNR) MEDICARE (M) PART A May 16, 2020 PART A [id number] Gokul EUGENE PATIENT Selected Encounter This section includes the information on record at [place] for the Encounter. Date/Time Encounter Type Encounter Description Reason Provider Source Apr 06, 2025 11:00 AM PSYTX W PT 45 [facility]UTES [facility] - IND ICD-10-CM F43.12 Post-traumatic stress disorder, chronic ARNOL SCHAFER [place] [facility] [employer] Encounter Template Text not used by [place] Assessments - Encounter Diagnoses This section includes the primary and secondary diagnoses documented for the Encounter. Date/Time Primary/Secondary Diagnosis Diagnosis Name Provider Source Apr 06, 2025 01:33 PM PRIMARY Post-traumatic stress disorder, chronic ANUSHA SCHAFER [place] Apr 06, 2025 01:33 PM SECONDARY Major depressive disorder, recurrent, in partial remission ANUSHA SCHAFER [facility] Plan of Treatment: Future Appointments (+ 6 months) and Future Tests (+/- 45 days) The Plan of Treatment section includes future care activities for the patient from all [place] treatmentfacilities. This section includes future appointments and future orders which are active, pending or scheduled. Future Appointments This section includes appointments that were scheduled to occur 6 months from the date of the Encounter, up to a maximum of 20 appointments. The data comes from all [place] treatment facilities. Appointment Date/Time Appointment Type Appointme nt Facility Name Apr 28, 2025 12:30 PM AM[place]AT[place] NONE [place] [facility] [place] [facility] [place] May 02, 2025 01:00 PM AM[facility]ULATORY - NONE [facility] May 02, 2025 01:00 PM [place]ULATORY - [place]ICINE [place] [place] [facility] [place] May 04, 2025 11:00 AM AMBULATORY - PSYCHIATRY [facility] [place] [facility] [place] May 13, 2025 11:00 AM AMBULATORY - PS[place]CHIATRY [facility] [place] [facility] [place] Jun 13, 2025 07:30 AM AMBULATORY - MEDICINE [place] [facility] [place] [facility] [place] Jun 16, 2025 11:00 AM AMBULATORY - [place]CHIATRY [facility] [place] [facility] [place] Jul 20, 2025 10:00 AM [facility] Jul 29, 2025 09:30 AM [facility] - [facility] Active, Pending, and Scheduled Orders This section includes a listing of several types of active, pending, and scheduled orders, including clinic medications orders, diagnostic test orders, procedure orders and consult orders; where the start date of the order is 45 days before the date of the Encounter or 45 days after the date of theEncounter. The data comes from all [place] treatment facilities. Test Date/Time Test Type Test Details Facility Name Feb 23, 2025 12:00 AM Laboratory - Chemistry Order BASIC METABOLIC PANEL (fasting) BLOOD (SST-SERUM) [facility] Feb 23, 2025 12:00 AM Laboratory - Chemistry Order LIVER FUNCTION BLOOD (SST-SERUM) [facility] Feb 23, 2025 12:00 AM Laboratory - Chemistry Order CBC AND DIFF (AUTO) BLOOD (LAV-BLOOD) [facility] Feb 23, 2025 12:00 AM Laboratory - Chemistry Order LIPID PANEL FASTING BLOOD (SST-SERUM) [facility] Feb 23, 2025 12:00 AM Laboratory - Chemistry Order HEMOGLOBIN A1C PANEL BLOOD (LAV-BLOOD) [facility] Feb 23, 2025 12:00 AM Laboratory - Chemistry Order TSH BLOOD (SST-SERUM) [facility] Mar 07, 2025 10:29 AM Consult Order LIVER CLINIC IFC WHAV Cons [employer] [facility] Mar 16, 2025 02:02 PM Consult Order BHIP PSYCHIATRIC MEDICATION/SOPC OUTPT Cons [facility] Att[facility] [place] [facility] [place] [facility] Social History: Smoking Status (Most current) and Tobacco Use (All prior to encounter date) This section includes the most current, and the historical, smoking and tobacco- related health factors from the [place] facility where the Encounter took place. Current Smoking Status This section includes the most current smoking, or tobacco-related health factor, from the [place] facility where the Encounter took place. Date/Time Current Smoking Status Comment Facil ity February 11, 2024 11:00 AM VA-TOBACCO NEVER USED [facility] Encounter Notes: All associated encounter notes This section contains the clinical notes associated to the Encounter. Date/Time Encounter Note(s) Provider Source Apr 06, 2025 01:55 PM ADDENDUM: LOCAL TITLE: Addendum STANDARD TITLE: ADDENDUM DATE OF NOTE: APR 06, 2025@13:55:33 ENTRY DATE: APR 06, 2025@13:55:34 AUTHOR: VINCENT SCHAFER EXP COSIGNER: URGENCY: STATUS: COMPLETED [place] asked greeting card writer to alert her PCP/Pact team that she was diagnosed with basal cell carcinoma on her breast and has follow up address this with [facility]. states that she just wants to make provider aware and is not requesting anything be done. /adryan/ VINCENT SCHAFER CLINICAL PSYCHOLOGIST Signed: 04/06/2025 13:57 Receipt Acknowledged By: 04/12/2025 05:05 /es/ Jacquelyn Bartlett MD MD PRIMARY CARE PHYSICIAN 04/07/2025 13:00 /es/ KENDRA NOLEN LPN Licensed Practical Nurse --- Original Document --- 04/06/25 PSYCHOLOGY NOTE: INFORMED CONSENT REVIEWED: At beginning of session reviewed rights and limits of confidentiality, mandatory reporting situations, duty to warn and protect, [place] Warning, (if treatment team finds patient to be an acute danger to himself or others, that this information could be relayed to a court of law and presented to a compliance representative dealer), and DOD access for active duty service members. Provided Suicide Prevention Hotline number, and other contact numbers as necessary. VISIT DURATION 45 minutes [place] identified with 2 identifiers: Full Name, Facial Recognition DIAGNOSES: MDD, recurrent, in partial remission, Chronic PTSD VETERANS STATEMENT OF GOALS/CONCERNS: [place] has been focused on improving mood and trying to focus on her physical fitness. SESSION FOCUS: [place] reports that she's exhausted from the workout program she's been doing for the past 4 weeks and doesn't feel like she's been adequately able to recover. She's working with the strainer mill operator to try to change some of her nutrition/supplements to improve this and is hoping they'll be able to help her feel better/get more restful sleep. She mentions continued trouble with sleep due to worries/thoughts. [employer] Stabilizer encouraged her to try setting a worry time and we can talk more about what content comes up for her. [employer] Soil Stabilizer also reminds her that [facility] for depression training is next week and we will talk more about that protocol next session. She's looking forward to this. Lastly, she mentions being diagnosed with basal cell carcinoma in her breast and is having this removed by [facility] soon and asked greeting card writer to alert her doctor. INTERVENTIONS: Psychotherapeutic Interventions: active listening, psychoeducation about rationale for worry time, treatment planning ASSESSMENT: BRIEF ASSESSMENT OF MENTAL STATUS: 1. Appearance (grooming, attire, apparent age) within normal limits: Yes 2. Thought content was organized and goal directed: Yes 3. Speech was coherent and unimpaired: Yes 4. Affect was appropriate and unremarkable: Yes 5. Demeanor was calm, with no signs of agitation or restlessness: Yes 6. Sleep was largely unimpaired and restful: No poor sleep, both sleep onset and frequent disruption exacerbated by pain 7. No evidence of psychosis (hallucinations or delusions): Yes 8. Mood was normal: Yes Other Observations: RISK ASSESSMENT: Denies current suicidal/homicidal ideation PLAN FOR FOLLOW-UP: Next session planned for: 04/27@11am Other Scheduled visits: Future Clinic Visits 04/27/2025 11:00 [facility] PSYLG 1 04/28/2025 12:30 [facility] DENTAL DMD 1 05/02/2025 13:00 SPR V01 [facility] LIVER MANUFACTURING STOREPERSON 01 P 05/04/2025 11:00 [facility] PSYLG 1 05/13/2025 11:00 [facility] PSYLG 1 06/13/2025 07:30 [facility] OPTOMETRY 1 AM 06/16/2025 11:00 [facility] PSYTR 1 07/20/2025 10:00 SPR PACT EIGHT MD [place] 07/29/2025 09:30 [facility]-UR[facility] Depression Monitoring (PHQ-9): PHQ-9 A PHQ-9 screen was performed. The score was 8. 1. Little interest or pleasure in doing things Not at all 2. Feeling down, depressed, or hopeless Several days 3. Trouble falling or staying asleep, or sleeping too much Nearly every day 4. Feeling tired or having little energy Nearly every day 5. Poor appetite or overeating Not at all 6. Feeling bad about yourself or that you are a failure or have let yourself or your family down Several days 7. Trouble concentrating on things, such as reading the newspaper or watching television Not at all 8. Moving or speaking so slowly that other people could have noticed. Or the opposite being so fidgety or restless that you have been moving around a lot more than usual Not at all 9. Thoughts that you would be better off or of hurting yourself in some way Not at all 10. If you checked off any problems, how DIFFICULT have these problems made it for you to do your work, take care of things at home or get along with other people? Somewhat difficult [place] had no previous PHQ-9 score to compare to current score to gauge improvement PHQ-9 results discussed with patient /es/ VINCENT SCHAFER CLINICAL PSYCHOLOGIST Signed: 04/06/2025 13:54 VINCENT SCHAFER [facility] Apr 06, 2025 11:05 AM PSYCHOLOGY NOTE: LOCAL TITLE: PSYCHOLOGY NOTE STANDARD TITLE: PSYCHOLOGY NOTE DATE OF NOTE: APR 06, 2025@11:05 ENTRY DATE: APR 06, 2025@11:05:36 AUTHOR: VINCENT SCHAFER EXP COSIGNER: URGENCY: STATUS: COMPLETED PSYCHOLOGY NOTE Has ADDENDA INFORMED CONSENT REVIEWED: At beginning of session reviewed rights and limits of confidentiality, mandatory reporting situations, duty to warn and protect, [place] Warning, (if treatment team finds patient to be an acute danger to himself or others, that this information could be relayed to a court of law and presented to a compliance representative dealer), and [facility] access for active duty service members. Provided Suicide Prevention Hotline number, and other contact numbers as necessary. VISIT DURATION 45 minutes identified with 2 identifiers: Full Name, Facial Recognition DIAGNOSES: MDD, recurrent, in partial remission, Chronic PTSD VETERANS STATEMENT OF GOALS/CONCERNS: has been focused on improving mood and trying to focus on her physical fitness. SESSION FOCUS: reports that she's exhausted from the workout program she's been doing for the past 4 weeks and doesn't feel like she's been adequately able to recover. She's working with the strainer mill operator to try to change some of her nutrition/supplements to improve this and is hoping they'll be able to help her feel better/get more restful sleep. She mentions continued trouble with sleep due to worries/thoughts. [employer] Stabilizer encouraged her to try setting a worry time and we can talk more about what content comes up for her. [employer]ary Soil Stabilizer also reminds her that [facility] for depression training is next week and we will talk more about that protocol next session. She's looking forward to this. Lastly, she mentions being diagnosed with basal cell carcinoma in her breast and is having this removed by [facility] soon and asked greeting card writer to alert her doctor. INTERVENTIONS: Psychotherapeutic Interventions: active listening, psychoeducation about rationale for worry time, treatment planning ASSESSMENT: BRIEF ASSESSMENT OF MENTAL STATUS: 1. Appearance (grooming, attire, apparent age) within normal limits: Yes 2. Thought content was organized and goal directed: Yes 3. Speech was coherent and unimpaired: Yes 4. Affect was appropriate and unremarkable: Yes 5. Demeanor was calm, with no signs of agitation or restlessness: Yes 6. Sleep was largely unimpaired and restful: No poor sleep, both sleep onset and frequent disruption exacerbated by pain 7. No evidence of psychosis (hallucinations or delusions): Yes 8. Mood was normal: Yes Other Observations: RISK ASSESSMENT: Denies current suicidal/homicidal ideation PLAN FOR FOLLOW-UP: Next session planned for: 04/27@11am Other Scheduled visits: Future Clinic Visits 04/27/2025 11:00 SPR MHC PSYLG 1 04/28/2025 12:30 [facility] DENTAL DMD 1 05/02/2025 13:00 SPR V01 [facility] LIVER MANUFACTURING STOREPERSON 01 P 05/04/2025 11:00 [facility] MHC PSYLG 1 05/13/2025 11:00 [facility] PSYLG 1 06/13/2025 07:30 [facility] OPTOMETRY 1 AM 06/16/2025 11:00 [facility] PSYTR 1 07/20/2025 10:00 SPR PACT EIGHT MD [place] 07/29/2025 09:30 [facility] Depression Monitoring (PHQ-9): PHQ-9 A PHQ-9 screen was performed. The score was 8. 1. Little interest or pleasure in doing things Not at all 2. Feeling down, depressed, or hopeless Several days 3. Trouble falling or staying asleep, or sleeping too much Nearly every day 4. Feeling tired or having little energy Nearly every day 5. Poor appetite or overeating Not at all 6. Feeling bad about yourself or that you are a failure or have let yourself or your family down Several days 7. Trouble concentrating on things, such as reading the newspaper or watching television Not at all 8. Moving or speaking so slowly that other people could have noticed. Or the opposite being so fidgety or restless that you have been moving around a lot more than usual Not at all 9. Thoughts that you would be better off or of hurting yourself in some way Not at all 10. If you checked off any problems, how DIFFICULT have these problems made it for you to do your work, take care of things at home or get along with other people? Somewhat difficult [place] had no previous PHQ-9 score to compare to current score to gauge improvement PHQ-9 results discussed with patient /adryan/ VINCENT SCHAFER CLINICAL PSYCHOLOGIST Signed: 04/06/2025 13:54 04/06/2025 ADDENDUM STATUS: COMPLETED [place] asked greeting card writer to alert her PCP/Pact team that she was diagnosed with basal cell carcinoma on her breast and has follow up address this with [facility]. states that she just wants to make provider aware and is not requesting anything be done. /es/ VINCENT SCHAFER CLINICAL PSYCHOLOGIST Signed: 04/06/2025 13:57 Receipt Acknowledged By: * AWAITING SIGNATURE * JACQUELYN BARTLETT * AWAITING SIGNATURE * KENDRA NOLEN CHRISTINE G [place]
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
--- NOTE | 2025-04-27 11:31 | ED.GENADULT ---
HPI - General Adult General Chief complaint: Head Injury Stated complaint: Head injury Fri, headache, dizzy Time Seen by Provider: 04/27/25 11:55 Source: patient and family () Mode of arrival: ambulatory Limitations: no limitations History of Present Illness ED Provider: Dr. Joe Holder HPI narrative: 64-year-old female with a history of hypertension, hyperlipidemia, coronary artery disease, paroxysmal atrial fibrillation, depression who presents emergency department for evaluation of right-sided headache after a head injury on 04/22/2025 (5 days prior to evaluation). The patient states that she was vacuuming at home when she bent over and struck the right side of her temporal area on a table. She had no loss of consciousness. She states that she developed immediate headache on the right side of her head. She states the headache has been constant since onset varying from 4/10 to 10/10. At the time my evaluation in the emergency department her pain was 4/10. She states she has had some dizziness and nausea associated with the headache. She denied numbness, weakness, blurred vision. Patient took ibuprofen and Tylenol with no relief for pain. She also took 1 of her oxycodone that she uses for knee pain with no relief for pain. She states she is having difficulty sleeping at night secondary to the severity of the pain. She denied other symptoms such as fever, chills, rhinorrhea, cough, sore throat. Related Data Home Medications ?Medication ?Instructions ?Recorded ?Confirmed olmesartan 40 mg tablet 40 mg PO DAILY 05/09/21 05/29/23 aspirin 81 mg tablet,delayed 81 mg PO BEDTIME 05/23/23 05/29/23 release ondansetron HCl 4 mg tablet 4 mg PO Q6H PRN nausea 05/23/23 05/29/23 rosuvastatin 40 mg tablet 40 mg PO BEDTIME 05/23/23 05/29/23 dicyclomine 20 mg tablet 20 mg PO QID 03/01/24 03/01/24 fluticasone propionate 50 spray intranasal 03/01/24 03/01/24 mcg/actuation nasal spray,suspension linaclotide 145 mcg capsule 145 mcg PO DAILY 03/01/24 03/01/24 (Linzess) Previous Rx's ?Medication ?Instructions ?Recorded amlodipine 2.5 mg tablet (Norvasc) 2.5 mg PO DAILY 90 days #90 tabs 11/19/21 escitalopram oxalate 5 mg tablet 5 mg PO DAILY #90 tabs 10/12/24 lorazepam 0.5 mg tablet 0.5 mg PO TID PRN anxiety #90 tabs 01/06/25 lamotrigine 150 mg tablet 225 mg (1.5 x 150 mg) PO DAILY #90 03/20/25 tabs metoclopramide HCl 10 mg tablet 10 mg PO Q6H PRN Headache, nausea 04/27/25 (Reglan) and vomiting #14 tabs Allergies Allergy/AdvReac Type Severity Reaction Status Date / Time amoxicillin (Amoxicillin) Allergy Mild RASH Verified 04/27/25 11:32 cefaclor (From Ceclor) Allergy Mild RASH Verified 04/27/25 11:32 Sulfa (Sulfonamide Allergy Mild RASH Verified 04/27/25 11:32 Antibiotics) (Sulfa HIVES, rash (Sulfonamides)) doxycycline (DOXYCYCLINE) Allergy Unknown ULCER Verified 04/27/25 11:32 Review of Systems Review of Systems: Yes all other systems are reviewed and are negative [facility] Past Medical History [facility] Narrative: Social history: She is and she lives with her . Her 's in the emergency department with her. Medical History Generalized anxiety disorder Major depression, recurrent, chronic CAD (coronary artery disease) Hyperlipidemia Bladder cancer Family history of premature coronary artery disease HTN (hypertension) Paroxysmal atrial fibrillation Surgical History History of colonoscopy History of 2 sections History of partial hysterectomy History of right inguinal hernia repair (2003) History of cholecystectomy S/P cardiac cath History of hip surgery Family History Family History Father CAD (coronary artery disease) Mother HTN (hypertension) Cancer Brother HTN (hypertension) Sister HTN (hypertension) Paternal Grandmother Stroke Paternal Grandfather CAD (coronary artery disease) Paternal Uncle CAD (coronary artery disease) Maternal Grandmother Colon cancer Maternal Aunt Colon cancer Social History Social History Household Members: Spouse and Children Housing: Care Home Do you presently have visiting nurse or other home services: No Alcohol intake: former Patient Tobacco Use Status: Never used Tobacco Substance Use Type: Marijuana Advance Directives: No Advance Directives Information Provided: Yes service: Yes Physical Exam ED Vital Signs: Vital Signs - 24 hr 04/27/25 11:32 Temperature 97.1 F Pulse Rate 54 Respiratory Rate 16 Blood Pressure 155/72 H Pulse Oximetry 97 Oxygen Delivery Method Room Air BMI result Body Mass Index 29.7 Vital signs revealed an elevated blood pressure of 155/72 otherwise unremarkable. Exam: General: Awake, alert in no distress Head: Normocephalic, patient has a small abrasion located over her right temporal area which is tender to palpation, no ecchymosis EENT: PERRL, Lids normal, sclera normal, conjunctiva normal, nose normal , ears normal, throat without erythema or exudates Neck: Supple, no adenopathy Lung: breath sounds symmetric, no wheezing, rales or rhonchi Chest: symmetric movement, nontender Heart: regular rate and rhythm, normal S1, S2 no murmurs or rubs Abdomen: soft, non-tender, nondistended, normal bowel sounds Back: no vertebral tenderness, no CVAT Extremities: no deformities, moves all extremities symmetrically Neuro: General: ?Awake, alert, oriented, normal speech Cranial nerves: ?Cranial nerves ?intact Strength: ?Moves all extremities symmetrically, strength 5/5 Cerebellar: ?Good elngij-ql-ktgm-to-finger, good rapid finger movement, normal heel to aranda Psych: Pleasant, cooperative Course Course Course Narrative: This is a rapid medical exam performed by Sana Jimenez NP: Additional HPI, ROS, PE not included below will be deferred to primary provider. Patient is a 64-year-old female with history of paroxysmal afib, HTN, HLD, CAD, PTSD, anxiety and depression presenting to the ED with complaint of headache. On Friday was cleaning and bumped the corner of a table on her right anabaptism, has had a headache since then. Denies LOC. Associated dizziness and nausea, pain radiates through anabaptism and behind right eye. Feels significant pressure behind right eye, denies vision changes. Not improving with medication. Not anticoagulated but takes daily ASA. Plan: CT head Medical Decision Making Medical Decision Making MDM Narrative: 64-year-old female with a history of hypertension, hyperlipidemia, coronary artery disease, paroxysmal atrial fibrillation, depression who presents emergency department for evaluation of right-sided headache after a head injury on 04/22/2025 (5 days prior to evaluation). The patient states that she was vacuuming at home when she bent over and struck the right side of her temporal area on a table. She had no loss of consciousness. She states that she developed immediate headache on the right side of her head. She states the headache has been constant since onset varying from 4/10 to 10/10. At the time my evaluation in the emergency department her pain was 4/10. She states she has had some dizziness and nausea associated with the headache. She denied numbness, weakness, blurred vision. Patient took ibuprofen and Tylenol with no relief for pain. She also took 1 of her oxycodone that she uses for knee pain with no relief for pain. She states she is having difficulty sleeping at night secondary to the severity of the pain. Vital signs revealed an elevated blood pressure. Exam revealed an abrasion with tenderness to the right temporal area of her scalp with normal neurologic exam Differential diagnosis: ?Includes but is not limited to skull fracture, intracranial bleed, post traumatic headache, closed head injury, migraine headache Course: Patient's CT scan of the brain revealed no skull fracture and no intracranial bleed which is reassuring. Patient did have 2 incidental findings which I did discuss with her and her . Patient most likely has a posttraumatic headache and I did discuss this with her. Patient was treated here in the emergency department with Reglan 10 mg, Benadryl 50 mg, Tylenol 975 mg and aspirin 81 mg orally. Patient was advised to take the following regimen every 6 hours as needed for headaches: Reglan 10 mg, Benadryl 50 mg, Excedrin migraine 2 tablets. She was given printed and verbal instructions and discharged home. She was advised to follow up with her PCP to discuss the incidental findings on the CT scan. I do not think that they are related to her headache. Admission/Observation Consideration of admission/observation: Escalation of care including admission/observation considered (Yes) Radiology Impression Discussion of test interpretation with radiology: I have reviewed the radiologist's reading. Radiologist Impression: CT head/brain wo IV con IMPRESSION: No acute fracture, bony calvarium. No acute intracranial hemorrhage. High riding right internal jugular bulb. Low-lying cerebellar tonsils. Electronically signed by: Guillermo Meyer MD 04/27/2025 12:01 PM Independent Historian Clinical information obtained from an independent historian. History obtained from or confirmed by: Spouse Prescription Management I considered prescription management with: Other (Anti migraine medication: Reglan) Chronic Conditions Patient?s care impacted by: Hypertension and Other (Hyperlipidemia, coronary artery disease) Discharge Plan Discharge Clinical Impression: Closed head injury Qualifiers: Encounter type: initial encounter Qualified Code(s): S09.90XA - Unspecified injury of head, initial encounter Headache Qualifiers: Headache type: post-traumatic Headache chronicity pattern: acute headache Intractability: intractable Qualified Code(s): G44.311 - Acute post-traumatic headache, intractable Patient Disposition: Home, Self-Care Instructions: Head Injury (DC), Acute Headache (ED) Additional Instructions: The CT scan of your head did not reveal any skull fracture bleeding in the brain which is reassuring. You had 2 incidental findings that I do not think are related to your headache and do not need any further follow-up. Please see the reading below in you can review this with your doctor at your next visit. I want you to take the following 3 medications together every 6 hours as needed for headache, nausea or vomiting. Reglan (metoclopramide) in 10 mg, 1 pill Benadry (diphenhydramine) l 25 mg, 2 pills Excedrin migraine (acetaminophen, aspirin, caffeine), 2 pills. After you take these medications, lie down in a dark quiet room and try to fall asleep. ?These medications will make you sleepy, do not drive or work after taking these medications. Follow-up with your doctor in 2 days. Please return to the emergency department if your symptoms get worse or if you develop any symptoms that are concerning to you. Prescriptions: New metoclopramide HCl [Reglan] 10 mg tablet 10 mg PO Q6H PRN (Reason: Headache, nausea and vomiting) Qty: 14 0RF No Action amlodipine [Norvasc] 2.5 mg tablet 2.5 mg PO DAILY 90 Days Qty: 90 0RF Rx Instructions: Please call and schedule follow-up and do lab work lorazepam 0.5 mg tablet 0.5 mg PO TID PRN (Reason: anxiety) Qty: 90 2RF lamotrigine 150 mg tablet 225 mg PO DAILY Qty: 90 1RF ondansetron HCl 4 mg tablet 4 mg PO Q6H PRN (Reason: nausea) rosuvastatin 40 mg tablet 40 mg PO BEDTIME aspirin 81 mg Tablet,Delayed Release (Dr/Ec) 81 mg PO BEDTIME olmesartan 40 mg tablet 40 mg PO DAILY dicyclomine 20 mg tablet 20 mg PO QID fluticasone propionate 50 mcg/actuation spray,suspension intranasal Linzess 145 mcg capsule 145 mcg PO DAILY escitalopram oxalate 5 mg tablet 5 mg PO DAILY Qty: 90 0RF Print Language: Syriac
[2025-04-27 11:32] VITALS: BP 155/72; PULSE 54; RESP 16; TEMP 36.2; O2SAT 97; BMI 29.7
--- OUTSIDE RECORDS SUMMARY | 2025-04-27 12:57 | XMS_ITS | Clinical Summary ---
Author Organization [facility] Facility Address [address] [place] [id number] Care Team Providers Care Diesel Electrician Name Role Phone Zackery Gallardo MD Primary Care Provider [phone] Medications olmesartan (BENICAR) 40 MG tablet TAKE [...] Colonoscopy 2010 Colorectal Cancer Screening: Sigmoidoscopy 2010 Pneumococcal Vaccine: 50+ Ye ars (1 of 1 - PCV) 2011 Influenza Vaccine (#1) 2025 Hepatitis B Vaccine Aged Out No longe r eligible based on patient's age to complete this topic Care Teams Diesel Electrician Relationship Specialty Start Date End Date Zackery Gallardo MD [address] [place] [address] [address] KADINER[address] HARPER PCP - General 09/25/20
--- OUTSIDE RECORDS SUMMARY | 2025-04-27 12:57 | XMS_ITS | Encounter Summary ---
Author Organization [facility] Address [address] [facility] [place] [address] [place] [phone] Phone Care Team Providers Care Verifier Operator Name Role Phone Zackery Gallardo MD Primary Care Provider [phone] Encounter Details Date Type Department Care Team (Late st Contact Info) Description 11/26/2023 Procedure Pass [facility] Endoscopy Admitting Dept Virtual Department [address] [place] [address] Social History Tobacco Use Types Packs/Day Years Used Date Smoking Tobacco: Never Smokeless Tobacco: Never Alcohol Use Standard Drinks/Week Comments Yes 0 (1 standard drink = 0.6 oz pur e alcohol) once a week sometimes Education Answer Date Recorded Are you interested in more education? Not on gallo e 01/25/2023 Are you concerned about learning? Not on file 01/25/2023 No 01/25/2023 No 01/25/2023 Digital Access Answer Date Recorded No 02/09/2023 No 02/09/2023 Reliable internet access at home? Not on file 02/09/2023 Device with a working camera? Not on file Intimate Partner Violence Answer Date R ecorded Are you denied basic needs s uch as food, clothing, or medical care? No 11/26/2023 In the past 12 months have y ou been in a relationship with a person who hurts, threatens, or tries to control you? No 11/26/2023 Are you denied basic needs s uch as food, clothing, or medical care? No 11/26/2023 In the past 12 months have y ou been in a relationship with a person who hurts, threatens, or tries to control you? No 11/26/2023 Comments No Sex and Gender Information Value Date Recorded Sex Assigned at Female 11/19/2023 8:43 AM EST Legal Sex Female 7:02 PM EST Gender Identity Female 11/19/2023 8:43 AM EST Sexual Orientation Straight 11/19/2023 8: 43 AM EST documented as of this encounter Plan of Treatment Not on file documented as of this encounter Visit Diagnoses Not on filedocumented in this encounter Care Teams Verifier Operator Relationship Specialty Start Date End Date Zackery Gallardo MD [address] [place] [id number] PCP - General 09/18/17 documented as of this encounter Additional Source Comments The information contained in this document represents components of the legal health record. It is not the complete legal health record.[facility]
--- OUTSIDE RECORDS SUMMARY | 2025-04-27 12:57 | XMS_ITS | Clinical Summary ---
Author Organization [facility] [place] [address] Care Team Providers Care Highway Maintenance Crew Worker Name Role Phone Unknown Primary Care Provider Unavailabl e Allergies Active Allergy Reactions Criticality Noted Date Comments Amoxicillin Trihydrate CIS - Rash Cefaclor Sulfa (Sulfonamide Antibiotics) CIS - Rash Medications ibuprofen (ADVIL;MOTRIN) 400 mg tablet 10/28/2007 Active multivitamin (THERAGRAN) tablet 10/28/2007 Active CALCIUM ORAL 10/28/2007 Active OMEPRAZOLE (PRILOSEC ORAL) 10/28/2007 Act levy buPROPion (WELLBUTRIN SR) 150 mg 12 hr tablet 10/28/2007 Active estrogens conjugated, synthetic A, (CENESTIN) 1.25 mg tablet 10/28/2007 Active citalopram (CELEXA) 20 mg tablet 10/28/2007 Active Social History Tobacco Use Types Packs/Day Years Used Date Smoking Tobacco: Never Assessed Comments Unknown Sex and Gender Information Value Date Recorded Sex Assigned at Not on file Legal Sex Female 7:12 AM EST Gender Identity Not on file Sexual Orientation Not on file Plan of Treatment Health Maintenance Due Date Last Done Comments CT Colonography 1961 Colonoscopy 1961 Colorectal Cancer Screening 1961 FIT DNA 1961 FIT 1961 Sigmoidoscopy (10 year) with FIT yearly 1961 Sigmoidoscopy 1961 HIV screen 1979 Hepatitis C Screening 1979 Tetanus/Diphtheria/Pertussis Vaccines (1 - Tdap) 07/17 HPV test 1991 PAP Smear 1991 Breast Cancer Share Decision Needed 2001 Breast Cancer screening 2001 Pneumoccocal Vaccine: 50+ (1 of 1 - PCV) 2011 Zoster vaccine (1 of 2) 2011 Advance Directive 2016 Covid-19 Vaccine ( season) 2024 Influenza (Flu) vaccine (1 o f 1 - Influenza standard series) 05/16/[address] Maintenance Crew Worker Relationship Specialty Start Date End Date Unknown None PCP - General 04/12/24
--- OUTSIDE RECORDS SUMMARY | 2025-04-27 12:57 | XMS_ITS | Clinical Summary ---
Author Organization [facility] Address [address] [place] [address] Care Team Providers Care Compensation And Benefits Analyst Name Role Phone Zackery Gallardo MD Primary Care Provider [phone] Allergies Active Allergy Reactions Criticality Noted Date [...] Hyperlipidemia Brother Hypertension Brother Heart disease Father [place] Hyperlipidemia Father Hypertension Father Cancer Mother LUNG [...] 64 09/21/2020 8:24 AM EST Temperature 36.7 C (98 F) 07/25/2020 8:09 AM EST Respiratory Rate 18 [...] o f 2) 2011 Influenza Vaccine (#1) 2025 , 05/30/2017, 07/21/2013 RSV Adult > 60+ [...] this topic Medical Devices Implanted Type Area Care Process Manager Device Identifier Shelf Expiration Date Model / Serial / Lot Liner Lfit D 3.9mm 36mm Expanded X3 Acetabular - [id number] - [id number] Implanted:Qty: 1 on 07/24/2020 by Arvin Feliz MD at [facility] Left: Hip [employer] [id number] 06/05/2025 [id number] / / [id number] Shell Trident Ii D 50mm 3 Screw Hole Cluster Tritanium - [id number] - [id number] Implanted:Qty: 1 on 07/24/2020 by Arvin Feliz MD at [facility] Left: Hip [employer] [id number] 05/28/2025 702-04-50D / / [id number] Screw Trident Ii 30mm 6.5mm Low Profile Hexagonal Bone - [id number] - [id number] Implanted:Qty: 1 on 07/24/2020 by Arvin Feliz MD at [facility] Left: Hip [employer] [id number] 03/07/2025 [id number] / / [id number] Screw Trident Ii 30mm 6.5mm Low Profile Hexagonal Bone - [id number] - [id number] Implanted:Qty: 1 on 07/24/2020 by Arvin Feliz MD at [facility] Left: Hip [employer] [id number] 03/01/2025 [id number] / / [id number] Stem Accolade Ii 4 132d Femoral - [id number] - [id number] Implanted:Qty: 1 on 07/24/2020 by Arvin Feliz MD at [facility] Left: Hip [employer] [id number] 10/16/2024 [id number] / / [id number] Head V40 Standard 36mm Enhanced Stability Proven Modularity - [id number] - [id number] Implanted:Qty: 1 on 07/24/2020 by Arvin Feliz MD at [facility] Left: Hip [employer] [id number] 05/12/2025 6570-0-136 / / [id number] Advance Directives For more information, please contact: [phone] Latest Code Status on File Code Status [...] way: discussion with patient . Care Teams Compensation And Benefits Analyst Relationship Specialty Start Date End Date Zackery Gallardo MD [address] [id number] PCP - General Oncology 07/18/20
--- OUTSIDE RECORDS SUMMARY | 2025-04-27 12:57 | XMS_ITS | Clinical Summary ---
Author Organization [facility] Address [address] [place] [address] Phone Care Team Providers Care Artist Model Name Role Phone Zackery Gallardo MD Primary Care Provider Allergies Active Allergy Reactions Criticality Noted Date Comments Amoxicillin 09/29/2017 Other Reaction(s): Rash/Dermatitis Cefaclor 09/29/2017 Ceclor Other Reaction(s): Rash/Dermatitis Doxycycline GI intolerance 09/29/2017 Pregabalin 10/25/2021 Sulfa (Sulfonamide Antibiotics) 09/29/2017 Sulfa Drugs Other Reaction(s): Rash/Dermatitis Medications aspirin 81 mg chewable tablet Take 1 Tablet by mouth daily. 2 Active escitalopram (LEXAPRO) 5 mg tablet Take 1 Tablet by mouth daily. Active lamoTRIgine (LaMICtal) 150 mg tablet Take 150 mg by mouth 2 times daily. Active linaCLOtide (LINZESS) 145 mcg capsule Take 1 Capsule by mouth daily. Active LORazepam (ATIVAN) 0.5 mg tablet Take 1 Tab by mouth every 6 hours as needed for Anxiety for up to 7 days. 9 Active ondansetron (ZOFRAN) 4 mg tablet Take 1-2 Tablets by mouth as needed. Active phenazopyridine (PYRIDIUM) 200 mg tablet Take 200 mg by mouth as needed. Active Linzess 290 mcg capsule Take 1 capsule (290 mcg total) by mouth if needed. 4 Active oxyCODONE (ROXICODONE) 5 mg immediate release tablet Take by mouth every 6 (six) hours if needed. for pain Active meclizine (ANTIVERT) 25 mg tablet TAKE 1 TABLET BY MOUTH NEEDED 3 TIMES A DAY X 10 DAYS 4 Active estradioL (ESTRACE) 0.01 % (0.1 mg/gram) vaginal cream Insert 2 g into the vagina 1 (one) time per week. Active sodium chloride (SALINE SPRAY MISC) Inhale by mouth if needed. Active rosuvastatin (CRESTOR) 40 mg tablet Take 1 tablet (40 mg total) by mouth 1 (one) time each day. 90 tablet 2 5 Active amLODIPine (NORVASC) 5 mg tabletIndications :Coronary artery disease involving asa'carsarmiut coronary artery of asa'carsarmiut heart without angina pectoris Take 1 tablet (5 mg total) by mouth 1 (one) time each day. 90 tablet 2 5 Active olmesartan (BENICAR) 40 mg tabletIndications :Essential (primary) hypertension Take 1 tablet (40 mg total) by mouth 1 (one) time each day. 90 tablet 2 5 Active Active Problems Problem Noted Date Diagnosed Date Essential (primary) hypertension 02/18/2025 Assessment & Plan (02/18/2025 11:25 AM EDT): Blood pressure is reasonable with a reading today of 130/70. With olmesartan 40 mg once a day as prescribed. Chronic midline low back pain without sciatica 0 11/25/2024 Assessment & Plan (11/25/2024 4:26 PM EDT): I reviewed the imaging study in detail with Ms. Eugene and reassured her that it is a nearly normal study. The left L3 annular tear and disc bulge are not the source of her midline lumbosacral pain and there is no surgery recommended. These tears usually heal over time. She did not have any relief of her lower back pain from the left L3 transforaminal injection so I believe it is asymptomatic. The patient states that she has had intermittent leg weakness which she thought was due to her gait imbalance from her right knee osteoarthritis and Dr. Figueroa's notes actually document some weakness in the left hip flexion and knee extension however, there was no weakness on exam today with a couple of rounds of resistance testing. I considered that she may have sacroiliitis however, provocative testing was negative Dr. Figueroa's office and she tells me that she is able to sleep on both sides at night without provoking the back pain. At this point, I recommend that she try physical therapy however she is currently in PT for her right knee and needs to complete that which will take several weeks. In the interim, she has a TENS unit at home and I discussed with her where to position the leads to try it for her low back pain. Depression 10/07/2024 Hyperlipidemia 10/07/2024 Assessment & Plan (02/18/2025 11:25 AM EDT): We will update a lipid panel in 6 months. We did discuss the possibility of adding Zetia given that her LDL cholesterol was 104 and slightly above goal at this time she would like to trial continuing with low-fat diet. Coronary artery disease 11/01/2021 Assessment & Plan (02/18/2025 11:25 AM EDT): Patient has history of coronary artery disease status post single-vessel stenting. She is active without any exertional symptoms and continues on cardioprotective medical therapy with aspirin and statin. I have reviewed with the patient the importance of a heart healthy lifestyle which includes eating a low-fat low-salt diet, getting regular exercise, maintaining a healthy weight, not smoking, and following up with routine medical care. Obesity 10/25/2021 PAF (paroxysmal atrial fibri llation) ([facility] V24, [facility] V28) 10/25/2021 Assessment & Plan (02/18/2025 11:25 AM EDT): Patient with 1 episode of documented paroxysmal atrial fibrillation. No further episodes. 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 She denies any symptoms of recurrence and is no longer on anticoagulation. Pulmonary nodules 03/23/2019 Obstructive sleep apnea 03/03/2019 Overview (10/07/2024): Obstructive sleep apnea mild SHUN [facility] Home Sleep Apnea Test: Date 03/01/2019; Wt 210#; BMI 35; SHUN 11, AI 1; HI 8; Unclassified apneas 0; Obstructive apneas 6; Central apneas 3; Mixed apneas 1; hypopneas 86; average oxygen saturation 92% (lowest 86% without saturations <88% for 5% or more of study) - Obstructive Sleep Apnea - mild; mostly hypopneas; without sleep related hypoventilation by 2019 home polysomnogram. Encounters Date Type Department Care Team Description 04/20/2025 Telephone [facility] [address] [place] [address] Prakash Fuentes MD Medication 03/07/[address] [facility] [address] [place] [address] Zackery Gallardo MD Medical Records 02/18/2025 8:40 AM EDT Office Visit [facility] [address] [place] [address] Barbara Mcgarry, EVAN Coronary artery disease involving asa'carsarmiut coronary artery of asa'carsarmiut heart without angina pectoris (Primary Dx); Mixed hyperlipidemia; PAF (paroxysmal atrial fibrillation) (CMS/HCC V24, CMS/HCC V28); Essential (primary) hypertension from Last 3 Months Immunizations Name Administration Dates Next Due Influenza trivalent, 0.5mL, preservative free (Fluarix; FluLaval; Fluzone) ages 6mo and older (Afluria) 3 years and older 05/30/2017 Surgical History Surgery Date Site/Laterality Comments HYSTERECTOMY PROCEDURE:HYSTERECTOMY SECTION PROCEDURE: SECTION KNEE SURGERY PROCEDURE:KNEE SURGERY NECK SURGERY PROCEDURE:NECK SURGERY TURBINOPLASTY PROCEDURE:TURBINOPLASTY TOTAL HIP ARTHROPLASTY 07/24/2020 Left PROCEDURE:TOTAL HIP ARTHROPLASTY;COMMENT:Procedu re: REPLACEMENT TOTAL HIP; Surgeon: Arvin Feliz MD; Location: [facility] Service: Orthopedics; Laterality: Left; BREAST SURGERY 2002 Right PROCEDURE: NE UNLISTED PROCEDURE BREAST; COMMENT: neg UPPER GASTROINTESTINAL [...] BSO OTHER SURGICAL HISTORY 07/24/2020 Left PROCEDURE: NE ARTHRP ACETBLR/PROX FEM PROSTC AGRFT/ALGRFT; COMMENT: L [...] DX:PONV (postoperative nause a and vomiting) Cancer ([facility] V24, [facility] V28) DX:Cancer (HCC);COMMENT:BLADDER-CHEMO History of transfusion DX:Histor y of transfusion Osteoarthritis DX:Osteoarthriti s Sleep apnea, obstructive DX:Slee p apnea, obstructive;COMMENT:Mild MEENA and central sleep apnea per pulmonology note 02/2020-not COMPLIANT WITH CPAP Bladder cancer ([facility] V24, [facility] V28) DX:Bladder cancer ([facility]); COM MENT: Follows with Dr. Lopez and in [place] Hyperlipidemia DX:Hyperlipidemi a Depression DX:Depression Left elbow [...] disease 11/01/2021 PAF (paroxysmal atrial fibri llation) ([facility] V24, [facility] V28) 10/25/2021 Family History Medical History Relation Name Comments Cancer Brother 1 SKIN-MELANOMA Heart disease Brother 1 Hyperlipidemia Brother 1 Hypertension Brother 1 No Known Problems Brother 2 No Known Problems Daughter 1 No Known Problems Daughter 2 No Known Problems Daughter 3 No Known Problems Daughter 4 Heart attack Father Heart disease Father [place] Hyperlipidemia Father Hypertension Father Other: Cardiac Disease [...] drink = 0.6 oz pur e alcohol) Comments Unknown Sex and Gender Information Value Date Recorded Sex Assigned at Not on file Legal Sex Female 11:17 PM EST Gender Identity Not on file Sexual Orientation Not on file Obstetrics History Last Filed Vital Signs Vital Sign Reading Time Taken Comments Blood Pressure 130/70 02/18/2025 8:50 AM EDT Pulse 58 02/18/2025 8:50 AM EDT Temperature - - Respiratory Rate - - Oxygen Saturation 96% 02/18/2025 8:50 AM EDT Inhaled Oxygen Concentration - - Weight 75.8 kg (167 lb) 02/18/2025 8:50 AM EDT Height 163.8 cm (5' 4.5 ) 02/18/2025 8:50 AM EDT Body Mass Index 28.22 02/18/2025 8:50 AM EDT Plan of Treatment Upcoming Encounters Date Type Department Care Team (Late st Contact Info) Description 04/28/2025 8:30 AM EDT Ancillary Procedure [facility] [address] [place] [address] Health Maintenance Due Date Last Done Comments Zoster Vaccines (1 of 2) 1980 Cervical Cancer Screening: Pap Smear 1982 Pneumococcal Vaccine: 50+ Years (1 of 1 - PCV) 2011 Cholesterol Screening (Lipid Panel) 08/24/2022 HIV Screening 08/24/2022 Hypertension/CHF/CAD Annual BMP Blood Test 08/24/2022 Medicare Annual Wellness Visit 08/24/2022 Social Influencers of Health Screening 08/24/2022 COVID-19 Vaccine ( season) 2024 06/28/2023, 06/30/2022, 10/13/2021, Additional history exists Depression Screening 09/15/2024 Influenza Vaccine (#1) 2025 4, 05/16/2024, 06/20/2023, Additional history exists Breast Cancer Screening 02/12/2026 02/13/20 24, 02/13/2024, 02/04/2023, Additional history exists Colorectal Cancer Screening: Colonoscopy 05/07/2028 05/07/2018 DTaP,Tdap,and Td Vaccines (2 - Td or Tdap) 01/30/2033 01/30/2023 RSV Immunization Adult Patients (1 - 1-dose 75+ series) 2036 Hepatitis C Screening Completed 04/30/2022 HIB Vaccines [...] patient's age to complete this topic Meningococcal B Vaccine Aged Out No l onger eligible based on patient's age to complete this topic RSV Immunization Patients Under 20 months Aged Out No longer eligible based on patient's age to complete this topic Varicella Vaccines Aged Out No longer eligible based on patient's age to complete this topic Medical Devices Implanted Type Area Software Applications Developer Device Identifier Shelf Expiration Date Model / Serial / Lot Liner Lfit D 3.9mm 36mm Expanded X3 Acetabular - [id number] Implanted:Qty: 1 on 07/24/2020 by Arvin Feliz MD Left: Hip [employer] [id number] 06/05/2025 623-00-36D / / [id number] Shell Trident Ii D 50mm 3 Screw Hole Cluster Tritanium - [id number] Implanted:Qty: 1 on 07/24/2020 by Arvin Feliz MD Left: Hip [employer] [id number] 05/28/2025 702-04-50D / / [id number] Screw Trident Ii 30mm 6.5mm Low Profile Hexagonal Bone - [id number] Implanted:Qty: 1 on 07/24/2020 by Arvin Felzi MD Left: Hip [employer] [id number] 03/07/2025 3650-9162 / / [id number] Screw Trident Ii 30mm 6.5mm Low Profile Hexagonal Bone - [id number] Implanted:Qty: 1 on 07/24/2020 by Arvin Feliz MD Left: Hip [employer] [id number] 03/01/2025 [id number] / / [id number] Stem Accolade Ii 4 132d Femoral - [id number] Implanted:Qty: 1 on 07/24/2020 by Arvin Feliz MD Left: Hip [employer] [id number] 10/16/2024 7410-9563 / / [id number] Head V40 Standard 36mm Enhanced Stability Proven Modularity - [id number] Implanted:Qty: 1 on 07/24/2020 by Arvin Feliz MD Left: Hip [employer] [id number] 05/12/2025 6570-0-136 / / [id number] Procedures Procedure Name Priority Date/Time Associated Diagnosis [...] are composed of fatty and fibroglandular tissue. No suspicious mass, architectural distortion or suspicious calcifications [...] (<15%) Zackery Gallardo MD IMG XR PROCEDURES Final Result * Hepatitis C Screening (04/30/2022) Pathologist [facility] Hepatitis C Screening abstracted Historical Provider HEALTH MAINTENANCE Final Result * Colonoscopy (05/07/2018) Colonoscopy normal, abstracted Anatomical Region Laterality Modality Other Historical Provider HEALTH MAINTENANCE Final Result from Last 3 Months or Most Recently Relevant to Health Maintenance Insurance MEDICARE [place]ICAID [place] [facility] [facility] Care Teams Artist Model Relationship Specialty Start Date End Date Zackery Gallardo MD [address] [address] PCP - General Oncology 10/06/24
[2025-04-27 13:23] VITALS: BP 106/67; PULSE 50; RESP 16; TEMP 36.2; O2SAT 97
== END 2025-04-27 13:24 | disposition home or self-care (01) ==
PROVIDERS: Emergency Provider Emergency Medicine Emergency Medical Services; PCP Internal Medicine Medical Oncology
DX: G44.311 Acute post-traumatic headache, intractable (principal); R42 Dizziness and giddiness; I25.10 Atherosclerotic heart disease of native coronary artery without angina pectoris; R11.0 Nausea; Z79.899 Other long term (current) drug therapy
CPT/HCPCS: 70450; 99283; 99284

== ENCOUNTER → 2025-04-27 11:34 | Outpatient (BNV) | payer MEDICARE, OTHER, SELFPAY | PROVIDERS: Emergency Provider Emergency Medicine Emergency Medical Services; PCP Internal Medicine Medical Oncology; Visit Provider Radiology Diagnostic Radiology | DX: S09.90XA Unspecified injury of head, initial encounter (principal) | CPT/HCPCS: 70450 ==

== ENCOUNTER 2025-06-06 11:33 | Outpatient (AMB) | payer MEDICARE, OTHER, SELFPAY ==
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
--- OUTSIDE RECORDS SUMMARY | 2025-06-06 14:11 | XMS_ITS | Clinical Summary ---
Author Organization [facility] Address [address] [place] [address] Care Team Providers Care Computer Systems Hardware Analyst Name Role Phone Zackery Gallardo MD Primary Care Provider [phone] Allergies Active Allergy Reactions Criticality Noted Date [...] Hyperlipidemia Brother Hypertension Brother Heart disease Father [place] Hyperlipidemia Father Hypertension Father Cancer Mother LUNG [...] this topic Medical Devices Implanted Type Area Home Health Attendant Device Identifier Shelf Expiration Date Model / Serial / Lot Liner Lfit D 3.9mm 36mm Expanded X3 Acetabular - [id number] - [id number] Implanted:Qty: 1 on 07/24/2020 by Arvin Feliz MD at [facility] Left: Hip [employer] [id number] 06/05/2025 623-00-36D / / [id number] Shell Trident Ii D 50mm 3 Screw Hole Cluster Tritanium - [id number] - [id number] Implanted:Qty: 1 on 07/24/2020 by Arvin Feliz MD at [facility] Left: Hip [employer] [id number] 05/28/2025 702-04-50D / / [id number] Screw Trident Ii 30mm 6.5mm Low Profile Hexagonal Bone - [id number] - [id number] Implanted:Qty: 1 on 07/24/2020 by Arvin Feliz MD at [facility] Left: Hip [employer] [id number] 03/07/2025 5329-4476 / / [id number] Screw Trident Ii 30mm 6.5mm Low Profile Hexagonal Bone - [id number] - [id number] Implanted:Qty: 1 on 07/24/2020 by Arvin Feliz MD at [facility] Left: Hip [employer] [id number] 03/01/2025 7507-4499 / / [id number] Stem Accolade Ii 4 132d Femoral - [id number] - [id number] Implanted:Qty: 1 on 07/24/2020 by Arvin Feliz MD at [facility] Left: Hip [employer] [id number] 10/16/2024 1982-0841 / / [id number] Head V40 Standard 36mm Enhanced Stability Proven Modularity - [id number] - [id number] Implanted:Qty: 1 on 07/24/2020 by Arvin Feliz MD at [facility] Left: Hip [employer] [id number] 05/12/2025 6570-0-136 / / [id number] Advance Directives For more information, please contact: [phone] Latest Code Status on File Code Status [...] way: discussion with patient . Care Teams Computer Systems Hardware Analyst Relationship Specialty Start Date End Date Zackery Gallardo MD [address] [id number] PCP - General Oncology 07/18/20
--- OUTSIDE RECORDS SUMMARY | 2025-06-06 14:11 | XMS_ITS | Clinical Summary ---
Author Organization 175 [facility] Address [address] [place] [address] Phone Care Team Providers Care Unix Manager Name Role Phone Zackery Gallardo MD Primary Care Provider [phone] Allergies Active Allergy Reactions Criticality Noted Date [...] 5 mg tabletIndications :Coronary artery disease involving penobscot coronary artery of penobscot heart without angina pectoris Take 1 tablet [...] Obesity 10/25/2021 PAF (paroxysmal atrial fibri llation) ([facility] V24, [facility] V28) 10/25/2021 Assessment & Plan (02/18/2025 11:25 AM EDT): Patient with 1 episode of documented paroxysmal atrial fibrillation. No further episodes. Patient had a quality assurance monitor body completed in the past which showed no recurrent atrial fibrillation. She denies any symptoms of recurrence and is no longer on anticoagulation. Pulmonary nodules 03/23/2019 Obstructive sleep apnea 03/03/2019 Overview (10/07/2024): Obstructive sleep apnea mild [facility] [place] Sleep Apnea Test: Date 03/01/2019; Wt [...] Encounters Date Type Department Care Team Description 05/13/2025 Telephone [facility] [address] [place] [id number] Prakash Fuentes MD 04/28/2025 8:30 AM EDT Ancillary Procedure [facility] [address] [place] [address] PAF (paroxysmal atrial fibrillation) (CMS/HCC V24, CMS/HCC V28) 04/20/2025 Telephone [facility] [address] [place] [address] Prakash Fuentes MD 03/07/[address] [place] [phone] Zackery Gallardo MD from Last 3 Months Immunizations Name Administration [...] TOTAL HIP; Surgeon: Arvin Feliz MD; Location: [facility]); Service: Orthopedics; Laterality: Left; BREAST SURGERY 2002 Right PROCEDURE: IL UNLISTED PROCEDURE BREAST; COMMENT: neg UPPER GASTROINTESTINAL [...] BSO OTHER SURGICAL HISTORY 07/24/2020 Left PROCEDURE: IL ARTHRP ACETBLR/PROX FEM PROSTC AGRFT/ALGRFT; COMMENT: L total hip arthroplasty Medical History Medical History Date Comments High blood pressure DX:High bloo d pressure Peptic ulceration DX:Peptic ulce ration Pulmonary nodules DX:Pulmonary n odules Anxiety and depression DX:Anxiet y and depression Hypertensive crisis 12/2019 DX:Hypertens levy crisis Hyperlipidemia DX:Hyperlipidemi a Heart murmur DX:Heart murmur Migraine headache DX:Migraine he adache GERD (gastroesophageal reflu x disease) DX:GERD (gastroesophageal re flux disease) Urinary urgency DX:Urinary urgen cy PONV (postoperative nausea a nd vomiting) DX:PONV (postoperative nause a and vomiting) Cancer ([facility] V24, [facility] V28) DX:Cancer (HCC);COMMENT:BLADDER-CHEMO History of transfusion DX:Histor y of transfusion Osteoarthritis DX:Osteoarthriti s Sleep apnea, obstructive DX:Slee p apnea, obstructive;COMMENT:Mild MEENA and central sleep apnea per pulmonology note 02/2020-not COMPLIANT WITH CPAP Bladder cancer ([facility] V24, [facility] V28) DX:Bladder cancer ([facility]); COM MENT: Follows with Dr. Lopez and in [place] Hyperlipidemia DX:Hyperlipidemi a Depression DX:Depression Left elbow [...] disease 11/01/2021 PAF (paroxysmal atrial fibri llation) ([facility] V24, [facility] V28) 10/25/2021 BRBPR (bright red blood per rectum) Gastritis S/P Ercp Family History Medical History Relation Name Comments Cancer Brother 1 SKIN-MELANOMA Heart disease Brother 1 Hyperlipidemia Brother 1 Hypertension Brother 1 No Known Problems Brother 2 No Known Problems Daughter 1 No Known Problems Daughter 2 No Known Problems Daughter 3 No Known Problems Daughter 4 Heart attack Father Heart disease Father [place] Hyperlipidemia Father Hypertension Father Other: Cardiac Disease [...] 02/18/2025 8:50 AM EDT Plan of Treatment Health Maintenance Due Date Last Done Comments Zoster Vaccines (1 of 2) 1980 Cervical Cancer Screening: Pap Smear 1982 Pneumococcal Vaccine: 50+ Years (1 of 1 - PCV) 2011 Cholesterol Screening (Lipid Panel) 08/24/2022 HIV Screening 08/24/2022 Hypertension/CHF/CAD Annual BMP Blood Test 08/24/2022 Medicare Annual Wellness Visit 08/24/2022 Social Influencers of Health Screening 08/24/2022 Depression Screening 09/15/2024 COVID-19 Vaccine ( season) 2025 06/28/2023, 06/30/2022, 10/13/2021, Additional history exists Influenza Vaccine (#1) 2025 4, 05/16/2024, 06/20/2023, [...] this topic Medical Devices Implanted Type Area Summer Law Clerk Device Identifier Shelf Expiration Date Model / Serial / Lot Liner Lfit D 3.9mm 36mm Expanded X3 Acetabular - [id number] Implanted:Qty: 1 on 07/24/2020 by Arvin Feliz MD Left: Hip [employer] [id number] 06/05/2025 623-00-36D / / [id number] Shell Trident Ii D 50mm 3 Screw Hole [facility] - [id number] Implanted:Qty: 1 on 07/24/2020 by Arvin Feliz MD Left: Hip [employer] [id number] 05/28/2025 702-04-50D / / [id number] Screw Trident Ii 30mm 6.5mm Low Profile Hexagonal Bone - [id number] Implanted:Qty: 1 on 07/24/2020 by Arvin Feliz MD Left: Hip [employer] [id number] 03/07/2025 [id number] / / [id number] Screw Trident Ii 30mm 6.5mm Low Profile Hexagonal Bone - [id number] Implanted:Qty: 1 on 07/24/2020 by Arvin Feliz MD Left: Hip [employer] [id number] 03/01/2025 6810-5364 / / [id number] Stem Accolade Ii 4 132d Femoral - [id number] Implanted:Qty: 1 on 07/24/2020 by Arvin Feliz MD Left: Hip [employer] [id number] 10/16/2024 [id number] / / [id number] Head V40 Standard 36mm Enhanced Stability Proven Modularity - [id number] Implanted:Qty: 1 on 07/24/2020 by Arvin Feliz MD Left: Hip [employer] [id number] 05/12/2025 6570-0-136 / / [id number] Procedures Procedure Name Priority Date/Time Associated Diagnosis Comments CARDIAC HOLTER MONITOR (REPORT GENERATED IN HOUSE) Routine 04/28/2025 8:32 AM EDT PAF (paroxysmal atrial fibrillation) (CMS/HCC V24, CMS/HCC V28) SCREENING MAMMOGRAPHY BI 2-VIEW BREAST INC CAD Routine 02/13/2024 9:07 AM EDT Encounter for screening mammogram for malignant neoplasm of breast HEPATITIS C SCREENING Routine 04/30/2022 COLONOSCOPY Routine 05/07/2018 from Last 3 Months or Most Recently Relevant to Health Maintenance Results * CARDIAC HOLTER MONITOR (REPORT GENERATED IN HOUSE) (04/28/2025 8:32 AM EDT) Anatomical Region Laterality Modality Cardiac Diagnost ic Narrative 05/02/2025 2:46 PM EDT [facility] DIAGNOSTIC TESTING DEPARTMENT [address] [place] [address], [id number], [place] [address] TEL: FAX: Type of Test: 24 Hour Holter Monitor Date of Test: 04/28/2025 Ordering Provider: Barbara Mcgarry NP Reason for Test: PAF (paroxysmal atrial fibrillation) PVCA Rn Examiner Findings: 1: Normal Sinus Rhythm with periods of Sinus Bradycardia. 2: Heart rate range was 41-136 bpm with an average of 60 bpm. 3: Rare PACs and atrial pairs. Rare PVCs. 4: No significant pause, longest R-R was 1.6 seconds at 2:14 AM. 5: Diary returned with symptoms of lightheadedness, shortness of breath, dizziness, nausea, and exercise noted. EKG at those times showed mainly Sinus Tachycardia and rare isolated PACs and PVCs. Heart rates were in the range of 62-136 bpm. Impression: Normal sinus rhythm with an average heart rate of 60 bpm.Patient's symptoms generally correlate with normal sinus rhythm or sinus tachycardia sometimes with PACs or PVCs. No sustained atrial or ventricular arrhythmias. Barbara Mcgarry NP CV CARDIAC SERVICES PROCEDUR ES Final Result * SCREENING MAMMOGRAPHY BI 2-VIEW BREAST INC [...] % Breast cancer risk category Low (<15%) Result [facility] Zackery Gallardo MD IMG XR PROCEDURES Final Result * Hepatitis C Screening (04/30/2022) Pathologist [facility] Hepatitis C Screening abstracted Result [facility] Historical Provider HEALTH MAINTENANCE Final Result * Colonoscopy (05/07/2018) Pathologist [facility] Colonoscopy normal, abstracted Anatomical Region Laterality Modality Other Result [facility] Historical Provider HEALTH MAINTENANCE Final Result from Last 3 Months or Most Recently Relevant to Health Maintenance Insurance MEDICARE MEDICAID [place] [facility] Care Teams Unix Manager Relationship Specialty Start Date End Date Zackery Gallardo MD [address] [place] [address] PCP - General Oncology 10/06/24
--- OUTSIDE RECORDS SUMMARY | 2025-06-06 14:11 | XMS_ITS | Clinical Summary ---
Author Organization [facility] Address [address] [employer] [address] [address] Phone Care Team Providers Care Bacon Skin Lifter Name Role Phone Zackery Gallardo MD Primary Care Provider [phone] Allergies Active Allergy Reactions Criticality Noted Date Comments Cefaclor Rash Low 08/29/2017 Doxycycline GI Upset,Other (See Comments) Medium 09/29/2017 GASTRIC ULCER Peptic ulcerations GASTRIC ULCER Peptic ulcerations Opioids - Morphine Analogues Nausea and/or Vomiting 11/24/2023 Penicillins Rash Low 08/29/2017 Sulfa (Sulfonamide Antibiotics) Rash Low 08/29/2017 Medications lamoTRIgine (LAMICTAL) 150 MG tablet 2 (two) times a day. Active escitalopram oxalate (LEXAPRO) 5 MG tablet 0 Active rosuvastatin (CRESTOR) 20 MG tablet 40mg 1 Active olmesartan (BENICAR) 40 mg tablet Take 40 mg by mouth daily. Active LORazepam (ATIVAN) 2 MG tablet Take 1 mg by mouth every 6 (six) hours as needed for anxiety. Active ondansetron (ZOFRAN) 4 MG tablet Take 4 mg by mouth every 8 (eight) hours as needed for nausea. Active amLODIPine (NORVASC) 2.5 MG tablet Take 2.5 mg by mouth daily. 5mg Active meloxicam (MOBIC) 15 MG tablet Take 1 tablet by mouth as needed. 4 Active phenazopyridine (PYRIDIUM) 200 MG tablet Take 200 mg by mouth 3 (three) times a day as needed. Active oxyCODONE 5 MG immediate release tablet every 4 (four) hours as needed. 2.5 mg as needed Active solifenacin (VESICARE) 10 MG tablet as needed. Active aspirin 81 mg chewable tablet Take 81 mg by mouth daily. Active estradioL (ESTRACE) 0.01 % (0.1 mg/gram) vaginal cream Place 2 g vaginally daily. Active cetirizine (ZYRTEC) 10 MG tablet Take 10 mg by mouth daily. Active fluticasone propionate (FLONASE) 50 mcg/actuation nasal spray 1 spray by Nasal route daily. Active linaCLOtide (LINZESS) 145 mcg Cap Take 145 mcg by mouth daily. And 290 mg prn if needed Active Active Problems No known active problems Family History Medical History Relation Comments Cancer Maternal Aunt 2 Cancer Maternal Grandmother 2 Cancer Mother 2 Cancer Paternal Grandmother 2 Hypertension Sibling 2 Relation Status Comments Maternal Aunt 1 Maternal Aunt 2 Maternal Grandmother 1 Maternal Grandmother 2 Mother 1 Mother 2 Paternal Grandmother 1 Paternal Grandmother 2 Sibling 1 Sibling 2 Social History Tobacco Use Types Packs/Day Years Used Date Smoking Tobacco: Never Smokeless Tobacco: Never Tobacco Cessation:Counseling Given: Not Answered Alcohol Use Standard Drinks/Week Comments Yes 0 [...] Orientation Straight 11/19/2023 8: 43 AM EST Last Filed Vital Signs Vital Sign Reading Time Taken Comments Blood Pressure 153/76 07/21/2024 9:57 AM EST Pulse 45 07/21/2024 9:57 AM EST Temperature 36.1 C (97 F) 07/21/2024 9:57 AM EST Respiratory Rate 12 07/21/2024 9:57 AM EST Oxygen Saturation 98% 07/21/2024 9:57 AM EST Inhaled Oxygen Concentration - - Weight 80.3 kg (177 lb) 07/14/2024 10:30 AM EDT Height 163.8 cm (5' 4.5 ) 07/14/2024 10:30 AM ED T Body Mass Index 29.91 07/14/2024 10:30 AM EDT Plan of Treatment Health Maintenance Due Date Last Done Comments LIPID PANEL 1961 DEPRESSION SCREENING 1973 HEPATITIS C SCREENING 1979 HIV ONE-TIME SCREENING (18-65 YEARS) 1979 PNEUMOCOCCAL VACCINES (50+ years) (1 of 2 - PCV) 1980 ZOSTER VACCINES (1 of 2) 1980 PAP SMEAR 1982 MAMMOGRAM 2001 COLOGUARD 2006 COLONOSCOPY 2006 COLORECTAL CANCER SCREENING 2006 FIT TEST 2006 FOBT 2006 SIGMOIDOSCOPY 2006 VIRTUAL COLONOSCOPY 2006 CREATININE LEVEL 11/18/2024 11/19/2023 POTASSIUM LEVEL 11/18/2024 11/19/2023 INFLUENZA VACCINE (#1) 2025 , 06/20/2023, 06/28/2022, Additional history exists COVID-19 VACCINE ( season) 2025 06/28/2023, 06/30/2022, 10/13/2021, Additional history exists SCREENING FOR DIABETES 11/18/2026 11/19/2023 Adult Td,Tdap Booster 01/30/2033 01/30/2023 RSV VACCINE (1 - 1-dose 75+ series) 2036 SMOKING STATUS SCREENING (Once After 26 Yrs) Completed 07/21/2024 HEPATITIS A VACCINES Aged Out No long er eligible based on patient's age to complete this topic HIB VACCINES Aged Out No longer eligi ble based on patient's age to complete this topic MENINGOCOCCAL VACCINES (ACWY) Aged Out No longer eligible based on patient's age to complete this topic MENINGOCOCCAL VACCINES (B) Aged Out N o longer eligible based on patient's age to complete this topic Medical Devices Implanted Type Area Summer Internship Device Identifier Shelf Expiration Date Model / Serial / Lot Plate C4 Plate Neck Prosthetic Joint Prosthetic Joint Left: Hip Stent Stent Coronary Procedures Procedure Name Priority Date/Time Associated Diagnosis Comments BASIC METABOLIC PANEL STAT 11/19/2023 9:21 AM EST from Last 3 Months or Most Recently Relevant to Health Maintenance Results * Basic metabolic panel (11/19/2023 9:21 AM EST) SODIUM 141 133 - 146 mmol/L [facility] CHLORIDE 103 96 - 108 mmol/L [facility] POTASSIUM 5.0 3.3 - 5.1 mmol/L [facility] CO2 29 21 - 35 mmol/L [facility] BUN 16 6 - 19 mg/dL [facility] CREATININE 0.90 0.5 - 1.5 mg/dL [facility] GLUCOSE 97 70 - 99 mg/dL [facility] CALCIUM 9.8 8.4 - 10.3 mg/dL [facility] EGFR 72 >59 mL/min/1.7 3m2 [facility] Comment:Estimated glomerular filtration rate calculated using the CKD-EPI refit equation. ANION GAP 14 10 - 20 mmol/L [facility] Blood 11/19/2023 9:21 AM EST 11/19/2023 9:26 AM EST us Tao Reynolds MD LAB BLOOD ORDERAB LES Final Result [address] [id number] from Last 3 Months or Most Recently Relevant to Health Maintenance Insurance [facility] MED[facility] PART A & B [employer] [place] [employer] SUPPLEMENT [facility] PART A & B [employer] MEDEX SUPPLEMENT [facility] MEDICARE PART A & B [facility] A & B [facility] PART A & B [employer] MEDEX SUPPLEMENT [facility] MEDICARE PART A & B [employer] MEDEX SUPPLEMENT [facility] MEDICARE [facility] A & B [employer] MEDEX SUPPLEMENT [facility] A & B [facility] PART A & B [employer] MEDEX SUPPLEMENT [facility] MEDICARE PART A & B [employer] MEDEX SUPPLEMENT Care Teams Bacon Skin Lifter Relationship Specialty Start Date End Date Zackery Gallardo MD [address] [place] [address] PCP - General 09/18/17 Additional Source Comments The information contained in this document represents components of the legal health record. It is not the complete legal health record.[facility]
--- OUTSIDE RECORDS SUMMARY | 2025-06-06 14:11 | XMS_ITS | Encounter Summary ---
Author Organization [facility] Address [address] [facility] [address] [place] [address] Phone Care Team Providers Care Detective Bureau Chief Name Role Phone Zackery Gallardo MD Primary Care Provider [phone] Encounter Details Date Type Department Care Team (Late st Contact Info) Description 11/26/2023 Procedure Pass [facility] Endoscopy Admitting Dept Virtual Department [address] [place] [address] Social History Tobacco Use Types Packs/Day Years [...] on filedocumented in this encounter Care Teams Detective Bureau Chief Relationship Specialty Start Date End Date Zackery Gallardo MD [address] [place] [address] PCP - General 09/18/17 documented as of this encounter Additional Source Comments The information contained in this document represents components of the legal health record. It is not the complete legal health record.[facility]
--- OUTSIDE RECORDS SUMMARY | 2025-06-06 14:11 | XMS_ITS | Clinical Summary ---
Author Organization [facility] Address [address] [place] [address] Care Team Providers Care Clinical Technician Name Role Phone Zackery Gallardo MD Primary Care Provider [phone] Medications olmesartan (BENICAR) 40 MG tablet TAKE [...] age to complete this topic Care Teams Clinical Technician Relationship Specialty Start Date End Date Zackery Gallardo MD [address] [place] [address] [address] KADINERIS HARPER PCP - General 09/25/20
--- OUTSIDE RECORDS SUMMARY | 2025-06-06 14:11 | XMS_ITS | Encounter Summary ---
Author Organization [facility] Address [address] [place] [address] Phone Care Team Providers Care Web Sizer Name Role Phone Zackery Gallardo MD Primary Care Provider [phone] Encounter Details Date Type Department Care Team (Late st Contact Info) Description 11/19/2023 Procedure Pass [facility], [facility] Scan - [facility] [address] [place] [address] Social History Tobacco Use Types Packs/Day Years [...] with a working camera? Not on file Comments No Sex and Gender Information Value Date Recorded Sex Assigned at Female 11/19/2023 8:43 AM EST Legal Sex Female 7:02 PM EST Gender Identity Female 11/19/2023 8:43 AM EST Sexual Orientation Straight 11/19/2023 8: 43 AM EST documented as of this encounter Functional Status * Calculated C-SSRS Risk Score (Lifetime/Recent) Answer Date of Assessment Author No Risk Indicated 11/19/2023 8:45 AM Tracey Manzano RN * [place] Suicide Severity Rating Scale (Screener/Recent Self-Report) Question Answer Date of Assessment Author 1. Wish to be (Past 1 Month) No 11/19/2023 8:45 AM Mayuri Davies RN 2. Non-Specific Active Suicidal Thoughts (Past 1 Month) No 11/19/2023 8:45 AM Mayuri Davies RN 6. Suicidal Behavior (Lifetime) No 11/19/2023 8:45 AM Mayuri Davies RN documented as of this encounter Plan of Treatment Not on file documented as of this encounter Visit Diagnoses Not on filedocumented in this encounter Care Teams Web Sizer Relationship Specialty Start Date End Date Zackery Gallardo MD [address] [place] [address] PCP - General 09/18/17 documented as of this encounter Additional Source Comments The information contained in this document represents components of the legal health record. It is not the complete legal health record.[facility]
--- OUTSIDE RECORDS SUMMARY | 2025-06-06 14:11 | XMS_ITS | Encounter Summary ---
Author Organization [facility] Address [address] [facility] [address] [place] [address] Phone Care Team Providers Care Trailer Steerer Name Role Phone Zackery Gallardo MD Primary Care Provider [phone] Encounter Details Date Type Department Care Team (Late st Contact Info) Description 07/21/2024 Procedure Pass [place] Admitting Dept - Virtual Department [address] [place] [address] Social History Tobacco Use Types Packs/Day Years [...] on filedocumented in this encounter Care Teams Trailer Steerer Relationship Specialty Start Date End Date Zackery Gallardo MD [address] [place] [address] PCP - General 09/18/17 documented as of this encounter Additional Source Comments The information contained in this document represents components of the legal health record. It is not the complete legal health record.[facility]
== END 2025-06-06 12:32 | disposition home or self-care (01) ==
LOC: HO.HOP 11:33
PROVIDERS: PCP Internal Medicine Medical Oncology; Visit Provider Psychiatry & Neurology Psychiatry
DX: F41.1 Generalized anxiety disorder (principal); F43.10 Post-traumatic stress disorder, unspecified; I10 Essential (primary) hypertension
CPT/HCPCS: 99214

== ENCOUNTER → 2025-06-06 11:33 | Outpatient (BNVA) | payer MEDICARE, OTHER, SELFPAY | PROVIDERS: PCP Internal Medicine Medical Oncology; Visit Provider Psychiatry & Neurology Psychiatry | DX: F41.1 Generalized anxiety disorder (principal); F43.10 Post-traumatic stress disorder, unspecified; I10 Essential (primary) hypertension | CPT/HCPCS: 99212 ==

== ENCOUNTER 2025-08-18 13:58 | Outpatient (AMB) | payer MEDICARE, MEDICAID, SELFPAY ==
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
== END 2025-08-18 14:39 | disposition home or self-care (01) ==
LOC: HO.HOP 13:58
PROVIDERS: PCP Internal Medicine Medical Oncology; Visit Provider Psychiatry & Neurology Psychiatry
DX: F43.10 Post-traumatic stress disorder, unspecified (principal); F32.5 Major depressive disorder, single episode, in full remission
CPT/HCPCS: 99214

== ENCOUNTER → 2025-08-18 13:58 | Outpatient (BNVA) | payer MEDICARE, MEDICAID, SELFPAY | PROVIDERS: PCP Internal Medicine Medical Oncology; Visit Provider Psychiatry & Neurology Psychiatry | DX: F32.5 Major depressive disorder, single episode, in full remission (principal); F43.10 Post-traumatic stress disorder, unspecified | CPT/HCPCS: 99212 ==